=== PATIENT | male | born 1975 ===

== ENCOUNTER → 2019-12-05 09:55 | Outpatient (BNVA) | payer OTHER, SELFPAY | PROVIDERS: PCP Nurse Practitioner Family; Referring Provider Nurse Practitioner Family; Visit Provider Orthopaedic Surgery | DX: Z47.1 Aftercare following joint replacement surgery (principal); Z96.651 Presence of right artificial knee joint | CPT/HCPCS: 99212 ==

== ENCOUNTER 2019-12-18 14:38 | Outpatient (REF) | payer OTHER, SELFPAY | END 2019-12-18 14:39 | disposition home or self-care (01) | LOC: HO.LAB 14:38 | PROVIDERS: Visit Provider Nurse Practitioner Family | DX: Z20.828 Contact with and (suspected) exposure to other viral communicable diseases (principal) | CPT/HCPCS: 87635 ==

== ENCOUNTER 2020-01-08 09:00 | Outpatient (RCR) | payer OTHER, SELFPAY ==
--- NOTE | 2020-01-16 08:54 | MHC.PT.DC ---
[facility] [place] Office [place] Office [place] Office [address] Malick Giordano 140 [facility] [phone] F: [phone] F: [phone] F: [phone] F: [phone] Physical Therapy Discharge Report Diagnosis: R TKA Date of Surgery: 10/22/2019 Date of Evaluation: 11/19/19 Date of Discharge: 01/16/20 Treatments to Date: 5 Cancellations to Date: 5 No Shows to Date: 6 Discharge Status: Visit Non-compliance Discharge Summary: The patient has been noncompliant with attendance during this physical therapy plan of care. He did obtain 120 degrees knee flexion and 0 degrees knee extension last visit; however, this was after increased time to warm up and performing active assisted range of motion exercises. He has a home exercise program including knee active assisted range of motion, quad strengthening, and hip strengthening. He has no-showed six total visits and is discharged from this physical therapy plan of care. Electronically signed by: Maria R Guido PT, DPT Please sign and return to therapist. Thank you for your referral.
== END 2020-01-16 08:55 | disposition other institution (70) ==
LOC: HO.PT 09:00
PROVIDERS: PCP Nurse Practitioner Family; Visit Provider Physician Assistant
DX: M17.31 Unilateral post-traumatic osteoarthritis, right knee (principal)
CPT/HCPCS: 97110; 97140; 97530

== ENCOUNTER 2020-01-16 08:50 | Outpatient (REF) | payer OTHER, SELFPAY ==
--- NOTE | 2020-01-16 08:57 | XR_ITS ---
EXAMINATION: CR X-RAY RIGHT KNEE 2 VIEW, X-RAY KNEE STANDING BILATERAL CLINICAL INFORMATION: Right knee arthroplasty, follow-up. COMPARISON: 10/22/2019 Right knee radiographs. TECHNIQUE: PA and lateral views of the right knee as well as bilateral standing views were obtained. FINDIN The patient is status post right knee arthroplasty showing good anatomic alignment with no evidence for hardware malfunction. There is no acute fracture or dislocation. Mild to moderate soft tissue swelling surrounds the right knee. Mild intra-articular soft tissue fullness is also seen. Mild medial femoral-tibial joint space narrowing is seen. No acute abnormality. IMPRESSI 1. Status post right knee arthroplasty without hardware abnormality with presumed postsurgical residual joint effusion and soft tissue swelling. 2. Mild left medial femoral-tibial joint space narrowing.
== END 2020-01-16 08:51 | disposition home or self-care (01) ==
LOC: HO.HOSX 08:50
PROVIDERS: Visit Provider Orthopaedic Surgery
DX: Z96.651 Presence of right artificial knee joint (principal)
CPT/HCPCS: 73560; 73565; 99212

== ENCOUNTER 2020-01-26 10:32 | Outpatient (REF) | payer OTHER, SELFPAY | END 2020-01-26 10:33 | disposition home or self-care (01) | LOC: HO.LAB 10:32 | PROVIDERS: PCP Nurse Practitioner Family; Visit Provider Internal Medicine | DX: Z20.828 Contact with and (suspected) exposure to other viral communicable diseases (principal) | CPT/HCPCS: C9803; U0003 ==

== ENCOUNTER 2020-02-13 11:37 | Outpatient (REF) | payer OTHER, SELFPAY | END 2020-02-13 11:38 | disposition home or self-care (01) | LOC: HO.LAB 11:37 | PROVIDERS: Visit Provider Internal Medicine | DX: Z20.828 Contact with and (suspected) exposure to other viral communicable diseases (principal) | CPT/HCPCS: C9803; U0003 ==

== ENCOUNTER 2020-03-08 08:34 | Outpatient (REF) | payer OTHER, SELFPAY | END 2020-03-08 08:35 | disposition home or self-care (01) | LOC: HO.LAB 08:34 | PROVIDERS: Visit Provider Internal Medicine | DX: Z20.822 Contact with and (suspected) exposure to COVID-19 (principal) | CPT/HCPCS: 36415; C9803; U0003 ==

== ENCOUNTER 2020-03-25 09:06 | Outpatient (REF) | payer OTHER, SELFPAY ==
--- NOTE | 2020-03-25 09:47 | XR_ITS ---
EXAMINATION: XR KNEE, BILATERAL XR KNEE, RIGHT CLINICAL INFORMATION: Pain. COMPARISON: 01/16/2020 TECHNIQUE: AP standing view of both knees. Lateral and sunrise views of the right knee. FINDINGS: Right knee: Total right knee arthroplasty. The distal femoral component articulates appropriately with the tibial plateau and patellar components. No periprosthetic lucency or fracture. No joint effusion. The soft tissues are unremarkable. Left knee: No fracture or subluxation. Mild medial compartment joint space narrowing. Small marginal osteophytes of the medial and lateral compartments. XR/XR knee standing BI IMPRESSION: Total right knee arthroplasty in typical positioning and alignment.
--- NOTE | 2020-03-25 09:47 | XR_ITS ---
EXAMINATION: XR KNEE, BILATERAL XR KNEE, RIGHT CLINICAL INFORMATION: Pain. COMPARISON: 01/16/2020 TECHNIQUE: AP standing view of both knees. Lateral and sunrise views of the right knee. FINDINGS: Right knee: Total right knee arthroplasty. The distal femoral component articulates appropriately with the tibial plateau and patellar components. No periprosthetic lucency or fracture. No joint effusion. The soft tissues are unremarkable. Left knee: No fracture or subluxation. Mild medial compartment joint space narrowing. Small marginal osteophytes of the medial and lateral compartments. XR/XR knee RT 2V IMPRESSION: Total right knee arthroplasty in typical positioning and alignment.
== END 2020-03-25 09:07 | disposition home or self-care (01) ==
LOC: HO.HOSX 09:06
PROVIDERS: Visit Provider Orthopaedic Surgery
DX: M25.561 Pain in right knee (principal); Z96.651 Presence of right artificial knee joint
CPT/HCPCS: 73560; 73565; 99212

== ENCOUNTER → 2020-09-20 07:50 | Outpatient (BNV) | payer OTHER, SELFPAY | PROVIDERS: PCP Nurse Practitioner Family; Visit Provider Internal Medicine | DX: D53.9 Nutritional anemia, unspecified (principal); D69.6 Thrombocytopenia, unspecified; D47.2 Monoclonal gammopathy; R79.89 Other specified abnormal findings of blood chemistry | CPT/HCPCS: 99213; 99214; G2211 ==

== ENCOUNTER 2020-12-25 03:20 | Emergency (ER) | payer OTHER, SELFPAY ==
--- NOTE | ~2020-12-25 | CT_ITS ---
EXAMINATION: CT ABDOMEN AND PELVIS WITHOUT CONTRAST CLINICAL INFORMATION: Flank pain COMPARISON: 09/04/2019 TECHNIQUE: Multidetector volumetric imaging was performed from the superior aspect of the liver through the pubic symphysis. Sagittal and coronal reformatted images were obtained on the technologist's workstation. This CT examination was performed using dose optimization techniques as appropriate, variously including the following: *Automated exposure control *Adjustment of mA and/or kV according to patient size (this includes techniques or standardized protocols for targeted exams where dose is matched to indication/reason for exam; i.e. extremities or head) *Use of iterative reconstruction technique DLP: 1253 mGy-cm FINDINGS: LUNG BASES: The visualized lung bases are unremarkable. Coronary artery calcifications are present. LIVER, GALLBLADDER, AND BILIARY TREE: The liver demonstrates decreased echogenicity suspicious for fatty infiltration. No biliary ductal dilatation is present. The gallbladder is unremarkable with no evidence of radiopaque gallstones, gallbladder wall thickening, or obvious pericholecystic inflammatory changes. PANCREAS: Unremarkable. SPLEEN: Unremarkable. ADRENAL GLANDS: Unremarkable. KIDNEYS AND URETERS: There is a 2 mm calculus in the distal right ureter with mild hydronephrosis and perinephric stranding. Punctate calculi are present in the right lower pole. There are 2 calculi in the mid left kidney measuring up to 4 mm. No left hydronephrosis or ureteral calculus. BLADDER: Unremarkable. GASTROINTESTINAL TRACT: The small and large bowel are unremarkable. The appendix is unremarkable. No free fluid or free air is seen. ABDOMINAL WALL: No significant hernia is appreciated. LYMPH NODES: Normal. VASCULAR: Scattered atherosclerotic calcifications are noted. PELVIC VISCERA: Unremarkable. OSSEOUS STRUCTURES: Degenerative changes are present in the spine, most prominently in the lower lumbar spine. CT/CT abdomen pelvis wo con IMPRESSION: 1. Distal right ureteral calculus measuring 2 mm with mild hydronephrosis. 2. Additional bilateral renal calculi. 3. Coronary artery calcifications. Correlation with cardiac risk factors is recommended. 4. Hepatic steatosis.
[2020-12-25 03:27] VITALS: BP 150/80; PULSE 86; RESP 18; TEMP 36.6; O2SAT 99; BMI 38.3
[2020-12-25 04:07] LABS: MANUAL DIFF FLAG NO
[2020-12-25 04:08] LABS: Basophils Percent Auto 0.4 % (0-2); Eosinophils Absolute Auto 0.1 X10*3/uL (0.0-0.4); Eosinophils Percent Auto 1.2 % (0-4); Hematocrit 40.9 % (42-52); Hemoglobin 13.8 g/dl (14.0-18.0); Imm Gran Abs Auto 0.02 X10*3/uL (0.00-0.03); Imm Gran Pct Auto 0.3 % (0.0-0.4); Lymphocytes Absolute Auto 2.4 X10*3/uL (1.2-4.9); Lymphocytes Percent Auto 33.4 % (20-40); Mean Corpuscular HGB Conc 33.7 g/dl (31.0-36.0); Mean Corpuscular Hemoglobin 32.2 pg (27.0-33.0); Mean Corpuscular Volume 95.3 fL (80-98); Mean Platelet Volume 12.1 fL (9.4-12.4); Monocytes Absolute Auto 0.6 X10*3/uL (0.1-1.2); Monocytes Percent Auto 8.4 % (2-11); Neutrophils Absolute Auto 4.1 X10*3/uL (2.0-8.3); Neutrophils Percent Auto 56.3 % (45-73); Platelet Count 119 X10*3/uL (160-400); Red Blood Count 4.29 X10*6/uL (4.60-5.80); Red Cell Distribution Width 11.9 % (11.0-16.0); White Blood Count 7.3 X10*3/uL (4.8-10.8)
[2020-12-25 04:24] LABS: Appearance Urine HAZY; Color Urine YELLOW; Glucose Urine UA 100 MG/DL (NEG); Leukocyte Esterase Urine NEG (NEG); Nitrite Urine NEG (NEG); Specific Gravity - Urine >= 1.030 (1.005-1.025); UACC Culture Trigger NO; Urine Blood 3+ (NEG); Urine Ketones NEG (NEG); Urine Protein 1+ MG/DL (NEG-TRACE)
[2020-12-25 04:28] LABS: Alanine Aminotransferase 74 U/L (0-40); Albumin Level 4.7 g/dL (3.5-5.0); Alkaline Phosphatase 112 U/L (39-117); Anion Gap 14 (12-20); Aspartate Amino Transferase 57 U/L (5-37); Bilirubin Direct 0.6 mg/dL (0.0-0.5); Blood Urea Nitrogen 15 mg/dL (9-16); Calcium 9.5 mg/dL (8.4-10.2); Carbon Dioxide 27 mmol/L (22-29); Chloride 100 mmol/L (96-108); Creatinine Clr Calc Pharmacy 122.1; Estimated Glomerular Filt Rate > 60; Glucose Random 333 mg/dL (60-115); Lipase 25 U/L (8-78); Potassium 3.6 mmol/L (3.3-5.1); Sodium 137 mmol/L (135-145); Total Protein 8.2 g/dL (6.5-8.0)
[2020-12-25 04:31] LABS: Bacteria Urine 1+ /LPF; Granular Casts Urine 0-2 /LPF; Hyaline Casts Urine 0-2 /LPF; Mucus Urine 2+ /LPF; RBC Urine 50-75 /HPF (0); Squamous Epithelial Cell Urine 1+ /LPF; UACC CULT YES
[2020-12-25] MEDS: Ketorolac Tromethamine 15 MG/ML VIAL IVPUSH (05:20)
[2020-12-25] MEDS: 0.9 % Sodium Chloride 1,000 ML 999 ML IV (05:20)
[2020-12-25] MEDS: ondansetron HCL 4 MG/2 ML VIAL IVPUSH (05:20)
[2020-12-25 05:42] VITALS: BP 143/90; PULSE 72; RESP 15; TEMP 36.9; O2SAT 100
[2020-12-25 06:00] VITALS: BP 122/64; PULSE 73; RESP 16; TEMP 37.1; O2SAT 98
[2020-12-25 07:38] VITALS: BP 121/69; PULSE 70; RESP 14; TEMP 36.7; O2SAT 94
--- NOTE | 2020-12-25 07:57 | ED.GENADULT ---
HPI - General Adult General Chief complaint: General Medical Stated complaint: abd pain, nausea Time Seen by Provider: 12/25/20 05:16 Source: patient Mode of arrival: ambulatory History of Present Illness HPI narrative: 45-year-old male with history renal colic presents with acute onset of right-sided flank pain that was sharp and stabbing in nature with 10/10 pains associated with nausea and vomiting as well as chills. Denies any urinary symptoms, shortness of breath/chest pain/palpitations. Related Data Home Medications Medication Instructions Recorded Confirmed acetaminophen 325 mg tablet 325 mg PO DAILY 11/29/19 09/20/20 aspirin 325 mg tablet,delayed 325 mg PO BID 11/29/19 09/20/20 release atorvastatin 10 mg tablet 10 mg PO DAILY 11/29/19 09/20/20 cholecalciferol (vitamin D3) 50 50 mcg PO DAILY 11/29/19 09/20/20 mcg (2,000 unit) tablet ibuprofen 600 mg tablet 600 mg PO TID 11/29/19 09/20/20 levothyroxine 200 mcg tablet 200 mcg PO DAILY 11/29/19 09/20/20 lidocaine 5 % topical patch 1 patch TOPICAL DAILY 11/29/19 09/20/20 Previous Rx's Medication Instructions Recorded cyclobenzaprine 10 mg tablet 10 mg PO BEDTIME #14 tab 11/16/20 meloxicam 15 mg tablet 15 mg PO DAILY #14 tab 11/16/20 amoxicillin 500 mg tablet 2,000 mg PO ONCE 1 Days #4 tab 12/20/20 tamsulosin 0.4 mg capsule (Flomax) 0.4 mg PO BEDTIME 4 Days #4 cap 12/25/20 Allergies Allergy/AdvReac Type Severity Reaction Status Date / Time No Known Allergies Allergy Verified 11/16/20 16:30 [No Known Allergies*] Review of Systems Review of Systems: Pertinent positives and negatives as stated in HPI 10 point review of systems is otherwise negative. [facility] Past Medical History Source: nursing notes reviewed Medical History Hypothyroid Surgical History History of arthroscopy of right knee (~03/29/16) History of total right knee replacement (~09/2019) Family History Family History Father Stroke Heart attack Low blood pressure Mother No problems noted. Daughter No problems noted. 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 GENERAL: Obese, Well developed, well nourished HEAD: Normocephalic/atraumatic EYES: PERRLA, EOMI OROPHARYNX: no oral lesions noted, posterior pharynx clear and non-erythematous without noted tonsillar enlargement/erythema/exudates NECK: Supple, no adenopathy LUNGS: Normal breath sounds. No adventitious sounds or accessory muscle use. SpO2<94> CARDIOVASCULAR: Regular rate and rhythm without noted murmurs ABDOMEN: Obese, Soft, right-sided abdominal tenderness, non-distended with bowel sounds. NEUROLOGIC: Alert and oriented x 4. Course Course Course Narrative: 45-year-old male with history and clinical presentation suspicious for renal colic/ureterolithiasis, but will rule out UTI, gallbladder, appendicitis. Patient received antiemetic, IV fluids as well as pain medication. On review of all investigations findings consistent with renal colic and ureterolithiasis as well as hyper glycemia. Medical Decision Making Lab Data Result diagrams: 12/25/20 04:01 12/25/20 04:01 Labs: Lab Results 12/25/20 12/25/20 12/25/20 Range/Units 04:01 04:01 04:19 WBC 7.3 (4.8-10.8) X10*3/uL RBC 4.29 L (4.60-5.80) X10*6/uL Hgb 13.8 L (14.0-18.0) g/dl Hct 40.9 L (42-52) % MCV 95.3 (80-98) fL MCH 32.2 (27.0-33.0) pg MCHC 33.7 (31.0-36.0) g/dl RDW 11.9 (11.0-16.0) % Plt Count 119 L (160-400) X10*3/uL MPV 12.1 (9.4-12.4) fL Immature Gran % (Auto) 0.3 (0.0-0.4) % Neut % (Auto) 56.3 (45-73) % Lymph % (Auto) 33.4 (20-40) % Dickson % (Auto) 8.4 (2-11) % Eos % (Auto) 1.2 (0-4) % Baso % (Auto) 0.4 (0-2) % Lymph # (Auto) 2.4 (1.2-4.9) X10*3/uL Dickson # (Auto) 0.6 (0.1-1.2) X10*3/uL Eos # (Auto) 0.1 (0.0-0.4) X10*3/uL Baso # (Auto) 0.0 (0.0-0.2) X10*3/uL Abs Immat Gran (auto) 0.02 (0.00-0.03) X10*3/uL Absolute Neuts (auto) 4.1 (2.0-8.3) X10*3/uL Absolute Nucleated RBC 0.000 (0.0-0.012) X10*3/uL Nucleated RBC % (auto) 0.0 (0.0-0.2) /100WBC Sodium 137 (135-145) mmol/L Potassium 3.6 D (3.3-5.1) mmol/L Chloride 100 (96-108) mmol/L Carbon Dioxide 27 (22-29) mmol/L Anion Gap 14 (12-20) BUN 15 (9-16) mg/dL Creatinine 1.18 (0.5-1.4) mg/dL Estim Creat Clear Calc 122.1 Estimated GFR > 60 Random Glucose 333 H D (60-115) mg/dL Calcium 9.5 (8.4-10.2) mg/dL Total Bilirubin 2.0 H (0.0-1.0) mg/dL Direct Bilirubin 0.6 H (0.0-0.5) mg/dL AST 57 H (5-37) U/L ALT 74 H (0-40) U/L Alkaline Phosphatase 112 D (39-117) U/L Total Protein 8.2 H (6.5-8.0) g/dL Albumin 4.7 (3.5-5.0) g/dL Lipase 25 (8-78) U/L Urine Color YELLOW Urine Appearance HAZY Urine pH 6.0 (5.0-8.0) Ur Specific [place] >= 1.030 H (1.005-1.025) Urine Protein 1+ H (NEG-TRACE) MG/DL Urine Glucose (UA) 100 H (NEG) MG/DL Urine Ketones NEG (NEG) MG/DL Urine Blood 3+ H (NEG) Urine Nitrite NEG (NEG) Ur Leukocyte Esterase NEG (NEG) Urine RBC 50-75 H (0) /HPF Urine WBC 5-9 H (0-4) /HPF Ur Squamous Epith Cells 1+ /LPF Urine Bacteria 1+ /LPF Hyaline Casts 0-2 /LPF Granular Casts 0-2 /LPF Urine Mucus 2+ /LPF Discharge Plan Discharge Clinical Impression: Renal colic, Ureterolithiasis, Hyperglycemia Patient Disposition: Home, Self-Care Instructions: Renal Colic (ED), Nondiabetic Hyperglycemia (ED), Ureteral Stones (ED) Additional Instructions: Tylenol 1000 mg, orally, every 6 hours as needed for pain control. Do not exceed 4000 mg within 24 hours. Ibuprofen 400 mg, orally with milk or food, every 6 hours as needed for pain control. Follow-up with your primary care provider Sunday morning for re-evaluation further outpatient management of your elevated glucose level You have been provided with a referral to see Urology regarding your kidney stones. Return to the ER for acute worsening of symptoms. Prescriptions: New tamsulosin [Flomax] 0.4 mg capsule 0.4 mg PO BEDTIME 4 Days Qty: 4 RF: 0 No Action amoxicillin 500 mg tablet 2,000 mg PO ONCE 1 Days Qty: 4 RF: 3 meloxicam 15 mg tablet 15 mg PO DAILY Qty: 14 RF: 0 cyclobenzaprine 10 mg tablet 10 mg PO BEDTIME Qty: 14 RF: 0 levothyroxine 200 mcg tablet 200 mcg PO DAILY RF: 0 aspirin 325 mg tablet,delayed release (DR/EC) 325 mg PO BID RF: 0 acetaminophen 325 mg tablet 325 mg PO DAILY RF: 0 lidocaine 5 % adhesive patch,medicated 1 patch topical DAILY RF: 0 ibuprofen 600 mg tablet 600 mg PO TID RF: 0 cholecalciferol (vitamin D3) 50 mcg (2,000 unit) tablet 50 mcg PO DAILY RF: 0 atorvastatin 10 mg tablet 10 mg PO DAILY RF: 0 Referrals: Gonsalo Jean Baptiste FNP-MAKENZIE [Primary Care Provider] - 2 days Joe Oneal MD [Physician] - 2 days (2mm right distal stone, hx renal colic)
[2020-12-25 08:00] VITALS: BP 119/51; PULSE 70; O2SAT 96
[2020-12-25] MEDS: fentaNYL citrate/PF 100 MCG/2 ML VIAL 25 MCG IVPUSH (08:47)
== END 2020-12-25 09:30 | disposition home or self-care (01) ==
PROVIDERS: Emergency Provider Emergency Medicine; PCP Nurse Practitioner Family
DX: N20.1 Calculus of ureter (principal); N23 Unspecified renal colic; R73.9 Hyperglycemia, unspecified; Z79.899 Other long term (current) drug therapy
CPT/HCPCS: 36415; 74176; 80053; 81001; 82248; 83690; 85025; 87086; 96361; 96374; 96375; 99284; 99285; J1885; J2405; J3010

== ENCOUNTER 2020-12-25 16:14 | Emergency (ER) | payer OTHER, SELFPAY ==
[2020-12-25 16:31] VITALS: BP 170/100; BP 197/89; PULSE 76; PULSE 84; RESP 18; TEMP 36.6; O2SAT 95; O2SAT 97; BMI 38.3
--- NOTE | 2020-12-25 16:34 | ED_ITS ---
HPI - Abdominal Pain General Chief Complaint: Urogenital-Male Stated Complaint: flank pain Time Seen by Provider: 12/25/20 16:25 Source: patient and EMS Mode of arrival: EMS History of Present Illness HPI narrative: 45-year-old male with a past medical history of renal stones, recently diagnosed with distal right ureteral stone and our ED early this morning presenting complaining of persistent/worsening right lower quadrant abdominal pain radiating to right flank with associated nausea, vomiting, and retching. 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 Patient denies polydipsia/polyuria, headache, vision changes, CP/SOB, fever, dysuria, hematuria On chart review 2mm calculus in the distal right ureter with mild hydro and perinephric stranding. Two calculi in the left kidney. Renal function WNL. 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 yet MD elicited complaint: abdominal pain Related Data Home Medications Medication Instructions Recorded Confirmed acetaminophen 325 mg tablet 325 mg PO DAILY 11/29/19 09/20/20 aspirin 325 mg tablet,delayed 325 mg PO BID 11/29/19 09/20/20 release atorvastatin 10 mg tablet 10 mg PO DAILY 11/29/19 09/20/20 cholecalciferol (vitamin D3) 50 50 mcg PO DAILY 11/29/19 09/20/20 mcg (2,000 unit) tablet ibuprofen 600 mg tablet 600 mg PO TID 11/29/19 09/20/20 levothyroxine 200 mcg tablet 200 mcg PO DAILY 11/29/19 09/20/20 lidocaine 5 % topical patch 1 patch TOPICAL DAILY 11/29/19 09/20/20 Previous Rx's Medication Instructions Recorded cyclobenzaprine 10 mg tablet 10 mg PO BEDTIME #14 tab 11/16/20 meloxicam 15 mg tablet 15 mg PO DAILY #14 tab 11/16/20 amoxicillin 500 mg tablet 2,000 mg PO ONCE 1 Days #4 tab 12/20/20 acetaminophen 500 mg tablet 500 mg PO Q6H PRN #20 tab 12/25/20 (Tylenol Extra Strength) ketorolac 10 mg tablet 10 mg PO TID PRN 5 Days #15 tab 12/25/20 metformin 500 mg tablet 500 mg PO BID 14 Days #28 tab 12/25/20 ondansetron HCl 4 mg tablet 4 mg PO Q8H PRN #10 tab 12/25/20 (Zofran) tamsulosin 0.4 mg capsule (Flomax) 0.4 mg PO BEDTIME 4 Days #4 cap 12/25/20 Allergies Allergy/AdvReac Type Severity Reaction Status Date / Time No Known Allergies Allergy Verified 11/16/20 16:30 [No Known Allergies*] Review of Systems Review of Systems Constitutional: No Fever, + Chills, No Fatigue, No Malaise ENT/Mouth: No Ear Pain, No Nasal Congestion, No sore throat, No Rhinorrhea, No Swallowing Difficulty Eyes: No Eye Pain, No Swelling, No Redness, No Foreign Body, No Discharge, No Vision Changes Cardiovascular: No Chest Pain, No SOB Respiratory: No Cough, No Dyspnea Gastrointestinal: + Nausea, + Vomiting, No Diarrhea, No Constipation, + Abdominal pain Genitourinary: No irregular bleeding, No Dysuria, No Urinary Frequency, No Hematuria, No Urgency, + Flank Pain, No Urinary Flow Changes, No Hesitancy Musculoskeletal: No joint pain, No Myalgias, No Joint Swelling Skin: No Skin Lesions, No rash Neuro: No Weakness, No Numbness, No Paresthesias, No Loss of Consciousness, No Dizziness, No Headache Yes all other systems are reviewed and are negative Physical Exam Vital Signs: Vital Signs: Last Vital Signs Temp 98 F 12/25/20 16:31 Pulse 76 12/25/20 16:31 Resp 18 12/25/20 16:31 BP 197/89 H 12/25/20 16:31 Pulse Ox 95 12/25/20 16:31 Body Mass Index 38.3 Const: General: cooperative, healthy appearing and no acute distress Orientation/consciousness: patient oriented x3 Limitations: no limitations HENMT: Head: Yes normal to inspection and Yes atraumatic Ears: hearing grossly normal bilaterally General nose exam: Normal external nose present Face and sinus: Yes normal facial exam Eyes: General: appearance normal, both eyes and all related structures EOM: EOMs intact bilaterally Neck: Neck: Yes normal visual inspection Resp: Effort & Inspection: normal respiratory effort Auscultation: clear to auscultation bilaterally, no rales, no rhonchi and no wheezes Cardio: Rate: regular rate Heart sounds: S1 normal heart sound present and S2 normal heart sound present GI: Inspection: Yes normal to inspection Palpation (GI): Soft to palpation, Tenderness to palpation present (GI) in the RLQ, no guarding and not rigid : General: Yes no CVA tenderness Back/Spine/Pelvis: Back: no CVA tenderness Skin: Rashes: no rashes Wounds: no wounds Neuro: General: patient oriented x3 Gait exam (Neuro): Normal gait present Extrem: General: Yes normal to inspection Course Course Course Narrative: -no leukocytosis. H&H stable. Renal function WNL. Glucose elevated at 480, no anion gap. > will give patient 10 units of IV insulin in DC with 500 mg of Metformin b.i.d. to follow-up with PCP -AST/ALT acute on chronically elevated -1899--repeat POC for limited 10 units IV insulin. Additional 5 units ordered with IVF running. Patient comfortable at this time -1999--repeat POC 353 > additional 5 units IV insulin ordered -2116--repeat glucose 296. Will initiate patient on 500 mg b.i.d. metformin with close PCP follow-up. Patient remains with pain controlled, no nausea or vomiting since ED arrival. Discussed worrisome signs and symptoms and strict return precautions and need follow-up with Urology MDM - Abdominal Pain MDM Narrative Medical decision making narrative: 45-year-old male with a past medical history of renal stones, recently diagnosed with distal right ureteral stone and our ED early this morning presenting complaining of persistent/worsening right lower quadrant abdominal pain radiating to right flank with associated nausea, vomiting, and retching. 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 On exam hypertensive, NAD/nontoxic, abdomen soft with RLQ TTP, no CVAT, no rebound or guarding. Concern for renal colic due to known right ureteral stone. R/o JORGE and UTI. Rule out DKA vs HHS vs hyperglycemia. Unlikely appendicitis/diverticulitis Plan: Repeat labs, UA, IVF, symptomatic treatment, reassessed. Patient received 30 mg of Toradol and 4 mg of Zofran by EMS Medical Records Attestation: I reviewed the patient's medical records. Lab Data Attestation: I reviewed the patient's lab results. Result diagrams: 12/25/20 16:45 12/25/20 17:20 Labs: Lab Results 12/25/20 12/25/20 12/25/20 Range/Units 16:45 17:20 18:20 WBC 7.4 (4.8-10.8) X10*3/uL RBC 3.80 L (4.60-5.80) X10*6/uL Hgb 12.0 L (14.0-18.0) g/dl Hct 36.2 L (42.0-52.0) % MCV 95.3 (80.0-98.0) fL MCH 31.6 (27.0-33.0) pg MCHC 33.1 (31.0-36.0) g/dl RDW 11.9 (11.0-16.0) % Plt Count 100 L (160-400) X10*3/uL MPV 13.0 H (9.4-12.4) fL Immature Gran % (Auto) 0.3 (0.0-0.4) % Neut % (Auto) 70.6 (45-73) % Lymph % (Auto) 19.8 L (20-40) % Tucker % (Auto) 9.1 (2-11) % Eos % (Auto) 0.1 (0-4) % Baso % (Auto) 0.1 (0-2) % Lymph # (Auto) 1.5 (1.2-4.9) X10*3/uL Tucker # (Auto) 0.7 (0.1-1.2) X10*3/uL Eos # (Auto) 0.0 (0.0-0.4) X10*3/uL Baso # (Auto) 0.0 (0.0-0.2) X10*3/uL Abs Immat Gran (auto) 0.02 (0.00-0.03) X10*3/uL Absolute Neuts (auto) 5.21 (2.0-8.3) x10*3/uL Absolute Nucleated RBC 0.000 (0.0-0.012) X10*3/uL Nucleated RBC % (auto) 0.0 (0.0-0.2) /100WBC Sodium 134 L (135-145) mmol/L Potassium 4.2 (3.3-5.1) mmol/L Chloride 103 (96-108) mmol/L Carbon Dioxide 22 (22-29) mmol/L Anion Gap 13 (12-20) BUN 18 H (9-16) mg/dL Creatinine 1.29 (0.5-1.4) mg/dL Estim Creat Clear Calc 111.7 Estimated GFR > 60 POC Glucose 411 H* (60-115) mg/dL Random Glucose 480 H* (60-115) mg/dL Calcium 8.4 D (8.4-10.2) mg/dL Magnesium 1.7 (1.6-2.6) mg/dL Total Bilirubin 1.8 H (0.0-1.0) mg/dL Direct Bilirubin 0.5 (0.0-0.5) mg/dL AST 45 H (5-37) U/L ALT 58 H (0-40) U/L Alkaline Phosphatase 93 (39-117) U/L Total Protein 6.9 (6.5-8.0) g/dL Albumin 4.1 (3.5-5.0) g/dL Lipase 21 (8-78) U/L Urine Color Urine Appearance Urine pH (5.0-8.0) Ur Specific [place] (1.005-1.025) Urine Protein (NEG-TRACE) MG/DL Urine Glucose (UA) (NEG) MG/DL Urine Ketones (NEG) MG/DL Urine Blood (NEG) Urine Nitrite (NEG) Ur Leukocyte Esterase (NEG) Urine RBC (0) /HPF Urine WBC (0-4) /HPF Ur Squamous Epith Cells /LPF Urine Bacteria /LPF 12/25/20 12/25/20 12/25/20 Range/Units 18:29 18:54 19:57 WBC (4.8-10.8) X10*3/uL RBC (4.60-5.80) X10*6/uL Hgb (14.0-18.0) g/dl Hct (42.0-52.0) % MCV (80.0-98.0) fL MCH (27.0-33.0) pg MCHC (31.0-36.0) g/dl RDW (11.0-16.0) % Plt Count (160-400) X10*3/uL MPV (9.4-12.4) fL Immature Gran % (Auto) (0.0-0.4) % Neut % (Auto) (45-73) % Lymph % (Auto) (20-40) % Tucker % (Auto) (2-11) % Eos % (Auto) (0-4) % Baso % (Auto) (0-2) % Lymph # (Auto) (1.2-4.9) X10*3/uL Tucker # (Auto) (0.1-1.2) X10*3/uL Eos # (Auto) (0.0-0.4) X10*3/uL Baso # (Auto) (0.0-0.2) X10*3/uL Abs Immat Gran (auto) (0.00-0.03) X10*3/uL Absolute Neuts (auto) (2.0-8.3) x10*3/uL Absolute Nucleated RBC (0.0-0.012) X10*3/uL Nucleated RBC % (auto) (0.0-0.2) /100WBC Sodium (135-145) mmol/L Potassium (3.3-5.1) mmol/L Chloride (96-108) mmol/L Carbon Dioxide (22-29) mmol/L Anion Gap (12-20) BUN (9-16) mg/dL Creatinine (0.5-1.4) mg/dL Estim Creat Clear Calc Estimated GFR POC Glucose 401 H* 353 H* (60-115) mg/dL Random Glucose (60-115) mg/dL Calcium (8.4-10.2) mg/dL Magnesium (1.6-2.6) mg/dL Total Bilirubin (0.0-1.0) mg/dL Direct Bilirubin (0.0-0.5) mg/dL AST (5-37) U/L ALT (0-40) U/L Alkaline Phosphatase (39-117) U/L Total Protein (6.5-8.0) g/dL Albumin (3.5-5.0) g/dL Lipase (8-78) U/L Urine Color YELLOW Urine Appearance CLEAR Urine pH 6.0 (5.0-8.0) Ur Specific [place] 1.010 (1.005-1.025) Urine Protein NEG (NEG-TRACE) MG/DL Urine Glucose (UA) >=1000 H (NEG) MG/DL Urine Ketones NEG (NEG) MG/DL Urine Blood 3+ H (NEG) Urine Nitrite NEG (NEG) Ur Leukocyte Esterase NEG (NEG) Urine RBC 5-9 H (0) /HPF Urine WBC 0-2 (0-4) /HPF Ur Squamous Epith Cells TRACE /LPF Urine Bacteria NONE /LPF 12/25/20 Range/Units 20:55 WBC (4.8-10.8) X10*3/uL RBC (4.60-5.80) X10*6/uL Hgb (14.0-18.0) g/dl Hct (42.0-52.0) % MCV (80.0-98.0) fL MCH (27.0-33.0) pg MCHC (31.0-36.0) g/dl RDW (11.0-16.0) % Plt Count (160-400) X10*3/uL MPV (9.4-12.4) fL Immature Gran % (Auto) (0.0-0.4) % Neut % (Auto) (45-73) % Lymph % (Auto) (20-40) % Tucker % (Auto) (2-11) % Eos % (Auto) (0-4) % Baso % (Auto) (0-2) % Lymph # (Auto) (1.2-4.9) X10*3/uL Tucker # (Auto) (0.1-1.2) X10*3/uL Eos # (Auto) (0.0-0.4) X10*3/uL Baso # (Auto) (0.0-0.2) X10*3/uL Abs Immat Gran (auto) (0.00-0.03) X10*3/uL Absolute Neuts (auto) (2.0-8.3) x10*3/uL Absolute Nucleated RBC (0.0-0.012) X10*3/uL Nucleated RBC % (auto) (0.0-0.2) /100WBC Sodium (135-145) mmol/L Potassium (3.3-5.1) mmol/L Chloride (96-108) mmol/L Carbon Dioxide (22-29) mmol/L Anion Gap (12-20) BUN (9-16) mg/dL Creatinine (0.5-1.4) mg/dL Estim Creat Clear Calc Estimated GFR POC Glucose 296 H (60-115) mg/dL Random Glucose (60-115) mg/dL Calcium (8.4-10.2) mg/dL Magnesium (1.6-2.6) mg/dL Total Bilirubin (0.0-1.0) mg/dL Direct Bilirubin (0.0-0.5) mg/dL AST (5-37) U/L ALT (0-40) U/L Alkaline Phosphatase (39-117) U/L Total Protein (6.5-8.0) g/dL Albumin (3.5-5.0) g/dL Lipase (8-78) U/L Urine Color Urine Appearance Urine pH (5.0-8.0) Ur Specific [place] (1.005-1.025) Urine Protein (NEG-TRACE) MG/DL Urine Glucose (UA) (NEG) MG/DL Urine Ketones (NEG) MG/DL Urine Blood (NEG) Urine Nitrite (NEG) Ur Leukocyte Esterase (NEG) Urine RBC (0) /HPF Urine WBC (0-4) /HPF Ur Squamous Epith Cells /LPF Urine Bacteria /LPF Discharge Plan Discharge Clinical Impression: Renal colic, Diabetes mellitus, new onset Patient Disposition: Home, Self-Care Instructions: Kidney Stones (ED), Renal Colic (ED), Diabetes and Exercise (ED) Additional Instructions: Your blood work is reassuring You have a known kidney stone that is on its way out You also have new onset diabetes, your glucose is very elevated today. Metformin will help control your sugar, take twice daily as prescribed you need very close follow-up with your primary care doctor Please start taking previously prescribed Flomax. In addition Zofran as an antinausea medication, and ketorolac is a anti-inflammatory/pain medication, take with food You need to follow-up with urology If her pain persists or worsens, becomes unbearable, if nausea/vomiting, frequency and peeing, vision changes or chest pain please return to the ED Prescriptions: New metformin 500 mg tablet 500 mg PO BID 14 Days Qty: 28 RF: 0 ondansetron HCl [Zofran] 4 mg tablet 4 mg PO Q8H PRN (Reason: nausea and vomiting) Qty: 10 RF: 0 ketorolac 10 mg tablet 10 mg PO TID PRN (Reason: pain) 5 Days Qty: 15 RF: 0 acetaminophen [Tylenol Extra Strength] 500 mg tablet 500 mg PO Q6H PRN (Reason: pain or fever) Qty: 20 RF: 0 No Action amoxicillin 500 mg tablet 2,000 mg PO ONCE 1 Days Qty: 4 RF: 3 tamsulosin [Flomax] 0.4 mg capsule 0.4 mg PO BEDTIME 4 Days Qty: 4 RF: 0 meloxicam 15 mg tablet 15 mg PO DAILY Qty: 14 RF: 0 cyclobenzaprine 10 mg tablet 10 mg PO BEDTIME Qty: 14 RF: 0 levothyroxine 200 mcg tablet 200 mcg PO DAILY RF: 0 aspirin 325 mg tablet,delayed release (DR/EC) 325 mg PO BID RF: 0 acetaminophen 325 mg tablet 325 mg PO DAILY RF: 0 lidocaine 5 % adhesive patch,medicated 1 patch topical DAILY RF: 0 ibuprofen 600 mg tablet 600 mg PO TID RF: 0 cholecalciferol (vitamin D3) 50 mcg (2,000 unit) tablet 50 mcg PO DAILY RF: 0 atorvastatin 10 mg tablet 10 mg PO DAILY RF: 0 Referrals: Gonsalo Jean Baptiste FNP-MAKENZIE [Primary Care Provider] - 2 days Joe Oneal MD [Physician] - 5 days [facility] Past Medical History Attestation statement: The following information was validated with the patient. Medical History Hypothyroid Surgical History History of arthroscopy of right knee (~03/29/16) History of total right knee replacement (~09/2019) Family History Family History Father Stroke Heart attack Low blood pressure Mother No problems noted. Daughter No problems noted. 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
[2020-12-25] MEDS: 0.9 % Sodium Chloride 1,000 ML 999 ML IVCONT ×2 (16:52→19:08)
[2020-12-25] MEDS: Morphine Sulfate 2 MG/ML CARTRIDGE IVPUSH ×2 (16:52→19:09)
[2020-12-25] MEDS: Tamsulosin HCL 0.4 MG CAPSULE PO (16:53)
[2020-12-25 17:00] LABS: MANUAL DIFF FLAG NO
[2020-12-25 17:16] LABS: Basophils Percent Auto 0.1 % (0-2); Eosinophils Percent Auto 0.1 % (0-4); Hematocrit 36.2 % (42.0-52.0); Imm Gran Abs Auto 0.02 X10*3/uL (0.00-0.03); Imm Gran Pct Auto 0.3 % (0.0-0.4); Lymphocytes Absolute Auto 1.5 X10*3/uL (1.2-4.9); Lymphocytes Percent Auto 19.8 % (20-40); Mean Corpuscular HGB Conc 33.1 g/dl (31.0-36.0); Mean Corpuscular Hemoglobin 31.6 pg (27.0-33.0); Mean Corpuscular Volume 95.3 fL (80.0-98.0); Monocytes Absolute Auto 0.7 X10*3/uL (0.1-1.2); Monocytes Percent Auto 9.1 % (2-11); Neutrophils Absolute Auto 5.21 x10*3/uL (2.0-8.3); Neutrophils Percent Auto 70.6 % (45-73); Platelet Count 100 X10*3/uL (160-400); Red Cell Distribution Width 11.9 % (11.0-16.0); White Blood Count 7.4 X10*3/uL (4.8-10.8)
[2020-12-25 17:43] LABS: Alanine Aminotransferase 58 U/L (0-40); Albumin Level 4.1 g/dL (3.5-5.0); Alkaline Phosphatase 93 U/L (39-117); Anion Gap 13 (12-20); Aspartate Amino Transferase 45 U/L (5-37); Bilirubin Direct 0.5 mg/dL (0.0-0.5); Bilirubin Total 1.8 mg/dL (0.0-1.0); Blood Urea Nitrogen 18 mg/dL (9-16); Calcium 8.4 mg/dL (8.4-10.2); Carbon Dioxide 22 mmol/L (22-29); Chloride 103 mmol/L (96-108); Creatinine Clr Calc Pharmacy 111.7; Estimated Glomerular Filt Rate > 60; Glucose Random 480 mg/dL (60-115); Lipase 21 U/L (8-78); Magnesium 1.7 mg/dL (1.6-2.6); Potassium 4.2 mmol/L (3.3-5.1); Sodium 134 mmol/L (135-145); Total Protein 6.9 g/dL (6.5-8.0)
[2020-12-25 18:23] LABS: Glucose, Whole Blood 411 mg/dL (60-115)
[2020-12-25] MEDS: Insulin Regular, Human 100 UNIT/ML 3 ML VIAL 10 UNIT IVPUSH (18:25)
[2020-12-25 18:38] LABS: Appearance Urine CLEAR; Color Urine YELLOW; Glucose Urine UA >=1000 MG/DL (NEG); Leukocyte Esterase Urine NEG (NEG); Nitrite Urine NEG (NEG); UACC Culture Trigger NO; Urine Blood 3+ (NEG); Urine Ketones NEG (NEG); Urine Protein NEG (NEG-TRACE)
[2020-12-25 18:48] LABS: WBC Urine 0-2 /HPF (0-4)
[2020-12-25 18:49] LABS: Squamous Epithelial Cell Urine TRACE /LPF
[2020-12-25 18:58] LABS: Glucose, Whole Blood 401 mg/dL (60-115)
[2020-12-25] MEDS: Insulin Regular, Human 100 UNIT/ML 3 ML VIAL IVPUSH ×2 (19:47→20:41)
[2020-12-25 20:01] LABS: Glucose, Whole Blood 353 mg/dL (60-115)
[2020-12-25 21:03] LABS: Glucose, Whole Blood 296 mg/dL (60-115)
== END 2020-12-25 21:31 | disposition home or self-care (01) ==
PROVIDERS: Physician Assistant; Emergency Provider Emergency Medicine; PCP Nurse Practitioner Family
DX: N23 Unspecified renal colic (principal); E11.9 Type 2 diabetes mellitus without complications; Z79.899 Other long term (current) drug therapy
CPT/HCPCS: 36415; 80048; 80076; 81001; 82947; 83690; 83735; 85025; 96361; 96374; 96375; 96376; 99283; 99284; J2270

== ENCOUNTER 2021-01-19 09:29 | Outpatient (REF) | payer OTHER, SELFPAY ==
[2021-01-19 11:21] LABS: Appearance Urine CLEAR; Color Urine YELLOW; Glucose Urine UA NEG (NEG); Leukocyte Esterase Urine NEG (NEG); Nitrite Urine NEG (NEG); PH 5.5 (5.0-8.0); Specific Gravity - Urine >= 1.030 (1.005-1.025); Urine Blood NEG (NEG); Urine Ketones NEG (NEG); Urine Protein NEG (NEG-TRACE)
[2021-01-19 11:33] LABS: Estimated Average Glucose 160 mg/dL; Hemoglobin A1c % 7.2 %
[2021-01-19 11:45] LABS: Cholesterol 105 mg/dL; HDL Cholesterol 33 mg/dL; LDL Cholesterol Calculated 45 mg/dl; Triglycerides 137 mg/dL
[2021-01-19 11:57] LABS: Creatinine Urine 135.91 mg/dL; TSH reflex Free T4 1.95 uIU/mL (0.32-4.0)
== END 2021-01-19 09:30 | disposition home or self-care (01) ==
LOC: HO.HMGCLDS 09:29
PROVIDERS: PCP Nurse Practitioner Family; Visit Provider Nurse Practitioner Family
DX: E11.9 Type 2 diabetes mellitus without complications (principal)
CPT/HCPCS: 36415; 80061; 81003; 82043; 83036; 84443

== ENCOUNTER 2021-04-25 10:22 | Outpatient (REF) | payer OTHER, SELFPAY ==
[2021-04-25 11:22] LABS: MANUAL DIFF FLAG NO
[2021-04-25 11:24] LABS: Appearance Urine CLEAR; Color Urine YELLOW; Glucose Urine UA NEG (NEG); Leukocyte Esterase Urine NEG (NEG); Nitrite Urine NEG (NEG); PH 5.5 (5.0-8.0); Specific Gravity - Urine 1.025 (1.005-1.025); Urine Blood NEG (NEG); Urine Ketones NEG (NEG); Urine Protein NEG (NEG-TRACE)
[2021-04-25 11:34] LABS: Basophils Percent Auto 0.7 % (0-2); Eosinophils Absolute Auto 0.1 X10*3/uL (0.0-0.4); Eosinophils Percent Auto 1.5 % (0-4); Hemoglobin 12.9 g/dl (14.0-18.0); Imm Gran Abs Auto 0.01 X10*3/uL (0.00-0.03); Imm Gran Pct Auto 0.2 % (0.0-0.4); Lymphocytes Absolute Auto 2.5 X10*3/uL (1.2-4.9); Lymphocytes Percent Auto 41.3 % (20-40); Mean Corpuscular HGB Conc 32.3 g/dl (31.0-36.0); Mean Corpuscular Hemoglobin 31.9 pg (27.0-33.0); Mean Corpuscular Volume 98.8 fL (80.0-98.0); Mean Platelet Volume 12.7 fL (9.4-12.4); Monocytes Absolute Auto 0.5 X10*3/uL (0.1-1.2); Monocytes Percent Auto 8.6 % (2-11); Neutrophils Absolute Auto 2.9 x10*3/uL (2.0-8.3); Neutrophils Percent Auto 47.7 % (45-73); Platelet Count 114 X10*3/uL (160-400); Red Blood Count 4.05 X10*6/uL (4.60-5.80); Red Cell Distribution Width 12.3 % (11.0-16.0)
[2021-04-25 11:45] LABS: Estimated Average Glucose 114 mg/dL; Hemoglobin A1c % 5.6 %
[2021-04-25 12:09] LABS: Alanine Aminotransferase 46 U/L (0-40); Albumin Level 4.3 g/dL (3.5-5.0); Alkaline Phosphatase 75 U/L (39-117); Anion Gap 10 (12-20); Aspartate Amino Transferase 40 U/L (5-37); Bilirubin Total 2.1 mg/dL (0.0-1.0); Blood Urea Nitrogen 15 mg/dL (9-16); Calcium 9.3 mg/dL (8.4-10.2); Carbon Dioxide 28 mmol/L (22-29); Chloride 106 mmol/L (96-108); Cholesterol 122 mg/dL; Estimated Glomerular Filt Rate > 60; Glucose Fasting 128 mg/dL (60-99); HDL Cholesterol 38 mg/dL; LDL Cholesterol Calculated 65 mg/dl; Potassium 4.3 mmol/L (3.3-5.1); Sodium 140 mmol/L (135-145); Total Protein 7.1 g/dL (6.5-8.0); Triglycerides 99 mg/dL
[2021-04-25 12:35] LABS: TSH reflex Free T4 0.74 uIU/mL (0.32-4.0)
== END 2021-04-25 10:23 | disposition home or self-care (01) ==
LOC: HO.LAB 10:22
PROVIDERS: PCP Nurse Practitioner Family; Visit Provider Nurse Practitioner Family
DX: E11.9 Type 2 diabetes mellitus without complications (principal)
CPT/HCPCS: 36415; 80053; 80061; 81003; 83036; 84443; 85025

== ENCOUNTER 2021-12-13 08:53 | Outpatient (REF) | payer OTHER, SELFPAY ==
--- NOTE | ~2021-12-13 | XR_ITS ---
EXAMINATION: XR CERVICAL SPINE CLINICAL INFORMATION: Neck pain COMPARISON: None TECHNIQUE: 3 views of the cervical spine were obtained. FINDINGS: Moderate degenerative disc disease with prominent anterior endplate osteophytes at C3-C4, C4-C5, and C5-C6. Straightening of cervical lordosis across these levels. No fracture or prevertebral soft tissue swelling. XR/XR cervical spine 3V IMPRESSION: Moderate multilevel degenerative disc disease. No acute abnormality.
[2021-12-13 11:29] LABS: MANUAL DIFF FLAG NO
[2021-12-13 11:43] LABS: Basophils Percent Auto 0.5 % (0-2); Eosinophils Absolute Auto 0.1 X10*3/uL (0.0-0.4); Eosinophils Percent Auto 1.1 % (0-4); Hematocrit 41.4 % (42.0-52.0); Hemoglobin 13.7 g/dl (14.0-18.0); Imm Gran Abs Auto 0.02 X10*3/uL (0.00-0.03); Imm Gran Pct Auto 0.3 % (0.0-0.4); Lymphocytes Absolute Auto 3.1 X10*3/uL (1.2-4.9); Lymphocytes Percent Auto 46.7 % (20-40); Mean Corpuscular HGB Conc 33.1 g/dl (31.0-36.0); Mean Corpuscular Hemoglobin 32.2 pg (27.0-33.0); Mean Corpuscular Volume 97.2 fL (80.0-98.0); Mean Platelet Volume 12.9 fL (9.4-12.4); Monocytes Absolute Auto 0.5 X10*3/uL (0.1-1.2); Monocytes Percent Auto 7.7 % (2-11); Neutrophils Absolute Auto 2.9 x10*3/uL (2.0-8.3); Neutrophils Percent Auto 43.7 % (45-73); Platelet Count 142 X10*3/uL (160-400); Red Blood Count 4.26 X10*6/uL (4.60-5.80); Red Cell Distribution Width 12.2 % (11.0-16.0); White Blood Count 6.6 X10*3/uL (4.8-10.8)
[2021-12-13 12:05] LABS: Estimated Average Glucose 171 mg/dL; Hemoglobin A1c % 7.6 %
[2021-12-13 12:06] LABS: Alanine Aminotransferase 62 U/L (0-40); Albumin Level 4.9 g/dL (3.5-5.0); Alkaline Phosphatase 88 U/L (39-117); Anion Gap 16 (12-20); Aspartate Amino Transferase 59 U/L (5-37); Bilirubin Total 3.2 mg/dL (0.0-1.0); Blood Urea Nitrogen 16 mg/dL (9-16); Calcium 9.5 mg/dL (8.4-10.2); Carbon Dioxide 25 mmol/L (22-29); Chloride 104 mmol/L (96-108); Cholesterol 133 mg/dL; Estimated Glomerular Filt Rate > 60; Glucose Fasting 182 mg/dL (60-99); HDL Cholesterol 37 mg/dL; LDL Cholesterol Calculated 72 mg/dl; Potassium 4.3 mmol/L (3.3-5.1); Sodium 141 mmol/L (135-145); Total Protein 7.9 g/dL (6.5-8.0); Triglycerides 121 mg/dL
[2021-12-13 12:16] LABS: TSH reflex Free T4 5.42 uIU/mL (0.32-4.0)
[2021-12-13 12:27] LABS: Appearance Urine Clear; Color Urine Yellow; Glucose Urine UA Negative (Negative); Leukocyte Esterase Urine Negative (Negative); Nitrite Urine Negative (Negative); Specific Gravity - Urine 1.015 (1.005-1.025); Urine Blood Negative (Negative); Urine Ketones Negative (Negative); Urine Protein Negative (Neg-Trace)
[2021-12-13 12:45] LABS: Creatinine Urine 133.31 mg/dL
[2021-12-13 13:47] LABS: Free T4 (Free Thyroxine) 1.06 ng/dL (0.71-1.85)
== END 2021-12-13 08:54 | disposition home or self-care (01) ==
LOC: HO.HMGCX 08:53
PROVIDERS: PCP Nurse Practitioner Family; Visit Provider Nurse Practitioner Family
DX: E11.9 Type 2 diabetes mellitus without complications (principal); R17 Unspecified jaundice; M50.90 Cervical disc disorder, unspecified, unspecified cervical region
CPT/HCPCS: 36415; 72040; 80053; 80061; 81003; 82043; 83036; 84439; 84443; 85025

== ENCOUNTER 2021-12-27 08:43 | Outpatient (REF) | payer OTHER, SELFPAY ==
[2021-12-27 12:20] LABS: Bilirubin Direct 0.6 mg/dL (0.0-0.5); Bilirubin Total 2.7 mg/dL (0.0-1.0)
== END 2021-12-27 08:44 | disposition home or self-care (01) ==
LOC: HO.HMGCLDS 08:43
PROVIDERS: PCP Nurse Practitioner Family; Visit Provider Nurse Practitioner Family
DX: R17 Unspecified jaundice (principal)
CPT/HCPCS: 36415; 82247; 82248

== ENCOUNTER 2022-02-21 06:45 | Outpatient (REF) | payer OTHER, SELFPAY ==
[2022-02-21 12:28] LABS: TSH reflex Free T4 0.03 uIU/mL (0.32-4.0)
[2022-02-21 13:09] LABS: Free T4 (Free Thyroxine) 1.44 ng/dL (0.71-1.85)
== END 2022-02-21 06:46 | disposition home or self-care (01) ==
LOC: HO.HMGCLDS 06:45
PROVIDERS: PCP Nurse Practitioner Family; Visit Provider Nurse Practitioner Family
DX: E03.9 Hypothyroidism, unspecified (principal)
CPT/HCPCS: 36415; 84439; 84443

== ENCOUNTER → 2022-03-06 15:42 | Outpatient (BNVA) | payer OTHER, SELFPAY | PROVIDERS: PCP Nurse Practitioner Family; Visit Provider Nurse Practitioner Family | DX: Z01.818 Encounter for other preprocedural examination (principal) | CPT/HCPCS: 99202 ==

== ENCOUNTER 2022-04-05 | Outpatient (REF) | payer OTHER, SELFPAY ==
--- NOTE | ~2022-04-05 | US_ITS ---
EXAMINATION: US ABDOMEN COMPLETE CLINICAL INFORMATION: Evaluate hepatosplenomegaly. COMPARISON: CT abdomen and pelvis 12/25/2020. Ultrasound abdomen 09/17/2019 and 07/30/2014. TECHNIQUE: Real-time imaging of the abdominal viscera. FINDINGS: PANCREAS: The head and the body the pancreas is homogeneous echotexture. The tail is obscured by overlying gas. ABDOMINAL AORTA: The proximal, mid, and distal segments are normal in caliber. INFERIOR VENA CAVA: Visualized portions are normal. LIVER: The liver is enlarged. Right hepatic lobe measures 18.0 cm in length and left hepatic lobe measures 6.0 cm in length. The liver contour is normal. There is diffuse increased liver echogenicity. There is focal fatty sparing adjacent to gallbladder. There is no intrahepatic biliary duct dilatation seen. GALLBLADDER: There is echogenic bile. The gallbladder is physiologically distended without evidence of stones, polyps, wall thickening or pericholecystic fluid. COMMON BILE DUCT: Normal in caliber measuring 0.7 cm in diameter. RIGHT KIDNEY: Normal. No hydronephrosis. No renal calculi or focal parenchymal lesions. The kidney measures 12.1 cm in maximum dimension. LEFT KIDNEY: There is an echogenic stone in midpole measuring 0.5 x 0.6 x 0.6 cm. No hydronephrosis or focal parenchymal lesions. The kidney measures 11.8 cm in maximum dimension. SPLEEN: The spleen is enlarged The spleen measures 14.6 cm in maximum dimension. Previously visualized morning live otherwise FREE FLUID: None. US/US abdomen complete IMPRESSION: 1. Diffuse fatty infiltration of liver with focal fatty sparing adjacent to gallbladder. 2. Mild hepatosplenomegaly. 3. Echogenic bile without echogenic stones or wall thickening. 4. Echogenic stone midpole left kidney without caliectasis or hydronephrosis. 5. Rest of the abdominal ultrasound is unremarkable.
== END 2022-04-05 00:01 ==
LOC: HO.US
PROVIDERS: Visit Provider Internal Medicine
DX: R17 Unspecified jaundice (principal); R16.2 Hepatomegaly with splenomegaly, not elsewhere classified
CPT/HCPCS: 76700

== ENCOUNTER 2022-04-18 10:24 | Outpatient (REF) | payer OTHER, SELFPAY ==
[2022-04-18 11:59] LABS: TSH reflex Free T4 0.57 uIU/mL (0.32-4.0)
== END 2022-04-18 10:25 | disposition home or self-care (01) ==
LOC: HO.HMGCLDS 10:24
PROVIDERS: PCP Nurse Practitioner Family; Visit Provider Nurse Practitioner Family
DX: E03.9 Hypothyroidism, unspecified (principal)
CPT/HCPCS: 36415; 84443

== ENCOUNTER 2023-03-15 11:37 | Outpatient (AMB) | payer OTHER, SELFPAY ==
--- NOTE | 2023-03-15 13:12 | MHC.OFFWIV ---
Intake Vital Signs 03/15/23 13:13 Height 6 ft 4 in Weight 318 lb 0.6 oz BMI 38.7 BP 132/80 Blood Pressure Location Lt brachial Position Sitting Pulse 98 Pulse Source Pulse Oximeter Temp 98.2 F Temp Source Temporal Artery Scan Pulse Oximetry (%) 97 Oxygen Delivery Method Room Air Intake Visit Reasons: EP, sore throat, cough ([phone]) Intake Note: pt is here today for sore throat started 2 days ago Patient Tobacco Use Status: Never used Tobacco Allergies No Known Allergies [No Known Allergies*] Allergy (Verified 03/15/23 13:13) Medication List - Last Reconciled 03/15/23 by Tigist Garg, LETY albuterol sulfate 90 mcg/actuation (ProAir HFA) 1 inh inhalation Q4-6H PRN alcohol swabs (Alcohol Wipes) 1 pad topical BID atorvastatin 10 mg PO DAILY 90 days benzonatate 100 mg PO TID blood sugar diagnostic (FreeStyle Lite Strips) Use to check blood sugar twice a day: fasting and a random blood-glucose meter (FreeStyle Lite Meter kit) Use to check blood sugar twice a day: fasting and a random cholecalciferol (vitamin D3) 50 mcg PO DAILY cyclobenzaprine 10 mg PO BEDTIME flash glucose scanning reader (Med[employer] ServicesStyle Nicole 14 Day [place]) tid flash glucose sensor (FreeStyle Nicole 14 Day Sensor kit) tid testing lancets (FreeStyle Lancets) Use to check blood sugar twice a day: fasting and a random levothyroxine 13 mcg PO DAILY 90 days losartan 25 mg PO DAILY 90 days metformin ER 500 mg PO BID Do you need a note to return to daycare/school/sports/work: Yes HPI HPI Comments History of Present Illness Details 47 y/o male presents to [facility] with c/o sorethroat and cough x 3 days. PFSH Medical History Hypothyroid Kidney stones Surgical History History of arthroscopy of right knee (~03/29/16) History of total right knee replacement (~09/2019) Family History Father Stroke Heart attack Low blood pressure Mother No problems noted. Daughter No problems noted. 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 Cognitive needs: No Hearing needs: No Vision needs: No Review of Systems Const All systems reviewed & are unremarkable except as noted in HPI and below Physical Exam Vital Signs: Last Vital Signs Temp 98.2 F 03/15/23 13:13 Pulse 98 03/15/23 13:13 BP 132/80 03/15/23 13:13 Pulse Ox 97 03/15/23 13:13 Oxygen Delivery Method Room Air 03/15/23 13:13 BMI result Body Mass Index 38.7 Const General: no acute distress HEENT Head: Yes normocephalic Ears: external ears normal and TM's normal bilaterally General nose exam: Normal external nose present Face and sinus: Yes sinuses nontender Mouth: Normal oral and palatal mucosa present and moist mucous membranes Throat: Yes posterior oropharynx normal Resp Effort & Inspection: normal respiratory effort Cardio Rate: regular rate Rhythm: regular rhythm Results AMB Rapid Strep AMB Rapid Strep Negative Last Edit by Rene Fish CMA on 03/15/23 14:09 Results Reviewed Results Reviewed: Laboratory Last Values Strep Scn Rapid Clinic Negative 03/15/23 14:08 Assessment & Plan Assessment & Plan (1) Acute pharyngitis: Code(s): J02.9 - Acute pharyngitis, unspecified Qualifiers: Pharyngitis/tonsillitis etiology: other specified organisms Qualified Code(s): J02.8 - Acute pharyngitis due to other specified organisms Plan: - Rest, hydrate with warm fluids with honey - OTC cold remedies. - Acetaminophen for pain relief. Plan POSITIVE FOR INFLUENZA A - SENT RX FOR TAMIFLU. Orders: Orders AMB Rapid Strep Screen 03/15/23 Z13.9 - Encounter for screening, unspecified SARS-CoV2/FLU/RSV 03/15/23 J02.9 - Acute pharyngitis, unspecified Medications: New oseltamivir (Tamiflu) 75 mg PO BID 10 caps 0RF 5 days J10.1 - Influenza due to other identified influenza virus with other respiratory manifestations benzonatate 100 mg PO TID 30 caps 0RF Coding Level of Care Code Est Pt Level 3 (02410) Diagnoses Acute pharyngitis due to other specified organisms J02.8 Pharyngitis/tonsillitis etiology: other specified organisms Time Spent (min) 15
[2023-03-15 13:13] VITALS: BP 132/80; PULSE 98; TEMP 36.8; O2SAT 97; BMI 38.7
== END 2023-03-15 14:05 | disposition home or self-care (01) ==
PROVIDERS: PCP Nurse Practitioner Family; Visit Provider Nurse Practitioner Family
DX: J02.8 Acute pharyngitis due to other specified organisms (principal)
CPT/HCPCS: 87880; 99213

== ENCOUNTER 2023-03-15 17:06 | Outpatient (REF) | payer OTHER, SELFPAY ==
[2023-03-15 18:04] LABS: Influenza A PCR POSITIVE (Negative); Influenza B PCR NEGATIVE (Negative); Resp Syncy Virus RNA Qual PCR NEGATIVE (Negative); SARS COV2 PCR INHOUSE NEGATIVE (Negative)
== END 2023-03-15 17:07 | disposition home or self-care (01) ==
LOC: HO.HMGCLNP 17:06
PROVIDERS: Visit Provider Nurse Practitioner Family
DX: J02.9 Acute pharyngitis, unspecified (principal); Z11.52 Encounter for screening for COVID-19
CPT/HCPCS: 0241U

== ENCOUNTER 2023-03-19 08:15 | Outpatient (AMB) | payer OTHER, SELFPAY ==
--- NOTE | 2023-03-19 08:27 | MHC.OFFWIV ---
Intake Vital Signs 03/19/23 08:31 Height 6 ft 4 in Weight 318 lb BMI 38.7 BP 140/80 H Blood Pressure Location Rt brachial Position Sitting Pulse 82 Pulse Source Pulse Oximeter Pulse Oximetry (%) 98 Oxygen Delivery Method Room Air Intake Visit Reasons: EP Cold Symptoms not better [phone] Intake Note: pt is here for c/o difficulty breathing, coughing, not sleeping. patient states he took benzotate but did not help and pt states he never got the tamiflu. Patient states he would like the pro air and a antibiotic because he hasn't gotten any better. Patient Tobacco Use Status: Never used Tobacco Allergies No Known Allergies [No Known Allergies*] Allergy (Verified 03/15/23 13:13) Do you need a note to return to daycare/school/sports/work: Yes HPI HPI Comments History of Present Illness Details Patient presents to the walkin today for refill of albuterol inhaler He was here last week and tested for Flu. Message was left for him to call for results but the office was closed. Advised today that he was positive for FluA, he did not receive the tamiflu from the pharmacy after last visit Found albuterol MDI at home, has been using that with good effect Cough non-productive Denies fever, chest pain, palpitations, weakness, dizziness, syncope Patient reports otherwise feeling better, other symptoms have resolved. [facility] Medical History Kidney stones Hypothyroid Surgical History History of total right knee replacement (~09/2019) History of arthroscopy of right knee (~03/29/16) Family History Father Stroke Heart attack Low blood pressure Mother No problems noted. Daughter No problems noted. 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 Answers questions appropriately. Fully engaged in examination. Skin: warm, dry, intact HEENT: Sclera without icterus or injection. no lymphadenopathy Cardiac: External chest normal in appearance. Respiratory: + dry cough. LSCTAB. Abdomen: without gross distension. Neurological: Oriented to person, place, time and situation. Thought process intact. Psychiatric: Appropriate mood and affect. Good judgment and insight. Assessment & Plan Assessment & Plan (1) Cough: Code(s): R05 - Cough Plan Patient presented to walk in requesting refill of his albuterol MDI Tested for Flu last week, advised today that test was positive for FluA Refill of albuterol MDI sent today, patient instructed on use Worknote provided with return date tomorrow Go to ER or return to walkin if using inhaler more than prescribed of for worsening shortness of breath, wheezing not resolved by inhaler. Follow up with pcp or return here as needed. Medications: Refilled albuterol sulfate 90 mcg/actuation (ProAir HFA) 1 inh inhalation Q4-6H PRN 6.7 grams 0RF shortness of breath or wheezing Coding Level of Care Code Est Pt Level 4 (13184) Diagnoses Cough R05
[2023-03-19 08:31] VITALS: BP 140/80; PULSE 82; O2SAT 98; BMI 38.7
== END 2023-03-19 09:02 | disposition home or self-care (01) ==
PROVIDERS: PCP Nurse Practitioner Family; Visit Provider Registered Nurse Emergency
DX: R05.9 Cough, unspecified (principal)
CPT/HCPCS: 99214

== ENCOUNTER 2023-03-22 06:14 | Outpatient (REF) | payer OTHER, SELFPAY ==
[2023-03-22 11:46] LABS: MANUAL DIFF FLAG NO
[2023-03-22 12:08] LABS: Basophils Percent Auto 0.4 % (0-2); Eosinophils Absolute Auto 0.1 X10*3/uL (0.0-0.4); Eosinophils Percent Auto 1.5 % (0-4); Hemoglobin 12.1 g/dl (14.0-18.0); Imm Gran Abs Auto 0.02 X10*3/uL (0.00-0.03); Imm Gran Pct Auto 0.4 % (0.0-0.4); Lymphocytes Absolute Auto 2.4 X10*3/uL (1.2-4.9); Lymphocytes Percent Auto 46.4 % (20-40); Mean Corpuscular HGB Conc 32.7 g/dl (31.0-36.0); Mean Corpuscular Hemoglobin 32.4 pg (27.0-33.0); Mean Corpuscular Volume 99.2 fL (80.0-98.0); Mean Platelet Volume 12.9 fL (9.4-12.4); Monocytes Absolute Auto 0.4 X10*3/uL (0.1-1.2); Neutrophils Absolute Auto 2.3 x10*3/uL (2.0-8.3); Neutrophils Percent Auto 43.3 % (45-73); Platelet Count 108 X10*3/uL (160-400); Red Blood Count 3.73 X10*6/uL (4.60-5.80); Red Cell Distribution Width 11.9 % (11.0-16.0); White Blood Count 5.3 X10*3/uL (4.8-10.8)
[2023-03-22 12:34] LABS: Alanine Aminotransferase 59 U/L (0-40); Albumin Level 4.3 g/dL (3.5-5.0); Alkaline Phosphatase 82 U/L (39-117); Anion Gap 12 (12-20); Aspartate Amino Transferase 54 U/L (5-37); Bilirubin Total 1.6 mg/dL (0.0-1.0); Blood Urea Nitrogen 11 mg/dL (9-16); Calcium 9.2 mg/dL (8.4-10.2); Carbon Dioxide 27 mmol/L (22-29); Chloride 105 mmol/L (96-108); Cholesterol 113 mg/dL (<200); Estimated Glomerular Filt Rate > 60; Glucose Fasting 166 mg/dL (60-99); HDL Cholesterol 32 mg/dL (>40); LDL Cholesterol Calculated 54 mg/dL (<100); Potassium 4.2 mmol/L (3.3-5.1); Sodium 140 mmol/L (135-145); Total Protein 7.4 g/dL (6.5-8.0); Triglycerides 138 mg/dL (<150)
[2023-03-22 12:50] LABS: TSH reflex Free T4 25.56 uIU/mL (0.32-4.0)
[2023-03-22 13:45] LABS: Free T4 (Free Thyroxine) 0.87 ng/dL (0.71-1.85)
== END 2023-03-22 06:15 | disposition home or self-care (01) ==
LOC: HO.HMGCLDS 06:14
PROVIDERS: PCP Nurse Practitioner Family; Visit Provider Nurse Practitioner Family
DX: Z00.00 Encounter for general adult medical examination without abnormal findings (principal); E11.9 Type 2 diabetes mellitus without complications
CPT/HCPCS: 36415; 80053; 80061; 84439; 84443; 85025

== ENCOUNTER 2023-05-30 10:26 | Outpatient (AMB) | payer OTHER, SELFPAY ==
[2023-05-30 10:28] VITALS: BP 128/88; PULSE 87; TEMP 36.1; O2SAT 96; BMI 39.2
--- NOTE | 2023-05-30 10:28 | MHC.OFFWIV ---
Intake Vital Signs 05/30/23 10:28 Height 6 ft 4 in Weight 322 lb BMI 39.2 BP 128/88 Blood Pressure Location Lt brachial Position Sitting Pulse 87 Pulse Source Pulse Oximeter Temp 97.0 F Temp Source Temporal Artery Scan Pulse Oximetry (%) 96 Oxygen Delivery Method Room Air Intake Visit Reasons: EP Lower back pain LT side Intake Note: pt is here today for lower back pain lft side started sunday Patient Tobacco Use Status: Never used Tobacco Allergies No Known Allergies [No Known Allergies*] Allergy (Verified 05/30/23 10:35) Do you need a note to return to daycare/school/sports/work: Yes HPI HPI Comments History of Present Illness Details 47 y/o male patient who presents to walk in clinic with c/o lower back pain since Sunday. Denies any injury or trauma. Denies any Back Surgery. [facility] Medical History Kidney stones Hypothyroid Surgical History History of total right knee replacement (~09/2019) History of arthroscopy of right knee (~03/29/16) Family History Father Stroke Heart attack Low blood pressure Mother No problems noted. Daughter No problems noted. 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 Cognitive needs: No Hearing needs: No Vision needs: No Review of Systems Const All systems reviewed & are unremarkable except as noted in HPI and below Physical Exam Vital Signs: Last Vital Signs Temp 97.0 F 05/30/23 10:28 Pulse 87 05/30/23 10:28 BP 128/88 05/30/23 10:28 Pulse Ox 96 05/30/23 10:28 Oxygen Delivery Method Room Air 05/30/23 10:28 BMI result Body Mass Index 39.2 Const General: comfortable and no acute distress Nutritional Appearance: obese morbidly obese Orientation/consciousness: patient oriented x3 General: Yes no CVA tenderness Back/Spine/Pelvis Back: no CVA tenderness Cervical Spine: cervical ROM normal Thoracic/Lumbar Spine: thoraco-lumbar ROM normal, thoraco-lumbar spasm, thoracic spinal tenderness at T12 and lumbar spinal tenderness at L4 Neuro General: patient oriented x3, gait normal and moves all extremities Psych Speech and movement: Normal speech and movement present Assessment & Plan Assessment & Plan (1) Back pain: Code(s): M54.9 - Dorsalgia, unspecified Qualifiers: Back pain location: low back pain Chronicity: chronic Back pain laterality: left Sciatica presence: without sciatica Qualified Code(s): M54.50 - Low back pain, unspecified; G89.29 - Other chronic pain Plan: - IceHot - Rest - Acetaminophen or Ibuprofen for pain relief. - Ordered PT Plan - IceHot - Rest - Acetaminophen or Ibuprofen for pain relief. - Ordered PT Orders: Orders PT Evaluation and Treatment Today G89.29 - Other chronic pain, M54.50 - Low back pain, unspecified Medications: New ibuprofen 600 mg PO Q6H PRN 30 tabs 0RF pain G89.29 - Other chronic pain, M54.50 - Low back pain, unspecified lidocaine 5% leave on most painful area for up to 12 hrs 1 patch topical DAILY 30 ea 0RF G89.29 - Other chronic pain, M54.50 - Low back pain, unspecified metaxalone 800 mg PO TID 20 tabs 0RF G89.29 - Other chronic pain, M54.50 - Low back pain, unspecified Coding Level of Care Code Est Pt Level 3 (65838) Diagnoses Chronic left-sided low back pain without sciatica M54.50; G89.29 Back pain location: low back pain Chronicity: chronic Back pain laterality: left Sciatica presence: without sciatica Time Spent (min) 15
== END 2023-05-30 11:52 | disposition home or self-care (01) ==
PROVIDERS: PCP Nurse Practitioner Family; Visit Provider Nurse Practitioner Family
DX: M54.50 Low back pain, unspecified (principal); G89.29 Other chronic pain
CPT/HCPCS: 99213

== ENCOUNTER 2023-08-13 10:20 | Outpatient (AMB) | payer OTHER, SELFPAY ==
--- NOTE | 2023-08-13 10:42 | MHC.PC.OV ---
Vital Signs 08/13/23 10:45 Height 6 ft 4 in Weight 301 lb BMI 36.6 BP 116/80 Blood Pressure Location Lt brachial Position Sitting Pulse 88 Pulse Source Pulse Oximeter Pulse Oximetry (%) 98 Oxygen Delivery Method Room Air Intake Visit Reasons: Elevated Blood Sugars Intake Note: Patient here for elevated blood sugar, pt states it was at 330 this morning. Allergies No Known Allergies [No Known Allergies*] Allergy (Verified 08/13/23 10:46) Tobacco use date assessed: 08/13/23 Dental Screening Dental Screen Date: 08/13/23 Did you have a dental visit in the last 12 months?: Yes Did you have a dental problem in the last 6 months where you did not have access to dental care?: No Was dental information given to patient?: Patient has dentist HPI Elevated Blood Sugars HPI Details Pt is a diabetic, on a statin. A1C in office today is 11.0. Due for microalbumin. Denies polyuria, polydipsia, and neuropathy. Pt denies any signs and symptoms of hypoglycemia and does know how to correct it. Random glucose today is 386. Pt has been taking metformin 1000mg bid. Will start ozempic 0.25mg and jardiance 10mg. Will follow up with him. [facility] Medical History Kidney stones Hypothyroid Surgical History History of total right knee replacement (~09/2019) History of arthroscopy of right knee (~03/29/16) Family History Father Stroke Heart attack Low blood pressure Mother No problems noted. Daughter No problems noted. 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 76374 - PHQ-9 Billing: Patient declined-do not bill Source: Developed by Drs. Domingo Estrada, Kayleigh Menjivar, Andrea Stevens and colleagues, with an educational salinas from [employer]. Thrive Questionnaire Date Thrive assessed: 08/13/23 What is your living situation today?: I choose not to answer this question Within the past 12 months, did the food you bought not last and you didn't have the money to get more?: I choose not to answer this question Within the past 12 months, did you worry whether your food would run out before you got money to buy more?: I choose not to answer this question Do you have trouble paying for medicines?: I choose not to answer this question Do you have trouble getting transportation to medical appointments?: I choose not to answer this question Do you have trouble paying your heating and electricity bill?: I choose not to answer this question Do you have trouble taking care of your child, family member or friend?: I choose not to answer this question Do you have trouble with day-to-day activities such as bathing, preparing meals, shopping, managing finances, etc.?: I choose not to answer this question Are you currently unemployed and looking for a job?: I choose not to answer this question Are you interested in more education?: I choose not to answer this question Currently or been in a relationship where the following occur: I choose not to answer this question THRIVE Score: 0 AUDIT C Alcohol Use Questionnaire (AUDIT-C) 1. How often do you have a drink containing alcohol?: Never 3. How often do you have six or more drinks on one occasion?: Never Total Score: 0 Score Reviewed/Action Taken: No SHAGUFTA-7 AMB Questionnaire SHAGUFTA-7 Date SHAGUFTA - 7 assessed: 08/13/23 Source: Developed by Drs. Domingo Estrada, Kayleigh Menjivar, Adnrea Stevens and colleagues, with an educational salinas from [employer]. SHAGUFTA-7 Assessment Billing SHAGUFTA-7 Assessment Tool: pt declined-do not bill Review of Systems Const Reports as per HPI Physical exam (Primary Care) Vital Signs: Last Vital Signs Pulse 88 08/13/23 10:45 BP 116/80 08/13/23 10:45 Pulse Ox 98 08/13/23 10:45 Oxygen Delivery Method Room Air 08/13/23 10:45 BMI result Body Mass Index 36.6 Tobacco/Smoking Status: Tobacco use Status Tobacco use date assessed 08/13/23 08/13/23 10:50 Patient Tobacco Use Status Never used Tobacco 08/13/23 10:42 e-Cigarette/Vaping Use Never Used 08/13/23 10:42 Thrive Assessment: Date of Thrive Assessment Date Thrive assessed 08/13/23 08/13/23 10:54 Currently or been in a relationship where the following occur: I choose not to answer this question Const General: cooperative Nutritional Appearance: obese Orientation/consciousness: patient oriented x3 Resp Effort & Inspection: normal respiratory effort Auscultation: clear to auscultation bilaterally Cardio Rate: regular rate Rhythm: regular rhythm Heart sounds: S1 normal heart sound present and S2 normal heart sound present Neuro General: patient oriented x3 Extrem Other: bilat feet: + sensation with use of monofilament, feet intact Psych Appearance: grossly normal Mental Status: mental status grossly normal Speech and movement: Normal speech and movement present Affect: normal affect Attitude: cooperative Thought process: Normal thought process present Thought content: Normal thought content present Insight: Good insight present (Psych) Judgement: Good judgement present (Psych) Results AMB Random Glucose (hemocue) AMB Random Glucose (hemocue) 386 mg/dL Last Edit by SONNY Dodson on 08/13/23 10:56 AMB Hemoglobin A1c AMB Hemoglobin A1c 11.0 % Last Edit by SONNY Dodson on 08/13/23 10:59 Results Reviewed Results Reviewed: Laboratory Last Values Random Glu (Clinic) 386 mg/dL 08/13/23 10:54 Hgb A1c (Clinic) 11.0 % (4.0-6.0) H 08/13/23 10:54 Assessment and Plan Assessment & Plan (1) Diabetes: Code(s): E11.9 - Type 2 diabetes mellitus without complications Plan: uncontrolled, added jardiance, ozempic, metformin at 1000mg bid. Plan The patient agreed to the use of a medical records technician for this encounter. Scribed for SUSAN Witt by tahir Chauhan scribe, on 08/13/2023 at 11:10 EST. Orders: Orders Complete Blood Count Auto Diff Today E11.9 - Type 2 diabetes mellitus without complications TSH reflex Free T4 Today E11.9 - Type 2 diabetes mellitus without complications UA CC w/rflx Micro + Cult Today E11.9 - Type 2 diabetes mellitus without complications Lipid Panel Today E11.9 - Type 2 diabetes mellitus without complications AMB Random Glucose (hemocue) Today Z13.9 - Encounter for screening, unspecified AMB Hemoglobin A1c Today Z13.9 - Encounter for screening, unspecified Comprehensive [place]. Panel Fast Today E11.9 - Type 2 diabetes mellitus without complications Microalbumin, Random (w Creat) Today E11.9 - Type 2 diabetes mellitus without complications Medications: New semaglutide (Ozempic) for 4 weeks 0.25 mg (0.368 mL) subcut QWEEK 30 days 1.84 mL 0RF empagliflozin (Jardiance) 10 mg PO DAILY 90 days 90 tabs 0RF Changed From metformin ER 500 mg PO BID 180 tabs 1RF To metformin ER 1,000 mg (2 x 500 mg) PO BID 30 days 120 tabs 1RF Coding Level of Care Code Est Pt Level 3 (80793) Complex EM visit Add On G2211 Diagnoses Diabetes E11.9
[2023-08-13 10:45] VITALS: BP 116/80; PULSE 88; O2SAT 98; BMI 36.6
== END 2023-08-13 11:22 | disposition home or self-care (01) ==
LOC: HO.HMGC 10:20
PROVIDERS: PCP Nurse Practitioner Family; Visit Provider Nurse Practitioner Family
DX: E11.9 Type 2 diabetes mellitus without complications (principal)
CPT/HCPCS: 82948; 83036; 99213; G2211

== ENCOUNTER 2023-08-13 11:23 | Outpatient (REF) | payer OTHER, SELFPAY ==
[2023-08-13 13:19] LABS: MANUAL DIFF FLAG NO
[2023-08-13 13:41] LABS: Basophils Percent Auto 0.6 % (0-2); Eosinophils Absolute Auto 0.1 X10*3/uL (0.0-0.4); Eosinophils Percent Auto 0.8 % (0-4); Hematocrit 39.4 % (42.0-52.0); Hemoglobin 13.4 g/dl (14.0-18.0); Imm Gran Abs Auto 0.01 X10*3/uL (0.00-0.03); Imm Gran Pct Auto 0.2 % (0.0-0.4); Lymphocytes Absolute Auto 2.4 X10*3/uL (1.2-4.9); Lymphocytes Percent Auto 38.8 % (20-40); Mean Corpuscular Hemoglobin 31.8 pg (27.0-33.0); Mean Corpuscular Volume 93.6 fL (80.0-98.0); Mean Platelet Volume 13.2 fL (9.4-12.4); Monocytes Absolute Auto 0.5 X10*3/uL (0.1-1.2); Monocytes Percent Auto 7.7 % (2-11); Neutrophils Absolute Auto 3.2 x10*3/uL (2.0-8.3); Neutrophils Percent Auto 51.9 % (45-73); Platelet Count 119 X10*3/uL (160-400); Red Blood Count 4.21 X10*6/uL (4.60-5.80); White Blood Count 6.2 X10*3/uL (4.8-10.8)
[2023-08-13 14:11] LABS: Alanine Aminotransferase 44 U/L (0-40); Albumin Level 4.7 g/dL (3.5-5.0); Alkaline Phosphatase 93 U/L (39-117); Anion Gap 15 (12-20); Aspartate Amino Transferase 38 U/L (5-37); Bilirubin Total 2.9 mg/dL (0.0-1.0); Blood Urea Nitrogen 19 mg/dL (9-16); Carbon Dioxide 23 mmol/L (22-29); Chloride 102 mmol/L (96-108); Cholesterol 161 mg/dL (<200); Estimated Glomerular Filt Rate > 60; Glucose Fasting 360 mg/dL (60-99); HDL Cholesterol 33 mg/dL (>40); LDL Cholesterol Calculated 94 mg/dL (<100); Potassium 4.4 mmol/L (3.3-5.1); Sodium 136 mmol/L (135-145); Total Protein 8.2 g/dL (6.5-8.0); Triglycerides 172 mg/dL (<150)
[2023-08-13 14:16] LABS: TSH reflex Free T4 0.29 uIU/mL (0.32-4.0)
[2023-08-13 15:20] LABS: Free T4 (Free Thyroxine) 1.46 ng/dL (0.71-1.85)
== END 2023-08-13 11:24 | disposition home or self-care (01) ==
LOC: HO.HMGCLDS 11:23
PROVIDERS: PCP Nurse Practitioner Family; Visit Provider Nurse Practitioner Family
DX: E11.9 Type 2 diabetes mellitus without complications (principal)
CPT/HCPCS: 36415; 80053; 80061; 84439; 84443; 85025

== ENCOUNTER 2023-08-18 10:28 | Outpatient (REF) | payer OTHER, SELFPAY ==
[2023-08-18 11:32] LABS: Immature Retic Fraction 24.7 % (2.3-13.4); Retic HGB Equivalent 37.9 pg (30.0-35.0); Reticulocyte Percent 2.2 % (0.5-1.8); Reticulocytes Absolute 0.074 X10*6/uL (0.026-0.095)
[2023-08-18 11:42] LABS: Appearance Urine Clear; Color Urine Yellow; Glucose Urine UA >=1000 mg/dL (Negative); Leukocyte Esterase Urine Negative (Negative); Nitrite Urine Negative (Negative); PH 5.5 (5.0-9.0); Specific Gravity - Urine 1.025 (1.005-1.025); UMIC TRIGGER UACC YES; Urine Blood Negative (Negative); Urine Ketones 15 mg/dL (Negative); Urine Protein Negative (Neg-Trace)
[2023-08-18 11:48] LABS: Bacteria Urine None Seen (None Seen); Hyaline Casts Urine 0-2 /LPF (0-2); RBC Urine 0-2 /HPF (0-2); Squamous Epithelial Cell Urine 0-2 /HPF (0-2); WBC Urine 0-5 /HPF (0-5)
[2023-08-18 12:13] LABS: Bilirubin Direct 0.6 mg/dL (0.0-0.5); Bilirubin Total 6.4 mg/dL (0.0-1.0); Lactate Dehydrogenase 200 U/L (118-273)
[2023-08-18 12:14] LABS: Creatinine Urine 55.76 mg/dL; Microalbum/Creatinine Ratio Ur 10.7 ug/mg cr (<30)
[2023-08-20 07:48] LABS: Haptoglobin 63 mg/dL (43-212)
== END 2023-08-18 10:29 | disposition home or self-care (01) ==
LOC: HO.HMGCLDS 10:28
PROVIDERS: PCP Nurse Practitioner Family; Visit Provider Nurse Practitioner Family
DX: E11.9 Type 2 diabetes mellitus without complications (principal); R17 Unspecified jaundice
CPT/HCPCS: 36415; 81001; 82043; 82247; 82248; 82570; 83010; 83615; 85045

== ENCOUNTER 2023-08-20 10:49 | Emergency (ER) | payer OTHER, SELFPAY ==
--- NOTE | ~2023-08-20 | CT_ITS ---
EXAMINATION: CT ABDOMEN AND PELVIS WITH CONTRAST CLINICAL INFORMATION: Abdominal pain, elevated bilirubin. COMPARISON: Abdominal ultrasound 08/20/2023. CT abdomen/pelvis 12/25/2020. TECHNIQUE: Multidetector volumetric images were obtained from the superior aspect of the liver through the pubic symphysis following administration 100 mL of Omnipaque 350 intravenous contrast. Sagittal and coronal reformatted images were obtained on the technologist's workstation. Oral contrast: No This CT examination was performed using dose optimization techniques as appropriate, variously including the following: *Automated exposure control *Adjustment of mA and/or kV according to patient size (this includes techniques or standardized protocols for targeted exams where dose is matched to indication/reason for exam; i.e. extremities or head) *Use of iterative reconstruction technique DLP: 880.4 mGy-cm FINDINGS: LUNG BASES: No focal consolidation or pleural effusion. LIVER, GALLBLADDER, AND BILIARY TREE: Enlarged liver measuring 20.6 cm craniocaudally with suggestion of a nodular contour as well as increased size of the caudate lobe that could indicate cirrhosis. No discrete focal liver lesion. No calcified gallbladder calculi. No evidence of gallbladder wall thickening or pericholecystic inflammatory changes. No biliary ductal dilatation. PANCREAS: Mildly atrophic. No main ductal dilatation. No peripancreatic inflammatory changes. No discrete focal lesion. SPLEEN: The spleen is enlarged measuring 14.8 cm in AP diameter. ADRENAL GLANDS: Unremarkable. KIDNEYS AND URETERS: Multiple left greater than right nonobstructive renal calculi measuring up to 3 mm. Symmetric nephrograms. No hydronephrosis. No perinephric fat stranding. No solid renal lesion. BLADDER: Unremarkable. GASTROINTESTINAL TRACT: The stomach and the small bowel are nondilated. Normal appendix. Mild colonic diverticulosis without significant pericolonic inflammatory changes. No evidence of bowel obstruction. ABDOMINAL WALL: No significant hernia is appreciated. LYMPH NODES: Unchanged periportal lymphadenopathy. VASCULAR: Normal caliber abdominal aorta. Main portal vein is patent. PELVIC VISCERA: Unremarkable. OSSEOUS STRUCTURES: No acute or aggressive appearing osseous findings. Degenerative changes of the spine. CT/CT abdomen pelvis w IV con IMPRESSION: 1. Hepatomegaly with suggestion of a nodular contour raising the possibility of cirrhosis in the appropriate clinical context. Evaluation of HCC, cholangiocarcinoma and additional liver lesions in the context of cirrhosis and elevated bilirubin is limited due to single postcontrast phase. Consider further evaluation with elective abdominal MRI with and without IV contrast. 2. Enlarged spleen that could indicate some degree of portal hypertension in the context of cirrhosis. 3. Unchanged periportal lymphadenopathy. 4. Nonobstructive bilateral renal calculi. 5. Diverticulosis but no evidence of acute diverticulitis. 6. No acute abdominal or pelvic abnormalities to explain the patient's symptoms.
--- NOTE | ~2023-08-20 | US_ITS ---
EXAMINATION: US ABDOMEN LIMITED CLINICAL INFORMATION: Question of portal vein thrombus. COMPARISON: None available. TECHNIQUE: Real-time imaging of the right upper quadrant abdominal viscera. FINDINGS: PANCREAS: The pancreas appears unremarkable, without masses or ductal dilatation, with the exception of the tail which is obscured by bowel gas. LIVER: The liver is normal in size. The liver contour is normal. There is diffuse increased liver parenchymal echogenicity, consistent with hepatic steatosis. No focal hepatic lesion. There is no intrahepatic biliary duct dilatation seen. The main portal vein is patent with hepatopedal flow GALLBLADDER: The gallbladder is physiologically distended without evidence of stones, sludge, polyps, wall thickening or pericholecystic fluid. COMMON BILE DUCT: Normal in caliber measuring 0.3 cm in diameter. RIGHT KIDNEY: Normal. No hydronephrosis. No renal calculi or focal parenchymal lesions. The kidney measures 11.7 cm in maximum dimension. FREE FLUID: None. US/US abdomen limited IMPRESSION: 1. Hepatic steatosis. 2. The main portal vein is patent with hepatopedal flow.
--- NOTE | 2023-08-20 10:55 | ECG_ITS ---
Test Reason : WEAKNESS Blood Pressure : / mmHG Vent. Rate : 087 BPM Atrial Rate : 087 BPM P-R Int : 152 ms QRS Dur : 098 ms QT Int : 368 ms P-R-T Axes : 012 002 007 degrees QTc Int : 442 ms Normal sinus rhythm Minimal voltage criteria for LVH, may be normal variant ( R in aVL ) Borderline ECG When compared with ECG of 01-OCT-2019 15:31, No significant change was found Referred By: Sandi Smith Electronically Signed By:NALINI MATT MD
--- NOTE | 2023-08-20 11:09 | ED.GENADULT ---
HPI - General Adult General Chief complaint: Recheck/Abnormal Lab/Rx Stated complaint: Jaundice/Joint pain/Fatigue Time Seen by Provider: 08/20/23 18:57 Source: patient Mode of arrival: ambulatory Limitations: no limitations History of Present Illness ED Provider: Chapis Lebron PA-C HPI narrative: Patient is a 47 year old assigned male at with a history of anemia, diabetes, fatty liver disease, and hypothyroidism presenting to the emergency department today with new onset jaundice. Patient states that he noticed a couple of days ago that he looked yellow, he called his PCP, and they recommended he come to the ER immediately. Patient denies any dizziness, lightheadedness, abdominal pain, nausea, vomiting, fever, chills, blurry vision, double vision, loss of vision, chest pain, difficulty breathing, shortness of breath, back pain, night sweats, pain with urination, increased urinary frequency, increased urinary urgency, blood in his urine or stool, syncope or a near syncopal episode, recent trauma or falls, bowel incontinence, bladder incontinence, or any other complaints at this time. Onset (ago): day(s) (2) Location: eyes Severity: mild Severity scale (1-10): 3 Relieving factors: none Exacerbating factors: none Associated symptoms: other (yellowing of eyes and skin) Treatments prior to arrival: none Related Data Home Medications ?Medication ?Instructions ?Recorded ?Confirmed cholecalciferol (vitamin D3) 50 50 mcg PO DAILY 11/29/19 04/11/23 mcg (2,000 unit) tablet Previous Rx's ?Medication ?Instructions ?Recorded alcohol swabs (Alcohol Wipes) 1 pad topical BID #100 ea 12/30/20 blood-glucose meter (FreeStyle #1 ea 12/30/20 Lite Meter kit) flash glucose scanning reader #1 ea 01/05/21 (FreeStyle Nicole 14 Day [place]) flash glucose sensor (FreeStyle #1 ea 01/05/21 Nicole 14 Day Sensor kit) blood sugar diagnostic (FreeStyle #100 ea 02/13/22 Lite Strips) lancets 28 gauge (FreeStyle #200 ea 10/20/22 Lancets) albuterol sulfate 90 mcg/actuation 1 inh inhalation Q4-6H PRN 03/19/23 aerosol inhaler (ProAir HFA) shortness of breath or wheezing #6.7 grams cyclobenzaprine 10 mg tablet 10 mg PO BEDTIME #14 tabs 05/30/23 ibuprofen 600 mg tablet 600 mg PO Q6H PRN pain #30 tabs 05/30/23 lidocaine 5 % topical patch 1 patch topical DAILY #30 ea 05/30/23 bisacodyl 5 mg tablet,delayed 20 mg (4 x 5 mg) PO ONCE 1 day #4 08/07/23 release (Dulcolax (bisacodyl)) tabs polyethylene glycol 3350 17 238 g PO ONCE 1 day #238 grams 08/07/23 gram/dose oral powder (Miralax) empagliflozin 10 mg tablet 10 mg PO DAILY 90 days #90 tabs 08/13/23 (Jardiance) semaglutide 0.25 mg or 0.5 mg (2 0.25 mg (0.368 mL) subcut QWEEK 30 08/13/23 mg/3 mL) subcutaneous pen injector days #1.84 mL (Ozempic) metformin 500 mg tablet,extended 1,000 mg (2 x 500 mg) PO BID #360 08/14/23 release 24 hr tabs atorvastatin 10 mg tablet 10 mg PO DAILY 90 days #90 tabs 08/16/23 levothyroxine 200 mcg capsule 200 mcg PO DAILY #90 caps 08/19/23 Allergies Allergy/AdvReac Type Severity Reaction Status Date / Time No Known Allergies Allergy Verified 08/20/23 11:13 [No Known Allergies*] Review of Systems Constitutional: Constitutional: Reports no additional constitutional complaints, Denies chills, Denies fever(s) and Denies night sweats Eyes: Eyes: Reports no additional eye complaints, Denies blurry vision, Denies change in vision, Denies diplopia, Denies eye discharge, Denies loss of vision and Denies eye pain Comments: jaundice ENT: Denies dizziness Cardiovascular: Cardiovascular: Reports no additional cardiovascular complaints, Denies chest pain, Denies lightheadedness, Denies Loss of Consciousness and Denies dyspnea Respiratory: Respiratory: Reports no additional respiratory complaints and Denies dyspnea Gastrointestinal: Gastrointestinal: Reports no additional gastrointestinal complaints, Denies abdominal pain, Denies melena, Denies hematochezia, Denies change in bowel habits and Denies change in stool character Genitourinary: Genitourinary: Reports no additional male genitourinary complaints, Denies hematuria, Denies oliguria, Denies difficulty urinating, Denies dysuria, Denies urinary frequency, Denies urinary hesitancy, Denies urinary incontinence and Denies urinary urgency Musculoskeletal: Musculoskeletal: Reports no additional musculoskeletal complaints, Denies numbness and Denies tingling Integumentary/Breasts: Comments: jaundice Neurologic: Denies dizziness, Denies loss of vision, Denies numbness and Denies tingling Psychiatric: Psychiatric: Reports no additional psychiatric complaints Endocrine: Endocrine: Reports no additional endocrine complaints Hematologic/Lymphatic: Hematologic/Lymphatic: Reports no additional hematologic/lymphatic complaints Allergic/Immunologic: Allergic/Immunologic: Reports no additional allergic/immunologic complaints PMFSH Past Medical History Attestation statement: The following information was validated with the patient. Source: old records reviewed and nursing notes reviewed Medical History Kidney stones Hypothyroid Surgical History History of total right knee replacement (~09/2019) History of arthroscopy of right knee (~03/29/16) Family History Family History Father Stroke Heart attack Low blood pressure Mother No problems noted. Daughter No problems noted. 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 Cognitive needs: No Hearing needs: No Vision needs: No Physical Exam ED Vital Signs: Vital Signs - 24 hr 08/20/23 11:10 08/20/23 23:03 08/20/23 23:40 Temperature 96.7 F L 97.9 F 97.9 F Pulse Rate 99 77 77 Respiratory Rate 20 17 17 Blood Pressure 150/102 H 135/83 135/83 Pulse Oximetry 98 98 98 Oxygen Delivery Method Room Air Room Air Room Air BMI result Body Mass Index 36.3 Const General: cooperative, no acute distress, alert and awake Nutritional Appearance: well nourished Orientation/consciousness: patient oriented x3 Limitations: no limitations HENMT Head: Yes normal to inspection and Yes atraumatic Ears: hearing grossly normal bilaterally and external ears normal General nose exam: Normal external nose present, no nasal discharge noted and no epistaxis Face and sinus: Yes normal facial exam, No abrasion and No laceration Mouth: Normal oral and palatal mucosa present, no drooling and no muffled voice Eyes Periorbital: periorbital findings normal Eyelids: Yes eyelids normal Conjunctivae: conjunctival abnormal bilateral conjunctival icterus Pupils: Equal, round and reactive pupils present EOM: EOMs intact bilaterally Neck Neck: Yes normal visual inspection, Yes full ROM and Yes no lymphadenopathy Chest Chest palpation & inspection: normal inspection of the chest Resp Effort & Inspection: normal respiratory effort and able to speak in complete sentences GI Inspection: Yes normal to inspection Skin General skin exam: jaundice Neuro General: patient oriented x3 and moves all extremities Cranial nerves: Yes Equal, round and reactive pupils present Cognition (Neuro): normal cognition Motor exam (neuro): 5/5 motor strength present throughout Sensory Exam: Normal double simultaneous stimulation for sensation Coordination: [id number] test normal Extrem General: Yes normal to inspection, Yes full ROM and Yes capillary refill normal Psych Appearance: grossly normal Mental Status: mental status grossly normal Affect: normal affect Attitude: cooperative Thought process: Normal thought process present Thought content: Normal thought content present Insight: Good insight present (Psych) Course Course Course Narrative: This is a Rapid Medical Exam performed in triage by Kesha Angel PA-C. Full HPI, ROS and PE to be performed by primary ED provider. 47 year-old w/M PMHx presenting to the ED c/o abnormal outpatient labs and jaundice noted last week. Also reports fatigue, nausea, & dry mouth. denies abd pain or ETOH use T bili 6.4 on labs from 08/18/23 PE: + jaundice with scleral icterus. Abdomen soft and nontender Plan: Labs and US ordered Medications Administered Discontinued Medications Generic Name Dose Route Start Last Admin Trade Name Freq PRN Reason Stop Dose Admin Iohexol 100 ml 08/20/23 20:19 08/20/23 20:22 Iohexol 350 Mg/Ml 100 Ml Infus..Btl IV 08/20/23 20:20 100 ml ONCE ONE Administration Medical Decision Making Medical Decision Making [facility] Narrative: Patient is a 47 year old assigned male at with a history of anemia, diabetes, fatty liver disease, and hypothyroidism presenting to the emergency department today with new onset jaundice. Patient's physical exam was as noted in the physical exam portion of this note. Patient's blood work showed a total bilirubin of 5.3, AST of 53, ALT of 46, and an alk phos of 46. Patient's urine from 08/18/2023, showed no acute process. Patient's EKG was unremarkable. Patient's abdominal US showed no acute process. Patient's abdominal CT scan showed hepatomegaly with nodular contour raising the possibility of cirrhosis. I spoke to Dr. Rios, the GI socialist vice president of instruction, who recommended outpatient follow up. I explained my physical exam findings as well as all test results to the patient. I answered all questions asked by the patient. I stressed the importance of the patient taking his medication as prescribed. I stressed the importance of the patient following up with his primary care provider and a GI specialist. I stressed the importance of the patient returning to the emergency department immediately if his symptoms were to worsen or if he were to develop any dizziness, shortness of breath, difficulty breathing, chest pain, blurry vision, loss of vision, nausea, vomiting, abdominal pain, fever, chills, back pain, or any other complaints. Patient verbalized agreement and understanding with this treatment plan and discharge. Differential Diagnosis Differential Diagnoses: The differential diagnosis associated with the presentation includes Cirrhosis Jaundice Elevated bilirubin Admission/Observation Consideration of admission/observation: Escalation of care including admission/observation considered Patient would have been admitted to the hospital had his work up had any findings where hospital admission was appropriate and his clinical presentation warranted hospital admission. Consult Healthcare Provider Management of the patient was discussed with: Mission Manager (spoke to the GI specialist as noted in the MDM Rationale portion of this note) Lab Data [facility] Lab Attestation statement: I reviewed the patient's lab results. My interpretation of these results are in the MDM Rationale portion of this note. 08/20/23 12:19 08/20/23 12:19 Labs: Lab Results 08/20/23 08/20/23 Range/Units 12:19 12:24 WBC 6.1 (4.8-10.8) X10*3/uL RBC 3.51 L (4.60-5.80) X10*6/uL Hgb 11.7 L (14.0-18.0) g/dl Hct 33.5 L (42.0-52.0) % MCV 95.4 (80.0-98.0) fL MCH 33.3 H (27.0-33.0) pg MCHC 34.9 (31.0-36.0) g/dl RDW 12.5 (11.0-16.0) % Plt Count 111 L (160-400) X10*3/uL MPV 13.0 H (9.4-12.4) fL Immature Gran % (Auto) 1.3 H (0.0-0.4) % Neut % (Auto) 51.8 (45-73) % Lymph % (Auto) 37.7 (20-40) % [place] % (Auto) 7.7 (2-11) % Eos % (Auto) 0.8 (0-4) % Baso % (Auto) 0.7 (0-2) % Lymph # (Auto) 2.3 (1.2-4.9) X10*3/uL [place] # (Auto) 0.5 (0.1-1.2) X10*3/uL Eos # (Auto) 0.1 (0.0-0.4) X10*3/uL Baso # (Auto) 0.0 (0.0-0.2) X10*3/uL Abs Immat Gran (auto) 0.08 H (0.00-0.03) X10*3/uL Absolute Neuts (auto) 3.2 (2.0-8.3) x10*3/uL Absolute Nucleated RBC 0.000 (0.0-0.012) X10*3/uL Nucleated RBC % (auto) 0.0 (0.0-0.2) /100WBC PT 12.8 (11.1-13.3) SEC INR 1.1 (0.9-1.1) VBG pH 7.37 (7.32-7.43) VBG pCO2 43 mmHg VBG pO2 33 mmHg VBG HCO3 25 (22-26) mmol/L VBG O2 Saturation 46.0 % VBG Base Excess 0.1 mmol/L Sodium 139 (135-145) mmol/L Potassium 4.7 (3.3-5.1) mmol/L Chloride 107 (96-108) mmol/L Carbon Dioxide 23 (22-29) mmol/L Anion Gap 14 (12-20) BUN 19 H (9-16) mg/dL Creatinine 0.79 (0.5-1.4) mg/dL Estim Creat Clear Calc 173.6 Estimated GFR > 60 Random Glucose 138 H (60-115) mg/dL Calcium 9.7 (8.4-10.2) mg/dL Magnesium 1.8 (1.6-2.6) mg/dL Total Bilirubin 5.3 H (0.0-1.0) mg/dL Direct Bilirubin 0.5 (0.0-0.5) mg/dL AST 53 H (5-37) U/L ALT 46 H (0-40) U/L Alkaline Phosphatase 81 (39-117) U/L Ammonia 27 (13-55) umol/L Total Creatine Kinase 278 H (38-174) U/L Total Protein 7.7 (6.5-8.0) g/dL Albumin 4.4 (3.5-5.0) g/dL Lipase 37 (8-78) U/L TSH 0.12 L (0.32-4.0) uIU/mL Free T4 1.25 (0.71-1.85) ng/dL Ethyl Alcohol < 10 mg/dL Independent Interpretation I performed an independent interpretation of an: EKG and CT Scan Interpretation: My interpretation is in agreement with the radiologist's impression of these imaging studies. EXAMINATION: US ABDOMEN LIMITED CLINICAL INFORMATION: Question of portal vein thrombus. COMPARISON: None available. TECHNIQUE: Real-time imaging of the right upper quadrant abdominal viscera. FINDINGS: PANCREAS: The pancreas appears unremarkable, without masses or ductal dilatation, with the exception of the tail which is obscured by bowel gas. LIVER: The liver is normal in size. The liver contour is normal. There is diffuse increased liver parenchymal echogenicity, consistent with hepatic steatosis. No focal hepatic lesion. There is no intrahepatic biliary duct dilatation seen. The main portal vein is patent with hepatopedal flow GALLBLADDER: The gallbladder is physiologically distended without evidence of stones, sludge, polyps, wall thickening or pericholecystic fluid. COMMON BILE DUCT: Normal in caliber measuring 0.3 cm in diameter. RIGHT KIDNEY: Normal. No hydronephrosis. No renal calculi or focal parenchymal lesions. The kidney measures 11.7 cm in maximum dimension. FREE FLUID: None. US/US abdomen limited IMPRESSION: 1. Hepatic steatosis. 2. The main portal vein is patent with hepatopedal flow. Dictated By: Imtiaz Starkey MD Signed By: Electronically signed by Imtiaz Starkey MD 08/20/23 1322 EXAMINATION: CT ABDOMEN AND PELVIS WITH CONTRAST CLINICAL INFORMATION: Abdominal pain, elevated bilirubin. COMPARISON: Abdominal ultrasound 08/20/2023. CT abdomen/pelvis 12/25/2020. TECHNIQUE: Multidetector volumetric images were obtained from the superior aspect of the liver through the pubic symphysis following administration 100 mL of Omnipaque 350 intravenous contrast. Sagittal and coronal reformatted images were obtained on the technologist's workstation. Oral contrast: No This CT examination was performed using dose optimization techniques as appropriate, variously including the following: *Automated exposure control *Adjustment of mA and/or kV according to patient size (this includes techniques or standardized protocols for targeted exams where dose is matched to indication/reason for exam; i.e. extremities or head) *Use of iterative reconstruction technique DLP: 880.4 mGy-cm FINDINGS: LUNG BASES: No focal consolidation or pleural effusion. LIVER, GALLBLADDER, AND BILIARY TREE: Enlarged liver measuring 20.6 cm craniocaudally with suggestion of a nodular contour as well as increased size of the caudate lobe that could indicate cirrhosis. No discrete focal liver lesion. No calcified gallbladder calculi. No evidence of gallbladder wall thickening or pericholecystic inflammatory changes. No biliary ductal dilatation. PANCREAS: Mildly atrophic. No main ductal dilatation. No peripancreatic inflammatory changes. No discrete focal lesion. SPLEEN: The spleen is enlarged measuring 14.8 cm in AP diameter. ADRENAL GLANDS: Unremarkable. KIDNEYS AND URETERS: Multiple left greater than right nonobstructive renal calculi measuring up to 3 mm. Symmetric nephrograms. No hydronephrosis. No perinephric fat stranding. No solid renal lesion. BLADDER: Unremarkable. GASTROINTESTINAL TRACT: The stomach and the small bowel are nondilated. Normal appendix. Mild colonic diverticulosis without significant pericolonic inflammatory changes. No evidence of bowel obstruction. ABDOMINAL WALL: No significant hernia is appreciated. LYMPH NODES: Unchanged periportal lymphadenopathy. VASCULAR: Normal caliber abdominal aorta. Main portal vein is patent. PELVIC VISCERA: Unremarkable. OSSEOUS STRUCTURES: No acute or aggressive appearing osseous findings. Degenerative changes of the spine. CT/CT abdomen pelvis w IV con IMPRESSION: 1. Hepatomegaly with suggestion of a nodular contour raising the possibility of cirrhosis in the appropriate clinical context. Evaluation of HCC, cholangiocarcinoma and additional liver lesions in the context of cirrhosis and elevated bilirubin is limited due to single postcontrast phase. Consider further evaluation with elective abdominal MRI with and without IV contrast. 2. Enlarged spleen that could indicate some degree of portal hypertension in the context of cirrhosis. 3. Unchanged periportal lymphadenopathy. 4. Nonobstructive bilateral renal calculi. 5. Diverticulosis but no evidence of acute diverticulitis. 6. No acute abdominal or pelvic abnormalities to explain the patient's symptoms. Dictated By: Shara Shoemaker Signed By: Electronically signed by Shara Shoemaker 08/20/23 0455 Vent. Rate: 087 BPM Atrial Rate: 087 BPM P-R Int: 152 ms QRS Dur: 098 ms QT Int: 368 ms P-R-T Axes: 012 002 007 degrees QTc Int: 442 ms Normal sinus rhythm Minimal voltage criteria for LVH, may be normal variant (R in aVL) Borderline ECG When compared with ECG of 01-OCT-2019 15:31, No significant change was found DD/ 1206 Radiology Impression Discussion of test interpretation with radiology: I have reviewed the radiologist's reading. Critical Care Time Critical Care Time Critical Care Time: Yes Total Critical Care Time: 34 Attestation: I spent 34 minutes of Critical Care Time with this patient. This does not include time spent on separately reported billable procedures. Discharge Plan Discharge Clinical Impression: Cirrhosis, Jaundice Patient Disposition: Home, Self-Care Instructions: Cirrhosis (ED), Jaundice (ED) Additional Instructions: Follow up with your primary care provider and a GI specialist. Return to the emergency department immediately if your symptoms worsen or if you develop any dizziness, shortness of breath, difficulty breathing, chest pain, blurry vision, loss of vision, nausea, vomiting, abdominal pain, fever, chills, back pain, or any other complaints. Prescriptions: No Action (DME) blood-glucose meter [FreeStyle Lite Meter] Kit See Rx Instructions .Route Qty: 1 0RF Rx Instructions: Use to check blood sugar twice a day: fasting and a random alcohol swabs [Alcohol Wipes] Pads, Medicated 1 pad topical BID Qty: 100 0RF Rx Instructions: Use to cleanse finger tip prior to testing blood sugar twice a day: fasting and a random sugar (DME) FreeStyle Lite Strips Strip See Rx Instructions .Route Qty: 100 2RF Rx Instructions: Use to check blood sugar twice a day: fasting and a random (DME) lancets [FreeStyle Lancets] 28 gauge misc See Rx Instructions .Route Qty: 200 1RF Rx Instructions: Use to check blood sugar twice a day: fasting and a random bisacodyl [Dulcolax (bisacodyl)] 5 mg tablet,delayed release (DR/EC) 20 mg PO ONCE 1 Days Qty: 4 0RF Rx Instructions: take at noon the day before colonoscopy polyethylene glycol 3350 [Miralax] 17 gram/dose powder 238 g PO ONCE 1 Days Qty: 238 0RF Rx Instructions: Take as directed by mouth the day before your procedure. metformin 500 mg tablet extended release 24 hr 1,000 mg PO BID Qty: 360 1RF atorvastatin 10 mg tablet 10 mg PO DAILY 90 Days Qty: 90 1RF levothyroxine 200 mcg capsule 200 mcg PO DAILY Qty: 90 0RF Rx Instructions: to be taken with 13mcg dose albuterol sulfate [ProAir HFA] 90 mcg/actuation HFA aerosol inhaler 1 inh inhalation Q4-6H PRN (Reason: shortness of breath or wheezing) Qty: 6.7 0RF ibuprofen 600 mg tablet 600 mg PO Q6H PRN (Reason: pain) Qty: 30 0RF lidocaine 5 % adhesive patch,medicated 1 patch topical DAILY Qty: 30 0RF Rx Instructions: leave on most painful area for up to 12 hrs cyclobenzaprine 10 mg tablet 10 mg PO BEDTIME Qty: 14 0RF Jardiance 10 mg tablet 10 mg PO DAILY 90 Days Qty: 90 0RF Ozempic 0.25 mg or 0.5 mg (2 mg/3 mL) pen injector 0.25 mg subcut QWEEK 30 Days Qty: 1.84 0RF Rx Instructions: for 4 weeks (DME) FreeStyle Nicole 14 Day [place] Misc See Rx Instructions .Route Qty: 1 5RF Rx Instructions: tid (DME) FreeStyle Nicole 14 Day Sensor Kit See Rx Instructions .Route Qty: 1 7RF Rx Instructions: tid testing cholecalciferol (vitamin D3) 50 mcg (2,000 unit) tablet 50 mcg PO DAILY Referrals: [facility] [Provider Group] (Call to establish and follow up with a GI specialist for your abnormal LFTs + CT scan concerning for cirrhosis. ) Gonsalo Jean Baptiste, [facility] [Primary Care Provider] - Stand Alone Forms: Work/School Release Interventions: ED Discharge Assessment Last Done: 08/20/23 23:40 Print Language: Erit[place]
[2023-08-20 11:10] VITALS: BP 150/102; PULSE 99; RESP 20; TEMP 35.9; O2SAT 98; BMI 36.3
[2023-08-20 12:25] LABS: MANUAL DIFF FLAG NO
[2023-08-20 12:28] LABS: Basophils Percent Auto 0.7 % (0-2); Eosinophils Absolute Auto 0.1 X10*3/uL (0.0-0.4); Eosinophils Percent Auto 0.8 % (0-4); Hematocrit 33.5 % (42.0-52.0); Hemoglobin 11.7 g/dl (14.0-18.0); Imm Gran Abs Auto 0.08 X10*3/uL (0.00-0.03); Imm Gran Pct Auto 1.3 % (0.0-0.4); Lymphocytes Absolute Auto 2.3 X10*3/uL (1.2-4.9); Lymphocytes Percent Auto 37.7 % (20-40); Mean Corpuscular HGB Conc 34.9 g/dl (31.0-36.0); Mean Corpuscular Hemoglobin 33.3 pg (27.0-33.0); Mean Corpuscular Volume 95.4 fL (80.0-98.0); Monocytes Absolute Auto 0.5 X10*3/uL (0.1-1.2); Monocytes Percent Auto 7.7 % (2-11); Neutrophils Absolute Auto 3.2 x10*3/uL (2.0-8.3); Neutrophils Percent Auto 51.8 % (45-73); Platelet Count 111 X10*3/uL (160-400); Red Blood Count 3.51 X10*6/uL (4.60-5.80); Red Cell Distribution Width 12.5 % (11.0-16.0); White Blood Count 6.1 X10*3/uL (4.8-10.8)
[2023-08-20 12:31] LABS: Venous Blood Gas Refer to POC result
[2023-08-20 12:31] LABS: VBG Base Excess 0.1 mmol/L; VBG HCO3 25 mmol/L (22-26); VBG pCO2 43 mmHg; VBG pH 7.37 (7.32-7.43); VBG pO2 33 mmHg
[2023-08-20 12:33] LABS: Ammonia 27 umol/L (13-55); INTERNATIONAL NORM RATIO 1.1 (0.9-1.1); Prothrombin Time 12.8 SEC (11.1-13.3)
[2023-08-20 12:54] LABS: Alanine Aminotransferase 46 U/L (0-40); Albumin Level 4.4 g/dL (3.5-5.0); Alkaline Phosphatase 81 U/L (39-117); Anion Gap 14 (12-20); Aspartate Amino Transferase 53 U/L (5-37); Bilirubin Direct 0.5 mg/dL (0.0-0.5); Bilirubin Total 5.3 mg/dL (0.0-1.0); Blood Urea Nitrogen 19 mg/dL (9-16); Calcium 9.7 mg/dL (8.4-10.2); Carbon Dioxide 23 mmol/L (22-29); Chloride 107 mmol/L (96-108); Creatinine Clr Calc Pharmacy 173.6; Estimated Glomerular Filt Rate > 60; Ethanol < 10 mg/dL; Glucose Random 138 mg/dL (60-115); Lipase 37 U/L (8-78); Magnesium 1.8 mg/dL (1.6-2.6); Potassium 4.7 mmol/L (3.3-5.1); Sodium 139 mmol/L (135-145); Total Protein 7.7 g/dL (6.5-8.0)
[2023-08-20 13:05] LABS: TSH reflex Free T4 0.12 uIU/mL (0.32-4.0)
[2023-08-20 15:46] LABS: Free T4 (Free Thyroxine) 1.25 ng/dL (0.71-1.85)
[2023-08-20] MEDS: iohexoL 350 MG/ML 100 ML INFUS..BTL IV (20:22)
[2023-08-20 23:03] VITALS: BP 135/83; PULSE 77; RESP 17; TEMP 36.6; O2SAT 98
--- NOTE | 2023-08-20 23:04 | PC.NURSE ---
this rn assumed care of pt, pt resting in stretcher, no acute distress noted. vss.
[2023-08-20 23:40] VITALS: BP 135/83; PULSE 77; RESP 17; TEMP 36.6; O2SAT 98
== END 2023-08-20 23:40 | disposition home or self-care (01) ==
PROVIDERS: Emergency Medicine; Emergency Provider Internal Medicine; PCP Nurse Practitioner Family
DX: K74.60 Unspecified cirrhosis of liver (principal); R79.89 Other specified abnormal findings of blood chemistry; R53.83 Other fatigue; R11.0 Nausea; R10.9 Unspecified abdominal pain; R94.31 Abnormal electrocardiogram [ECG] [EKG]; Z79.899 Other long term (current) drug therapy
CPT/HCPCS: 36415; 74177; 76705; 80048; 80076; 80307; 82140; 82550; 82803; 83690; 83735; 84439; 84443; 85025; 85610; 93005; 99284; Q9967

== ENCOUNTER → 2023-08-20 10:55 | Outpatient (BNV) | payer OTHER, SELFPAY | PROVIDERS: Emergency Provider Internal Medicine; PCP Nurse Practitioner Family; Visit Provider Internal Medicine Cardiovascular Disease | DX: R53.1 Weakness (principal) | CPT/HCPCS: 93010 ==

== ENCOUNTER 2023-08-23 11:26 | Outpatient (AMB) | payer OTHER, SELFPAY ==
[2023-08-23 11:28] VITALS: BP 118/80; PULSE 97; O2SAT 96; BMI 36.1
--- NOTE | 2023-08-23 11:28 | MHC.PC.OV ---
Vital Signs 08/23/23 11:28 Height 6 ft 4 in Weight 297 lb BMI 36.1 BP 118/80 Blood Pressure Location Lt brachial Position Sitting Pulse 97 Pulse Source Pulse Oximeter Pulse Oximetry (%) 96 Oxygen Delivery Method Room Air [place] [facility] [place], elevated blood sugar Intake Note: pt here for ER f/u for elevated glucose and cirrhosis Allergies No Known Allergies [No Known Allergies*] Allergy (Verified 08/23/23 11:34) Medication List - Last Reconciled 08/23/23 by CARSON Fofana albuterol sulfate 90 mcg/actuation (ProAir HFA) 1 inh inhalation Q4-6H PRN alcohol swabs (Alcohol Wipes) 1 pad topical BID atorvastatin 10 mg PO DAILY 90 days bisacodyl (Dulcolax (bisacodyl)) 20 mg (4 x 5 mg) PO ONCE 1 day blood sugar diagnostic (FreeStyle Lite Strips) Use to check blood sugar twice a day: fasting and a random blood-glucose meter (FreeStyle Lite Meter kit) Use to check blood sugar twice a day: fasting and a random cholecalciferol (vitamin D3) 50 mcg PO DAILY cyclobenzaprine 10 mg PO BEDTIME empagliflozin (Jardiance) 10 mg PO DAILY 90 days flash glucose scanning reader (FreeStyle Nicole 14 Day Quinton) tid flash glucose sensor (FreeStyle Nicole 14 Day Sensor kit) tid testing ibuprofen 600 mg PO Q6H PRN lancets (FreeStyle Lancets) Use to check blood sugar twice a day: fasting and a random levothyroxine 200 mcg PO DAILY lidocaine 5% 1 patch topical DAILY metformin ER 1,000 mg (2 x 500 mg) PO BID polyethylene glycol 3350 (Miralax) 238 grams PO ONCE 1 day sitagliptin phosphate (Januvia) 25 mg PO DAILY Tobacco use date assessed: 08/13/23 Dental Screening Dental Screen Date: 08/13/23 Did you have a dental visit in the last 12 months?: Yes Did you have a dental problem in the last 6 months where you did not have access to dental care?: No Was dental information given to patient?: Patient has dentist HPI HPI Comments History of Present Illness Details Patient is a 47-year-old male in today for hospital discharge follow-up. Patient was recently in the emergency room for jaundice of skin and sclera icterus. Patient had labs drawn which demonstrated elevated bilirubin at 5.3, as well as elevated AST an ALT at 53 and 46 respectively. Patient was given abdominal ultrasound as well as CT scan which demonstrated possible cirrhosis of the liver with need for further workup and evaluation. GI specialist on-call recommended outpatient follow-up, will send referral stat. Patient denies abdominal pain, diarrhea, vomiting, nausea, constipation, chest pain, shortness a breath, numbness or tingling. Patient presents today with slight jaundice skin and scleral icterus. On review of labs patient's A1c 2 weeks prior was 11.0. Patient had Ozempic ordered however was declined by insurance. He is currently utilizing 1000 mg p.o. b.i.d. of metformin as well as 10 mg Jardiance. Patient will be started on Januvia 25 mg p.o. daily today. He does not want to start insulin at this time. He reports checking blood sugars 3-4 times per day. Patient is up-to-date with his eye exam he had 2 weeks prior to this appointment. States that he is still experiencing intermittent vision blurriness and headache. He has been instructed to follow-up with his eye care provider, has been educated on the importance of bringing his sugar levels down to normal. Patient is also found to be slightly anemic with previous blood draws. Will start patient on 05/19 ferrous fumarate. He has been educated on side effects of this medication how to take it properly. Patient will redraw labs today including CBC, CMP, as well as ammonia levels. He has been educated to refrain from nephrotoxic medications as well as alcohol consumption. [facility] Medical History (Updated 08/23/23 @ 12:23 by CARSON Fofana) Kidney stones Hypothyroid Surgical History History of total right knee replacement (~09/2019) History of arthroscopy of right knee (~03/29/16) Family History Father Stroke Heart attack Low blood pressure Mother No problems noted. Daughter No problems noted. 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 Domingo Estrada, Kayleigh Menjivar, Andrea Stevens and colleagues, with an educational salinas from [employer]. Review of Systems Const All systems reviewed & are unremarkable except as noted in HPI and below Physical exam (Primary Care) Vital Signs: Last Vital Signs Pulse 97 08/23/23 11:28 BP 118/80 08/23/23 11:28 Pulse Ox 96 08/23/23 11:28 Oxygen Delivery Method Room Air 08/23/23 11:28 BMI result Body Mass Index 36.1 Tobacco/Smoking Status: Tobacco use Status Tobacco use date assessed 08/13/23 08/23/23 11:28 Patient Tobacco Use Status Never used Tobacco 08/23/23 11:28 e-Cigarette/Vaping Use Never Used 08/23/23 11:28 Thrive Assessment: Date of Thrive Assessment Date Thrive assessed 08/13/23 08/23/23 11:28 Const Other: Appearance: Alert.? Oriented X3.? No acute distress.? Head: Normocephalic, atraumatic, no step-offs or deformities Eyes: Pupils equal, round and reactive to light.?+scleral icterus, bilaterally. CVS: Normal heart rate and rhythm.? Pulses normal.? Respiratory: No respiratory distress.? Breath sounds normal.? Abdomen: Soft and nontender.? Skin: Scant jaundice. Neuro: Oriented X 3.? No motor deficit.? No sensory deficit. CN 2-12 intact Results Reviewed Results Reviewed: WBC 6.1 4.8-10.8 X10*3/uL RBC 3.51 L 4.60-5.80 X10*6/uL HGB 11.7 L 14.0-18.0 g/dl HCT 33.5 L 42.0-52.0 % MCV 95.4 80.0-98.0 fL MCH 33.3 H 27.0-33.0 pg MCHC 34.9 31.0-36.0 g/dl RDW 12.5 11.0-16.0 % PLT 111 L 160-400 X10*3/uL MPV 13.0 H 9.4-12.4 fL Neut Pct Auto 51.8 45-73 % ImGran Pct Auto 1.3 H 0.0-0.4 % Lymp Pct Auto 37.7 20-40 % Montague Pct Auto 7.7 2-11 % Eos Pct Auto 0.8 0-4 % Baso Pct Auto 0.7 0-2 % NRBC Pct Auto 0.0 0.0-0.2 /100WBC ANC Neut Abs # 3.2 2.0-8.3 x10*3/uL ImGran Abs Auto 0.08 H 0.00-0.03 X10*3/uL Lymph Abs Auto 2.3 1.2-4.9 X10*3/uL Montague Abs Auto 0.5 0.1-1.2 X10*3/uL Eos Abs Auto 0.1 0.0-0.4 X10*3/uL Baso Abs Auto 0.0 0.0-0.2 X10*3/uL NRBC Abs Auto 0.000 0.0-0.012 X10*3/uL Assessment and Plan Assessment & Plan (1) Elevated liver enzymes: Comment: Patient will have CMP redrawn. Will get referral to Gastroenterology stat Code(s): R74.8 - Abnormal levels of other serum enzymes (2) Cirrhosis: Comment: Question of cirrhosis based on CT scan. Patient will get GI Gastroenterology refer Code(s): K74.60 - Unspecified cirrhosis of liver Qualifiers: Hepatic cirrhosis type: unspecified hepatic cirrhosis Ascites presence: unspecified Qualified Code(s): K74.60 - Unspecified cirrhosis of liver (3) DM (diabetes mellitus), type 2 with ophthalmic complications: Comment: Patient diabetic type 2. Currently uncontrolled though he is starting to work on his diet. He is not checking blood sugars 3-4 times per day, utilizing metformin, Jardiance, Januvia. Patient has been educated that it would be beneficial to start insulin he has declined. Patient to follow-up immediately with eye care provider. He has been educated on signs of worsening symptoms when to return to the office or when to present to the ED Code(s): E11.39 - Type 2 diabetes mellitus with other diabetic ophthalmic complication Qualifiers: Diabetes mellitus [facility] insulin use: without terminal supervisor use Diabetes mellitus complication detail: with other ophthalmic complication Qualified Code(s): E11.39 - Type 2 diabetes mellitus with other diabetic ophthalmic complication (4) Hospital discharge follow-up: Comment: Patient is a 47-year-old male in today for hospital discharge follow-up. Patient was recently in the emergency room for jaundice of skin and sclera icterus. Patient had labs drawn which demonstrated elevated bilirubin at 5.3, as well as elevated AST an ALT at 53 and 46 respectively. Patient was given abdominal ultrasound as well as CT scan which demonstrated possible cirrhosis of the liver with need for further workup and evaluation. GI specialist on-call recommended outpatient follow-up, will send referral stat. Patient denies abdominal pain, diarrhea, vomiting, nausea, constipation, chest pain, shortness a breath, numbness or tingling. Patient presents today with slight jaundice skin and scleral icterus. On review of labs patient's A1c 2 weeks prior was 11.0. Patient had Ozempic ordered however was declined by insurance. He is currently utilizing 1000 mg p.o. b.i.d. of metformin as well as 10 mg Jardiance. Patient will be started on Januvia 25 mg p.o. daily today. He does not want to start insulin at this time. He reports checking blood sugars 3-4 times per day. Patient is up-to-date with his eye exam he had 2 weeks prior to this appointment. States that he is still experiencing intermittent vision blurriness and headache. He has been instructed to follow-up with his eye care provider, has been educated on the importance of bringing his sugar levels down to normal. Patient is also found to be slightly anemic with previous blood draws. Will start patient on 05/19 ferrous fumarate. He has been educated on side effects of this medication how to take it properly. Patient will redraw labs today including CBC, CMP, as well as ammonia levels. He has been educated to refrain from nephrotoxic medications as well as alcohol consumption. Code(s): Z09 - Encounter for follow-up examination after completed treatment for conditions other than malignant neoplasm Plan: Draw labs. Orders: Orders Ammonia Today R74.8 - Abnormal levels of other serum enzymes Complete Blood Count Auto Diff Today Z91.89 - Other specified personal risk factors, not elsewhere classified Comprehensive Met. Panel Today Z91.89 - Other specified personal risk factors, not elsewhere classified Referrals Gastroenterology Referral K74.60 - Unspecified cirrhosis of liver Ophthalmology Referral E11.39 - Type 2 diabetes mellitus with other diabetic ophthalmic complication Medications: New sitagliptin phosphate (Januvia) 25 mg PO DAILY 30 tabs 0RF cholecalciferol (vitamin D3) 50 mcg PO DAILY 60 tabs 0RF ferrous fumarate 324 mg PO DAILY 90 tabs 0RF sennosides (senna) 8.6 mg PO DAILY PRN 60 caps 0RF constipation Discontinued semaglutide (Ozempic) for 4 weeks Discontinued Reason: Insurance Denied 0.25 mg (0.368 mL) subcut QWEEK 30 days 1.84 mL 0RF Coding Level of Care Code Est Pt Level 4 (87791) Diagnoses Elevated liver enzymes R74.8 Hepatic cirrhosis, unspecified hepatic cirrhosis type, unspecified whether ascites present K74.60 Hepatic cirrhosis type: unspecified hepatic cirrhosis Ascites presence: unspecified Type 2 diabetes mellitus with other ophthalmic complication, without long-term current use of insulin E11.39 Diabetes mellitus [facility] insulin use: without [facility] use Diabetes mellitus complication detail: with other ophthalmic complication Hospital discharge follow-up Z09 Time Spent (min) 41
== END 2023-08-23 12:52 | disposition home or self-care (01) ==
LOC: HO.HMGC 11:26
PROVIDERS: PCP Nurse Practitioner Family; Visit Provider Nurse Practitioner Primary Care
DX: R74.8 Abnormal levels of other serum enzymes (principal); K74.60 Unspecified cirrhosis of liver; E11.39 Type 2 diabetes mellitus with other diabetic ophthalmic complication; Z09 Encounter for follow-up examination after completed treatment for conditions other than malignant neoplasm
CPT/HCPCS: 99214

== ENCOUNTER 2023-08-23 12:03 | Outpatient (REF) | payer OTHER, SELFPAY ==
[2023-08-23 12:36] LABS: MANUAL DIFF FLAG NO
[2023-08-23 12:38] LABS: Basophils Percent Auto 0.4 % (0-2); Eosinophils Absolute Auto 0.1 X10*3/uL (0.0-0.4); Eosinophils Percent Auto 1.2 % (0-4); Hematocrit 33.2 % (42.0-52.0); Hemoglobin 11.5 g/dl (14.0-18.0); Imm Gran Abs Auto 0.05 X10*3/uL (0.00-0.03); Imm Gran Pct Auto 0.7 % (0.0-0.4); Lymphocytes Absolute Auto 2.5 X10*3/uL (1.2-4.9); Lymphocytes Percent Auto 36.9 % (20-40); Mean Corpuscular HGB Conc 34.6 g/dl (31.0-36.0); Mean Corpuscular Hemoglobin 33.4 pg (27.0-33.0); Mean Corpuscular Volume 96.5 fL (80.0-98.0); Mean Platelet Volume 12.2 fL (9.4-12.4); Monocytes Absolute Auto 0.5 X10*3/uL (0.1-1.2); Monocytes Percent Auto 7.6 % (2-11); Neutrophils Absolute Auto 3.6 x10*3/uL (2.0-8.3); Neutrophils Percent Auto 53.2 % (45-73); Platelet Count 131 X10*3/uL (160-400); Red Blood Count 3.44 X10*6/uL (4.60-5.80); Red Cell Distribution Width 13.5 % (11.0-16.0); White Blood Count 6.7 X10*3/uL (4.8-10.8)
[2023-08-23 12:44] LABS: Ammonia 32 umol/L (13-55)
[2023-08-23 12:53] LABS: Alanine Aminotransferase 44 U/L (0-40); Albumin Level 4.6 g/dL (3.5-5.0); Alkaline Phosphatase 82 U/L (39-117); Anion Gap 16 (12-20); Aspartate Amino Transferase 41 U/L (5-37); Bilirubin Total 3.6 mg/dL (0.0-1.0); Blood Urea Nitrogen 23 mg/dL (9-16); Carbon Dioxide 23 mmol/L (22-29); Chloride 108 mmol/L (96-108); Estimated Glomerular Filt Rate > 60; Glucose Random 148 mg/dL (60-115); Potassium 4.8 mmol/L (3.3-5.1); Sodium 142 mmol/L (135-145); Total Protein 7.7 g/dL (6.5-8.0)
== END 2023-08-23 12:04 | disposition home or self-care (01) ==
LOC: HO.HMGCLDS 12:03
PROVIDERS: PCP Nurse Practitioner Family; Visit Provider Nurse Practitioner Primary Care
DX: R74.8 Abnormal levels of other serum enzymes (principal); Z91.89 Other specified personal risk factors, not elsewhere classified
CPT/HCPCS: 36415; 80053; 82140; 85025

== ENCOUNTER 2023-09-05 07:05 | Outpatient (AMB) | payer OTHER, SELFPAY ==
--- NOTE | 2023-09-05 07:44 | MHC.PC.OV ---
Intake Visit Reasons: FMLA paperwork Allergies No Known Allergies [No Known Allergies*] Allergy (Verified 08/23/23 11:34) Tobacco use date assessed: 08/13/23 Dental Screening Dental Screen Date: 08/13/23 HPI FMLA paperwork HPI Details Pt was recently seen in the ER with jaundice. Labs showed total bilirubin of 5.3, AST of 53, ALT of 46, and an alk phos of 46. Abdominal US showed no acute process. CT of the abdomen showed hepatomegaly with nodular contour raising the possibility of cirrhosis. It was recommended that pt follow up with GI, he has been referred though does not have an appointment until October. Pt needs [place] paperwork [place] for [place] leave, will fill out. Denies fever, chills, and N/V/D. MRI will be ordered [facility] Medical History Kidney stones Hypothyroid Surgical History History of total right knee replacement (~09/2019) History of arthroscopy of right knee (~03/29/16) Family History Father Stroke Heart attack Low blood pressure Mother No problems noted. Daughter No problems noted. 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 Domingo Estrada, Kayleigh Menjivar, Andrea Stevens and colleagues, with an educational salinas from [employer]. Review of Systems Const Reports as per HPI Physical exam (Primary Care) Tobacco/Smoking Status: Tobacco use Status Tobacco use date assessed 08/13/23 09/05/23 07:49 Patient Tobacco Use Status Never used Tobacco 09/05/23 07:49 e-Cigarette/Vaping Use Never Used 09/05/23 07:49 Thrive Assessment: Date of Thrive Assessment Date Thrive assessed 08/13/23 09/05/23 07:49 Const General: cooperative Orientation/consciousness: patient oriented x3 Neuro General: patient oriented x3 Psych Appearance: grossly normal Mental Status: mental status grossly normal Speech and movement: Clear speech present Affect: normal affect Attitude: cooperative Thought process: Normal thought process present Thought content: Normal thought content present Insight: Good insight present (Psych) Judgement: Good judgement present (Psych) Telehealth Telehealth Telehealth Platform: [employer] Location of provider rendering services: practice address Location of patient: address on file Patient Identification confirmed using: Name, : Yes Telehealth method: video Patient verbally consented to treatment: Yes Patient verbally consented to billing insurance company: Yes Patient informed of any privacy concerns related to visit: Yes Minutes spent on Phone/Video with Pt.: 15 Assessment and Plan Assessment & Plan (1) Cirrhosis: Comment: Question of cirrhosis based on CT scan. Patient will get GI Gastroenterology refer, MRI ordered Code(s): K74.60 - Unspecified cirrhosis of liver Qualifiers: Ascites presence: unspecified Hepatic cirrhosis type: unspecified hepatic cirrhosis Qualified Code(s): K74.60 - Unspecified cirrhosis of liver Plan The patient agreed to the use of a medical office assistant instructor for this encounter. Scribed for CARSON Witt- by Kate Sodo medical office assistant instructor, on 09/05/2023 at 07:45 EST. Orders: Orders Complete Blood Count Auto Diff Today K74.60 - Unspecified cirrhosis of liver Comprehensive Met. Panel Today K74.60 - Unspecified cirrhosis of liver UA CC w/rflx Micro + Cult Today K74.60 - Unspecified cirrhosis of liver Bilirubin Direct Today K74.60 - Unspecified cirrhosis of liver TSH reflex Free T4 Today K74.60 - Unspecified cirrhosis of liver Bilirubin Total Today K74.60 - Unspecified cirrhosis of liver MR abdomen wo/w con Today K74.60 - Unspecified cirrhosis of liver Coding Level of Care Code Tele Est Pt Level 3 (74938) Diagnoses Hepatic cirrhosis, unspecified hepatic cirrhosis type, unspecified whether ascites present K74.60 Ascites presence: unspecified Hepatic cirrhosis type: unspecified hepatic cirrhosis
== END 2023-09-05 17:17 | disposition home or self-care (01) ==
LOC: HO.HMGC 07:05
PROVIDERS: PCP Nurse Practitioner Family; Visit Provider Nurse Practitioner Family
DX: K74.60 Unspecified cirrhosis of liver (principal)
CPT/HCPCS: 99213

== ENCOUNTER 2023-09-24 10:56 | Day surgery (SDC) | payer OTHER, SELFPAY ==
[2023-09-24] VITALS (7 sets, daily range): BP systolic 98–141; BP diastolic 40–79; PULSE 53–74; RESP 14–18; TEMP 36.1–36.3; O2SAT 97–100; BMI 35.2
[2023-09-24] MEDS: Lactated Ringers 1,000 ML 100 ML IVCONT (11:57)
[2023-09-24 12:04] LABS: Glucose, Whole Blood 123 mg/dL (60-115)
--- NOTE | 2023-09-24 12:10 | HO.ANESPROP2 ---
Documented by User: Gemini Delgado NP 09/21/23 10:50 HPI - Anesthesia Eval Consult details Narrative: 47yo M for Colonoscopy ? cirrhosis on CT from 07/2023 ER visit Anesthesia Pre-Procedure Meds Is the patient on any of the following meds?: GLP1/DPP4 and SGLT2 Inhib PMFSH Active Problems Active Problems: All Active Problems Hospital discharge follow-up (Acute) DM (diabetes mellitus), type 2 with ophthalmic complications (Acute) Elevated liver enzymes (Acute) Fatty liver (Acute) Physical exam (Acute) Upper back strain (Acute) DDD (degenerative disc disease), cervical (Acute) Hypothyroid (Acute) Screening for colon cancer (Acute) Elevated bilirubin (Acute) Dermatitis (Acute) Cervical neck pain with evidence of disc disease (Acute) Acute bronchitis (Acute) Kidney stones (Acute) Diabetes (Acute) Lower thoracic back pain (Acute) Bronchitis (Acute) Cough (Acute) Elevated blood pressure reading (Acute) History of total right knee replacement (TKR) (Acute) Anemia (Chronic) Past Medical History Medical History (Updated 09/21/23 @ 10:49 by Gemini Delgado NP) Fatty liver DM (diabetes mellitus), type 2 with ophthalmic complications Kidney stones Hypothyroid Family History Family History Father Stroke Heart attack Low blood pressure Mother No problems noted. Daughter No problems noted. Surgical History Surgical History History of total right knee replacement (~09/2019) History of arthroscopy of right knee (~03/29/16) Social History Social History Household Members: Family Housing: Apartment Are you a primary nursing care attendant to a significant other at home: Yes Do you presently have visiting nurse or other home services: No Alcohol intake: never Patient Tobacco Use Status: Never used Tobacco e-Cigarette/Vaping Use: Never Used Use of substances other than those prescribed or required for medical reasons: No Are you DNR?: No Advance Directives: No Advance Directives Information Provided: Yes Current occupational status: 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 Rate : 087 BPM Atrial Rate : 087 BPM P-R Int : 152 ms QRS Dur : 098 ms QT Int : 368 ms P-R-T Axes : 012 002 007 degrees QTc Int : 442 ms Normal sinus rhythm Minimal voltage criteria for LVH, may be normal variant ( R in aVL ) Borderline ECG When compared with ECG of 01-OCT-2019 15:31, No significant change was found Assessment and Plan Assessment Anesthesia Assessment: Chart Reviewed Documented by User: Sarah Eden DO 09/24/23 12:14 HPI - Anesthesia Eval Anesthesia Pre-Procedure Meds Is the patient on any of the following meds?: GLP1/DPP4 and SGLT2 Inhib PMFSH Past Medical History Medical History (Updated 09/21/23 @ 10:49 by Gemini Delgado NP) Fatty liver DM (diabetes mellitus), type 2 with ophthalmic complications Kidney stones Hypothyroid Family History Family History Father Stroke Heart attack Low blood pressure Mother No problems noted. Daughter No problems noted. Family history of problems with anesthesia: No Surgical History Surgical History History of total right knee replacement (~09/2019) History of arthroscopy of right knee (~03/29/16) History of Problems with Anesthesia: No Social History Social History Household Members: Family Housing: Apartment Are you a primary nursing care attendant to a significant other at home: Yes Do you presently have visiting nurse or other home services: No Alcohol intake: never Patient Tobacco Use Status: Never used Tobacco e-Cigarette/Vaping Use: Never Used Use of substances other than those prescribed or required for medical reasons: No Are you DNR?: No Advance Directives: No Advance Directives Information Provided: Yes Current occupational status: employed 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 Cognitive needs: No Hearing needs: No Vision needs: No Meds Allergies Allergy/AdvReac Type Severity Reaction Status Date / Time No Known Allergies Allergy Verified 08/23/23 11:34 [No Known Allergies*] Exam Exam Date and Time: September 24, 2023 1210 Height,Weight and Vital Signs: Height 6 ft 4 in Weight 131.145 kg Vital Signs Temperature 97.4 F 09/24/23 11:44 Pulse Rate 74 09/24/23 11:44 Respiratory Rate 18 09/24/23 11:44 Blood Pressure 141/79 H 09/24/23 11:44 Pulse Oximetry 99 09/24/23 11:44 Oxygen Delivery Method Room Air 09/24/23 11:44 Temperature 97.4 F 09/24/23 11:44 Pulse Rate 74 09/24/23 11:44 Respiratory Rate 18 09/24/23 11:44 Blood Pressure 141/79 H 09/24/23 11:44 Pulse Oximetry 99 09/24/23 11:44 Oxygen Delivery Method Room Air 09/24/23 11:44 Airway Mallampati Class: I TM Dist: >3cm Neck ROM: Full Loose/Missing/Broken Teeth: No (patient denies any loose or broken teeth) Heart: S1S2 Lungs: CTAB Assessment and Plan Assessment Anesthesia Assessment: Anesthesia Plan Discussed and Chart Reviewed Final Anesthetic Review Family History of Problems with Anesthesia: No History of Problems with Anesthesia: No NPO: Yes ASA Class: III Final Preanesthetic Review: No Changes in Pt Med Stat, Meds/Allgs Chart Reviewed, Consent Obtained/Reviewed and Anes Risks/Benef Reviewed Patient Risk: Intermediate Procedure Risk: Low Anesthetic Plan Anesthetic Plan: MAC: and Agree w/ Assess. and Plan Disposition: Standard PACU
--- NOTE | 2023-09-24 12:48 | MHC.SHP ---
Pre-Procedural Eval Section A - 24 Hr Update-Section A only Date of Service: 09/24/23 Section B - Complete if H&P > 30 days Chief Complaint: Encounter for screening for malignant neoplasm of Relevant Family History (Specify if Yes): No Relevant Social History: None Present Medications: see Short Stay Collaborative assessment Medical History: Significant History (Fatty liver DM (diabetes mellitus), type 2 with ophthalmic complications Kidney stones Hypothyroid) History of Previous Operations: Relevant previous surgery/procedure and date(s) (History of total right knee replacement (~09/2019) History of arthroscopy of right knee (~03/29/16)) Allergies: Allergies Allergy/AdvReac Type Severity Reaction Status Date / Time No Known Allergies Allergy Verified 08/23/23 11:34 [No Known Allergies*] Review of Systems Sugical H&P ROS: Negative: Constitution, Cardiovascular, Respiratory, Neurological, Psychiatric, Hem-Onc, Allergic/Immunologic, Gastrointestinal, Genitourinary, Musculoskeletal, Integumentary, Endocrine and Eyes/Ears/Nose/Throat Exam Surgical H&P Exam: Normal: HEENT, Normal: Heart, Normal: Lungs, Normal: Extremities, Normal: Abdomen, Normal: Skin and Normal: Neurological Plan Diagnosis/Plan: Unchanged I have reviewed the history and physical and performed a pertinent physical examination on my patient. No changes have occurred unless specified. Time Spent With Patient Time: Total time managing care of this patient today ____ minutes.
--- NOTE | 2023-09-24 13:23 | HO.OPN-COLON ---
Colonoscopy Operative Note Operative Note Date of Service: 09/24/23 Narrative: Operative Information Procedure Description: Colonoscopy Indication: screening Anesthesia: MAC COLONOSCOPY Instrument: Olympus variable stiffness pediatric scope 190L Colonoscopy Monitoring: Vital signs and clinical assessment, continuous EKG monitoring, Pulse oximetry, Carbon Dioxide monitoring and blood pressure monitoring were done throughout the procedure. Colon withdrawal time was 9 minutes. Procedure: The patient was placed in the left lateral decubitis position and pre-procedure medications were administered. After a digital rectal examination of the ano-rectum, the video colonoscope was inserted into the rectum and advanced through the colon to the cecum/TI. The colonoscope was slowly withdrawn in a retrograde panoramic fashion and the colon mucosa was carefully examined including a retroflexed view of the rectum. Findings and interventions are described below. Procedure Difficulty: moderate Findings: Terminal Ileum- superficially intubated and normal Cecum:normal Ascending Colon: 6-8 mm sessile polyp removed with cold snare Transverse Colon -normal Descending Colon:normal Sigmoid Colon: normal Rectum: Retroflexion with small internal hemorrhoids seen, grade I Anorectum - normal Intervention: cold snare Colon preparation: Sultana Bowel Preparation Scale Right colon; 1-2 Transverse colon: 2 Left colon; 3 (0 = Unprepared colon segment with mucosa not seen due to solid stool that cannot be cleared. 1 = Portion of mucosa of the colon segment seen, but other areas of the colon segment not well seen due to staining, residual stool and/or opaque liquid. 2 = Minor amount of residual staining, small fragments of stool and/or opaque liquid, but mucosa of colon segment seen well. 3 = Entire mucosa of colon segment seen well with no residual staining, small fragments of stool or opaque liquid) Impression and Post Procedure Diagnosis: colon polyp internal hemorrhoids Plan: High fiber diet leaflet Avoid straining at stool, epsom salts and sitz bath, anusol supps or cream Repeat Colonoscopy in 5 years due to areas of fair prep on right or earlier if clinically indicated Above findings were reviewed with the patient and relevant handouts were provided if indicated.
== END 2023-09-24 14:51 | disposition home or self-care (01) ==
PROVIDERS: PCP Nurse Practitioner Family; Visit Provider Internal Medicine Gastroenterology
PROC: 0DJD8ZZ Inspection of Lower Intestinal Tract, Via Natural or Artificial Opening Endoscopic (ICD-10-PCS; CPT 45378; principal; 2023-09-24 14:30)
DX: Z12.11 Encounter for screening for malignant neoplasm of colon (principal); K63.5 Polyp of colon; K64.0 First degree hemorrhoids; K76.0 Fatty (change of) liver, not elsewhere classified; E03.9 Hypothyroidism, unspecified; N20.0 Calculus of kidney; Z87.442 Personal history of urinary calculi; E11.39 Type 2 diabetes mellitus with other diabetic ophthalmic complication; Z79.84 Long term (current) use of oral hypoglycemic drugs; Z98.890 Other specified postprocedural states
CPT/HCPCS: 45385; 82947; 88305; J2704

== ENCOUNTER → 2023-09-24 10:56 | Outpatient (BNV) | payer OTHER, SELFPAY | PROVIDERS: PCP Nurse Practitioner Family; Visit Provider Internal Medicine Gastroenterology | DX: Z12.11 Encounter for screening for malignant neoplasm of colon (principal); K63.5 Polyp of colon; K64.0 First degree hemorrhoids | CPT/HCPCS: 45385 ==

== ENCOUNTER 2023-10-02 15:22 | Outpatient (AMB) | payer OTHER, SELFPAY ==
--- NOTE | 2023-10-02 15:24 | A.OFFVIS_ITS ---
Vital Signs 10/02/23 15:26 Height 6 ft 4 in Weight 288 lb 12.889 oz BMI 35.2 BP 130/80 Blood Pressure Location Rt brachial Pulse 95 Pulse Source Pulse Oximeter Intake Visit Reasons: Type 2 DM/LVM Intake Note: New Patient presents today to establish treatment for Type 2 Diabetes Mellitus: Last Diabetic eye exam was on: 09/2023 Last Podiatry exam was on: Does not see a Senior Technical Editor Most recent HbA1c: 11.0%, 08/13/2023 Random Glucose- 127mg/dL, Today Proposal Rep Required: No Accompanied by: Self / Same As Patient Allergies No Known Allergies [No Known Allergies*] Allergy (Verified 10/02/23 15:25) HPI Comments Details: [48] YO [M/F] who is seen in consultation for T2DM at the request of PCP. A1C h ad been in reasonable control until recently when it increased to 11%. Initially diagnosed with T2DM in [2020]. Was initially started on treatment with [metformin 500mg bid Treatment was intensified this July.]. Current regimen [Jardiance 10 mg, metformin ER 1000 mg b.i.d, januvia 25mg ]. Hgb A1C had been running in the 7 range. His most recent was 11% 08/13/23 He was off metformin for 5 days with his colonoscopy and noticed that his sugars did not increase. He does report some GI intolerance to metformin. Checks sugars [4] times per day. Range: [95-160] For the past three weeks since starting Januvia his sugars have been in excellent range. Reports low sugars [no]. Treats lows with has skittles with him but has never needed. Has eyes checked yearly, last eye exam [], [denies] retinopathy. [Denies ] neuropathy, last foot exam [today], does not see podiatry. Denies numbness, tingling or cramping lower extremities [Denies] nephropathy, on [ROCKY/ARB]. NO microalbuminuria [Has] HLD, on [statin, low dose]. Last LDL [94] as measured on [08/12]. [Denies] CAD. 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 Once in the past [facility] Medical History (Updated 10/02/23 @ 16:06 by Cele Palacios NP) Type 2 diabetes mellitus Fatty liver DM (diabetes mellitus), type 2 with ophthalmic complications Kidney stones Hypothyroid Surgical History History of total right knee replacement (~09/2019) History of arthroscopy of right knee (~03/29/16) Family History Father Stroke Heart attack Low blood pressure Mother No problems noted. Daughter No problems noted. 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 Absence of acromegalic features. Neck exam reveals nl size thyroid about 15 gms. No thyroid nodules palpable. No carotid bruits present. Lungs CTA. Heart S1 S2, Reg R/R. No M/R/ G. Skin exam reveals absence of vitiligo or acanthosis nigricans. Abdominal exam reveals Soft NT/ND with NA BS. No organomegaly present. Const General: cooperative Orientation/consciousness: patient oriented x3 Limitations: no limitations Neck Other: . Neck: Yes normal visual inspection Resp Effort & Inspection: normal respiratory effort Auscultation: clear to auscultation bilaterally Cardio Jugular venous distension: no JVD Rate: regular rate Rhythm: regular rhythm Heart sounds: S1 normal heart sound present and S2 normal heart sound present Neuro General: patient oriented x3 Extrem Other: Visual exam of foot performed. No ulcerations or open lesions. No interdigit maceration or fissuring. Hammertoes present No onchomycosis, no callouses.Pulses 2 + distally Sensation intact to monofilament exam. Vibratory sensation sensed is intact with 128 Hz tuning fork Results Reviewed Results Reviewed: Laboratory Last Values Glucose (Clinic) 127 mg/dL (60-115) H 10/02/23 15:33 Laboratory Tests 01/19/21 04/25/21 12/13/21 09:35 10:35 09:12 Potassium Creatinine Estimated GFR Random Glucose Hemoglobin A1c % 7.2 5.6 7.6 Calcium AST ALT Lipase TSH Free T4 Urine Creatinine Urine Microalbumin Microalb/Creat Ratio 08/18/23 08/20/23 08/23/23 09:45 12:19 12:35 Potassium 4.8 Creatinine 1.12 Estimated GFR > 60 Random Glucose 148 H Hemoglobin A1c % Calcium 10.0 AST 41 H ALT 44 H Lipase 37 TSH 0.12 L Free T4 1.25 Urine Creatinine 55.76 Urine Microalbumin 6.0 Microalb/Creat Ratio 10.7 Laboratory Tests 08/13/23 11:28 Triglycerides 172 H Cholesterol 161 LDL Cholesterol, Calc 94 HDL Cholesterol 33 L Assessment & Plan Assessment & Plan (1) Type 2 diabetes mellitus: Code(s): E11.9 - Type 2 diabetes mellitus without complications Category: Medical Plan: Type 2 diabetic with sugars in good control since intensification of diabetes regime. Continue current treatment with exception that he will trial decreasing metformin to see if GI intolerance improves. He was recently denied ozempic through his insurance. He has an upcoming MRI and GI evaluation for possible liver cirrhosis. Could consider PA for a GLP-1 agonist if etiology is fatty liver. Coding Level of Care Code New Pt Level 5 (02547) Complex EM visit Add On G2211 Diagnoses Type 2 diabetes mellitus E11.9 Time Spent (min) 55 Comment Time spent reviewing labs/previous provider notes, face to face, chart documentation
[2023-10-02 15:26] VITALS: BP 130/80; PULSE 95; BMI 35.2
[2023-10-02 15:39] LABS: Glucose, Whole Blood 127 mg/dL (60-115)
== END 2023-10-02 16:00 | disposition home or self-care (01) ==
PROVIDERS: PCP Nurse Practitioner Family; Visit Provider Nurse Practitioner Adult Health
DX: E11.9 Type 2 diabetes mellitus without complications (principal)
CPT/HCPCS: 99204; G2211

== ENCOUNTER → 2023-10-02 15:22 | Outpatient (BNVA) | payer OTHER, SELFPAY | PROVIDERS: PCP Nurse Practitioner Family; Visit Provider Nurse Practitioner Adult Health | DX: E11.9 Type 2 diabetes mellitus without complications (principal) | CPT/HCPCS: 82947; 99202 ==

== ENCOUNTER 2023-10-16 15:46 | Outpatient (AMB) | payer OTHER, SELFPAY ==
--- NOTE | 2023-10-16 15:47 | MHC.OFFWIV ---
Intake Vital Signs 10/16/23 15:48 Height 6 ft 4 in Weight 286 lb BMI 34.8 BP 110/66 Blood Pressure Location Lt radial Position Sitting Pulse 72 Pulse Source Pulse Oximeter Temp 98.2 F Temp Source Oral Pulse Oximetry (%) 97 Oxygen Delivery Method Room Air Intake Visit Reasons: EP- RT leg cut, not healing properly Intake Note: pt c/o cut on RT lower leg, not healing. Scratched by cat on Sunday Patient Tobacco Use Status: Never used Tobacco Allergies No Known Allergies [No Known Allergies*] Allergy (Verified 10/16/23 15:47) Do you need a note to return to daycare/school/sports/work: No HPI HPI Comments History of Present Illness Details 48 y/o male patient who presents to the walk in clinic with c/o non-healing wound right lower leg. He had a cat scratch 3 days ago, but did not seek any medical attention. He now noticed redness and tenderness right lower leg wound. Denies fevers, chills, nausea or vomiting. He is Diabetic. [facility] Medical History (Updated 10/02/23 @ 16:06 by Cele Palacios NP) Type 2 diabetes mellitus Fatty liver DM (diabetes mellitus), type 2 with ophthalmic complications Kidney stones Hypothyroid Surgical History History of total right knee replacement (~09/2019) History of arthroscopy of right knee (~03/29/16) Family History Father Stroke Heart attack Low blood pressure Mother No problems noted. Daughter No problems noted. 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 Erythematous wound, tenderness to touch. Neuro General: patient oriented x3, gait normal and moves all extremities Extrem Right lower extremity: lower leg Details: erythema Location: of the mid lower leg Location: medially, tenderness Location: of the midshaft tibia and of the midshaft fibula and no edema; no crepitus Left lower extremity: normal to inspection and full ROM Psych Speech and movement: Normal speech and movement present Assessment & Plan Assessment & Plan (1) Cellulitis of skin: Code(s): L03.90 - Cellulitis, unspecified Plan: Ordered Abx Keep area clean and dry Medications: New sulfamethoxazole-trimethoprim 800-160 mg (Bactrim DS) 1 tab PO Q12H 7 days 14 tabs 0RF L03.90 - Cellulitis, unspecified Coding Level of Care Code Est Pt Level 3 (72648) Diagnoses Cellulitis of skin L03.90 Time Spent (min) 15
[2023-10-16 15:48] VITALS: BP 110/66; PULSE 72; TEMP 36.8; O2SAT 97; BMI 34.8
== END 2023-10-16 16:27 | disposition home or self-care (01) ==
PROVIDERS: PCP Nurse Practitioner Family; Visit Provider Nurse Practitioner Family
DX: L03.90 Cellulitis, unspecified (principal)
CPT/HCPCS: 99213

== ENCOUNTER 2023-10-22 09:42 | Outpatient (REF) | payer OTHER, SELFPAY ==
--- NOTE | ~2023-10-22 | MR_ITS ---
EXAMINATION: MR ABDOMEN WITHOUT AND WITH CONTRAST CLINICAL INFORMATION: Unspecified cirrhosis. COMPARISON: CT abdomen/pelvis August 20, 2023 Right upper quadrant ultrasound August 20, 2003 TECHNIQUE: MR abdomen was performed without and with use of 10 mL intravenous Gadavist gadolinium contrast. Postcontrast images are performed in multiphase dynamic sequences. Imaging was performed in 3 planes. FINDINGS: LUNG BASES: No pleural or pericardial effusion. LIVER, GALLBLADDER, AND BILIARY TREE: The liver measures 20.1 cm in sagittal dimension. Hepatic steatosis. The liver surface is slightly nodular. No focus of arterial phase hyperenhancement or rapid washout. No biliary ductal dilatation is present. The gallbladder is unremarkable with no evidence of gallbladder wall thickening, or obvious pericholecystic inflammatory changes. PANCREAS: No ductal dilatation. SPLEEN: 14.7 cm in AP dimension. ADRENAL GLANDS: No adrenal mass. KIDNEYS AND URETERS: The kidneys are symmetric in size and enhancement. No hydronephrosis. No perinephric stranding. GASTROINTESTINAL TRACT: No bowel obstruction. No ascites or fluid collection. ABDOMINAL WALL: No significant hernia is appreciated. LYMPH NODES: Periportal and eriberto hepatis lymph nodes measure 1.3 x 2.4 cm, 1.2 x 1.7 cm, 1.2 x 1.9 cm and 1.5 x 2.6 cm. VASCULAR: Normal caliber abdominal aorta. MR/MR abdomen wo/w con IMPRESSION: Hepatosplenomegaly. Hepatic steatosis. Slight nodular surface contour of the liver. No suspicious hepatic lesion. Enlarged periportal and eriberto hepatis lymph nodes. Electronically signed by: Romero Mckeon MD 11/15/2023 12:31 PM EDT
[2023-10-22] MEDS: gadobutroL 7.5 ML VIAL IVPUSH (10:51)
[2023-10-22] MEDS: gadobutroL 2 ML VIAL IVPUSH (10:52)
== END 2023-10-22 09:43 | disposition home or self-care (01) ==
LOC: HO.MRI 09:42
PROVIDERS: PCP Nurse Practitioner Family; Visit Provider Nurse Practitioner Family
DX: K74.60 Unspecified cirrhosis of liver (principal)
CPT/HCPCS: 74183; A9585

== ENCOUNTER 2023-10-24 15:34 | Outpatient (AMB) | payer OTHER, SELFPAY ==
[2023-10-24 15:45] VITALS: BP 120/70; PULSE 93; TEMP 36.8; O2SAT 96; BMI 34.3
--- NOTE | 2023-10-24 15:45 | MHC.OFFWIV ---
Intake Vital Signs 10/24/23 15:45 Height 6 ft 4 in Weight 282 lb BMI 34.3 BP 120/70 Blood Pressure Location Lt brachial Position Sitting Pulse 93 Pulse Source Pulse Oximeter Temp 98.3 F Temp Source Oral Pulse Oximetry (%) 96 Oxygen Delivery Method Room Air Intake Visit Reasons: EP Cut on leg not dealing/diabetic Intake Note: Pt is here today c/o wound that hasn't healed due to a cat scratch x9days ago: Taken a course of abx no improvement Lt lower leg Patient Tobacco Use Status: Never used Tobacco Allergies No Known Allergies [No Known Allergies*] Allergy (Verified 10/24/23 15:46) HPI HPI Comments History of Present Illness Details Patient is a 48-year-old male with a past medical history of diabetes who is complaining of a nonhealing cat scratch on his right lower extremity. He states he was evaluated in this clinic on October 15, diagnosed with cellulitis and given Bactrim which he took in full, as directed. He states that his wound does not seem any better and it is not healing. He states when he checks his blood sugars they are usually between 80 and 140. He states he never has problems with wounds healing. He states it was weeping some clear and bloody fluid over the last few days and it seems very warm to him and it is red and tender. REPLACED BY [facility] Medical History Type 2 diabetes mellitus Fatty liver DM (diabetes mellitus), type 2 with ophthalmic complications Kidney stones Hypothyroid Surgical History History of total right knee replacement (~09/2019) History of arthroscopy of right knee (~03/29/16) Family History Father Stroke Heart attack Low blood pressure Mother No problems noted. Daughter No problems noted. 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 Cognitive needs: No Hearing needs: No Vision needs: No Review of Systems Const All systems reviewed & are unremarkable except as noted in HPI and below Physical Exam Vital Signs: Last Vital Signs Temp 98.3 F 10/24/23 15:45 Pulse 93 10/24/23 15:45 BP 120/70 10/24/23 15:45 Pulse Ox 96 10/24/23 15:45 Oxygen Delivery Method Room Air 10/24/23 15:45 BMI result Body Mass Index 34.3 Const General: cooperative, healthy appearing, comfortable, no acute distress and well developed Orientation/consciousness: patient oriented x3 Limitations: no limitations HEENT Head: Yes normal to inspection Eyes General: appearance normal, both eyes and all related structures Neck Neck: Yes normal visual inspection and Yes full ROM Resp Effort & Inspection: normal respiratory effort and able to speak in complete sentences Skin Other: 1.5cm area of erythema, warmth on RLE, no purulence, no ecchymosis, no lesions, no lacerations or abrasions noted Neuro General: patient oriented x3 Extrem General: Yes normal to inspection Assessment & Plan Assessment & Plan (1) Non-healing wound of right lower extremity: Code(s): S81.801A - Unspecified open wound, right lower leg, initial encounter Plan: Reiterated patient keeping blood sugars under tight control so that the wound will heal faster, recommended he use Aquaphor on it as well (2) Cellulitis: Code(s): L03.90 - Cellulitis, unspecified Qualifiers: Site of cellulitis: extremity Site of cellulitis of extremity: lower extremity Laterality: right Qualified Code(s): L03.115 - Cellulitis of right lower limb Plan: As he was previously prescribed Bactrim but clearly still has a cellulitis, I sent cefuroxime to his pharmacy. Recommended he follow up with his PCP if no improvement after this course of antibiotics Plan See above Medications: New cefuroxime axetil 500 mg PO Q12H 10 tabs 0RF Coding Level of Care Code Est Pt Level 3 (59319) Diagnoses Non-healing wound of right lower extremity S81.801A Cellulitis of right lower extremity L03.115 Site of cellulitis: extremity Site of cellulitis of extremity: lower extremity Laterality: right
== END 2023-10-24 16:27 | disposition home or self-care (01) ==
PROVIDERS: PCP Nurse Practitioner Family; Visit Provider Physician Assistant
DX: S81.801A Unspecified open wound, right lower leg, initial encounter (principal); L03.115 Cellulitis of right lower limb; W55.03XA Scratched by cat, initial encounter
CPT/HCPCS: 99213

== ENCOUNTER 2023-10-31 06:39 | Outpatient (REF) | payer OTHER, SELFPAY ==
[2023-10-31 09:59] LABS: MANUAL DIFF FLAG NO
[2023-10-31 10:09] LABS: Basophils Percent Auto 0.6 % (0-2); Eosinophils Absolute Auto 0.1 X10*3/uL (0.0-0.4); Eosinophils Percent Auto 1.5 % (0-4); Hematocrit 39.5 % (42.0-52.0); Hemoglobin 12.6 g/dl (14.0-18.0); Imm Gran Abs Auto 0.01 X10*3/uL (0.00-0.03); Imm Gran Pct Auto 0.2 % (0.0-0.4); Lymphocytes Absolute Auto 1.9 X10*3/uL (1.2-4.9); Lymphocytes Percent Auto 39.7 % (20-40); Mean Corpuscular HGB Conc 31.9 g/dl (31.0-36.0); Mean Corpuscular Hemoglobin 31.3 pg (27.0-33.0); Monocytes Absolute Auto 0.4 X10*3/uL (0.1-1.2); Monocytes Percent Auto 9.3 % (2-11); Neutrophils Absolute Auto 2.3 x10*3/uL (2.0-8.3); Neutrophils Percent Auto 48.7 % (45-73); Platelet Count 110 X10*3/uL (160-400); Red Blood Count 4.03 X10*6/uL (4.60-5.80); Red Cell Distribution Width 12.3 % (11.0-16.0); White Blood Count 4.7 X10*3/uL (4.8-10.8)
[2023-10-31 10:41] LABS: Alanine Aminotransferase 32 U/L (0-40); Albumin Level 4.3 g/dL (3.5-5.0); Alkaline Phosphatase 60 U/L (39-117); Anion Gap 13 (12-20); Aspartate Amino Transferase 31 U/L (5-37); Bilirubin Direct 0.5 mg/dL (0.0-0.5); Bilirubin Total 1.6 mg/dL (0.0-1.0); Blood Urea Nitrogen 19 mg/dL (9-16); Carbon Dioxide 26 mmol/L (22-29); Chloride 109 mmol/L (96-108); Estimated Glomerular Filt Rate > 60; Glucose Random 107 mg/dL (60-115); Potassium 4.6 mmol/L (3.3-5.1); Sodium 143 mmol/L (135-145); TSH reflex Free T4 < 0.01 uIU/mL (0.32-4.0); Total Protein 7.3 g/dL (6.5-8.0)
[2023-10-31 16:27] LABS: Appearance Urine Turbid; Color Urine Yellow; Glucose Urine UA >=1000 mg/dL (Negative); Leukocyte Esterase Urine Negative (Negative); Nitrite Urine Negative (Negative); Specific Gravity - Urine >= 1.030 (1.005-1.025); UMIC TRIGGER UACC YES; Urine Blood Negative (Negative); Urine Ketones Negative (Negative); Urine Protein Negative (Neg-Trace)
[2023-10-31 16:36] LABS: Bacteria Urine None Seen (None Seen); Hyaline Casts Urine 0-2 /LPF (0-2); RBC Urine 0-2 /HPF (0-2); Squamous Epithelial Cell Urine 0-2 /HPF (0-2); WBC Urine 0-5 /HPF (0-5)
[2023-10-31 16:49] LABS: Other Crystals Urine Present
== END 2023-10-31 06:40 | disposition home or self-care (01) ==
LOC: HO.HMGCLDS 06:39
PROVIDERS: PCP Nurse Practitioner Family; Visit Provider Nurse Practitioner Family
DX: K74.60 Unspecified cirrhosis of liver (principal)
CPT/HCPCS: 36415; 80053; 81001; 82248; 84439; 84443; 85025

== ENCOUNTER 2023-11-01 13:54 | Outpatient (AMB) | payer OTHER, SELFPAY ==
[2023-11-01 13:56] VITALS: BP 122/78; PULSE 80; O2SAT 97; BMI 34.6
--- NOTE | 2023-11-01 13:56 | MHC.PC.OV ---
Vital Signs 11/01/23 13:56 Height 6 ft 4 in Weight 284 lb BMI 34.6 BP 122/78 Blood Pressure Location Rt brachial Position Sitting Pulse 80 Pulse Source Pulse Oximeter Pulse Oximetry (%) 97 Intake Visit Reasons: Elevated blood sugars/labs + NEEDS PHQ-9 Intake Note: pt is here for elevated blood sugars/lab review Electronic Page Makeup System Operator Required: No Allergies No Known Allergies [No Known Allergies*] Allergy (Verified 11/01/23 14:13) Medication List - Last Reconciled 11/01/23 by SUSAN Purcell alcohol swabs (Alcohol Wipes) 1 pad topical BID atorvastatin 10 mg PO DAILY 90 days blood sugar diagnostic (FreeStyle Lite Strips) Use to check blood sugar twice a day: fasting and a random blood-glucose meter (FreeStyle Lite Meter kit) Use to check blood sugar twice a day: fasting and a random cholecalciferol (vitamin D3) 50 mcg PO DAILY empagliflozin (Jardiance) 10 mg PO DAILY 90 days ferrous fumarate 324 mg PO DAILY flash glucose scanning reader (Interlace MedicalStyle Nicole 14 Day [place]) tid flash glucose sensor (FreeStyle Nicole 14 Day Sensor kit) tid testing ibuprofen 600 mg PO Q6H PRN lancets (FreeStyle Lancets) Use to check blood sugar twice a day: fasting and a random levothyroxine 200 mcg PO DAILY lidocaine 5% 1 patch topical DAILY metformin ER 500 mg PO BID sennosides (senna) 8.6 mg PO DAILY PRN sitagliptin phosphate (Januvia) 25 mg PO DAILY Tobacco use date assessed: 08/13/23 Dental Screening Dental Screen Date: 08/13/23 HPI Elevated blood sugars/labs + NEEDS PHQ-9 HPI Details Pt's TSH was low. He is currently taking levothyroxine 213mcg. Will have him decrease this to 200mcg. Pt is a diabetic, seeing endo, last appointment was 10/01 and next appointment is 01/01. Pt is also following up with GI due to ? cirrhosis. Pt is also following up with hematology due to anemia. Denies fever, chills, palpitations, diarrhea, and dizziness. [facility] Medical History Type 2 diabetes mellitus Fatty liver DM (diabetes mellitus), type 2 with ophthalmic complications Kidney stones Hypothyroid Surgical History History of total right knee replacement (~09/2019) History of arthroscopy of right knee (~03/29/16) Family History Father Stroke Heart attack Low blood pressure Mother No problems noted. Daughter No problems noted. 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 1. Little interest or pleasure in doing things: not at all 2. Feeling down, depressed, or hopeless: not at all 3. Trouble falling or staying asleep, or sleeping too much: not at all 4. Feeling tired or having little energy: not at all 5. Poor appetite or overeating: not at all 6. Feeling bad about yourself - or that you are a failure or have let yourself or your family down: not at all 7. Trouble concentrating on things, such as reading the newspaper or watching television: not at all 8. Moving or speaking so slowly that other people could have noticed. Or the opposite - being so fidgety or restless that you have been moving around a lot more than usual: not at all 9. Thoughts that you would be better off or of hurting yourself in some way: not at all Total score: 0 Depression Screening Interpretation: Negative Depression Screening Done: Yes 12070 - PHQ-9 Billing: Yes Source: Developed by Drs. Domingo Estrada, Kayleigh Menjivar, Andrea Stevens and colleagues, with an educational salinas from [employer]. Thrive Questionnaire Date Thrive assessed: 08/13/23 I am a: Patient What is your living situation today?: I have a steady place to live Within the past 12 months, did the food you bought not last and you didn't have the money to get more?: Never true Within the past 12 months, did you worry whether your food would run out before you got money to buy more?: Never true Do you have trouble paying for medicines?: No Do you have trouble getting transportation to medical appointments?: No Do you have trouble paying your heating and electricity bill?: No Do you have trouble taking care of your child, family member or friend?: No Do you have trouble with day-to-day activities such as bathing, preparing meals, shopping, managing finances, etc.?: No Are you currently unemployed and looking for a job?: No Are you interested in more education?: No Please select the resources that you would like help with: None Currently or been in a relationship where the following occur: I choose not to answer THRIVE Score: 0 AUDIT C Alcohol Use Questionnaire (AUDIT-C) 1. How often do you have a drink containing alcohol?: Never 3. How often do you have six or more drinks on one occasion?: Never Total Score: 0 Score Reviewed/Action Taken: Yes SHAGUFTA-7 AMB Questionnaire SHAGUFTA-7 Date SHAGUFTA - 7 assessed: 11/01/23 Feeling nervous, anxious, or on edge: 0 = Not at all Not being able to stop or control worryin = Not at all Worrying too much about different things: 0 = Not at all Trouble relaxin = Not at all Being so restless that it is hard to sit still: 0 = Not at all Becoming easily annoyed or irritable: 0 = Not at all Feeling afraid as if something awful might happen: 0 = Not at all Total SHAGUFTA-7 score (0-4 normal; 5-9 mild; 10-14 moderate; 15-21 severe): 0 Source: Developed by Drs. Domingo Estrada, Kayleigh Menjivar, Andrea Stevens and colleagues, with an educational salinas from [employer]. SHAGUFTA-7 Assessment Billing SHAGUFTA-7 Assessment Tool: SHAGUFTA-7 Assessment 24002 Review of Systems Const Reports as per HPI Physical exam (Primary Care) Vital Signs: Last Vital Signs Pulse 80 11/01/23 13:56 BP 122/78 11/01/23 13:56 Pulse Ox 97 11/01/23 13:56 BMI result Body Mass Index 34.6 Tobacco/Smoking Status: Tobacco use Status Tobacco use date assessed 08/13/23 11/01/23 13:59 Patient Tobacco Use Status Never used Tobacco 11/01/23 13:59 e-Cigarette/Vaping Use Never Used 11/01/23 13:59 PHQ-9: PHQ-9 Score PHQ-9: Total score 0 11/01/23 14:12 Depression Screening Interpretation: Negative Thrive Assessment: Date of Thrive Assessment Date Thrive assessed 08/13/23 11/01/23 13:59 Currently or been in a relationship where the following occur: I choose not to answer Const General: cooperative Nutritional Appearance: obese Orientation/consciousness: patient oriented x3 Resp Effort & Inspection: normal respiratory effort Auscultation: clear to auscultation bilaterally Cardio Rate: regular rate Rhythm: regular rhythm Heart sounds: S1 normal heart sound present and S2 normal heart sound present Neuro General: patient oriented x3 Extrem Other: bilat feet: + sensation with use of monofilament, feet intact Psych Appearance: grossly normal Mental Status: mental status grossly normal Speech and movement: Normal speech and movement present Affect: normal affect Attitude: cooperative Thought process: Normal thought process present Thought content: Normal thought content present Insight: Good insight present (Psych) Judgement: Good judgement present (Psych) Assessment and Plan Assessment & Plan (1) Type 2 diabetes mellitus: Code(s): E11.9 - Type 2 diabetes mellitus without complications Plan: seeing endo (2) Hypothyroid: Code(s): E03.9 - Hypothyroidism, unspecified Plan: decrease levo from 213 to 200mcg, repeat TSH in 2 months Plan The patient agreed to the use of a medical sales specialist for this encounter. Scribed for SUSAN Witt by Kate Sood medical sales specialist, on 11/01/2023 at 14:10 EST. Orders: Orders Comprehensive Met. Panel 2 Months E03.9 - Hypothyroidism, unspecified TSH reflex Free T4 2 Months E03.9 - Hypothyroidism, unspecified Coding Level of Care Code Est Pt Level 3 (72998) Diagnoses Type 2 diabetes mellitus E11.9 Hypothyroid E03.9 Additional Codes SHAGUFTA-7 Assessment Billing - SHAGUFTA-7 Assessment Tool: SHAGUFTA-7 Assessment 97703 ([id number])
== END 2023-11-01 14:31 | disposition home or self-care (01) ==
PROVIDERS: PCP Nurse Practitioner Family; Visit Provider Nurse Practitioner Family
DX: E11.9 Type 2 diabetes mellitus without complications (principal); E03.9 Hypothyroidism, unspecified
CPT/HCPCS: 99213

== ENCOUNTER → 2023-11-22 15:26 | Outpatient (BNVA) | payer OTHER, SELFPAY | PROVIDERS: PCP Nurse Practitioner Family ==

== ENCOUNTER 2023-11-26 12:54 | Outpatient (AMB) | payer OTHER, SELFPAY ==
--- NOTE | 2023-11-26 13:08 | A.OFFVIS_ITS ---
Vital Signs 11/26/23 13:10 Height 6 ft 4 in Weight 283 lb BMI 34.4 BP 116/57 L Blood Pressure Location Lt brachial Position Sitting Pulse 85 Intake Visit Reasons: Post-Op Lulu + New issue - ? Cirrhosis Intake Note: Yoandy presents in the office as a follow up colonoscopy. CC: He is not having any concerns at this time. Allergies No Known Allergies [No Known Allergies*] Allergy (Verified 11/26/23 13:11) HPI HPI Post-Op Lulu + New issue - ? Cirrhosis: Details: LAST VISIT Screening for colon cancer Patient denies any GI, cardiac or respiratory symptoms.? Denies any issues with anesthesia in the past.? Denies any history of sleep apnea.? No history infectious diseases in the past or present.? Not on any anticoagulation therapy.? No family or personal history of colon cancer or polyps.? Patient denies melena, hematochezia, unintentional weight loss or ribbon like stools.? Discussed at length the pre-procedure,? prep, diet & medications as well as what to expect prior, during and after the procedure.?? Stressed the importance of good bowel prep. ?Recommended the use of Vaseline or Calmoseptine OTC & baby wipes with bowel movements to promote comfort.? ?Patient verbalizes understanding and agrees to plan of care.? He was given the opportunity to ask questions and all questions answered.? We will see him after the procedure.? Plan Medications New bisacodyl (Dulcolax (bisacodyl)) Start taking 2 tablet every night 7 days before the procedure and 1 day before procedure take 2 tablets at noon time followed by MiraLax prep 10 mg (2 x 5 mg) PO BEDTIME 14 tabs 0RF Z12.11 polyethylene glycol 3350 (Miralax) As directed by gastroenterology department at [facility] 238 grams PO ONCE 238 grams 0RF Z12.11 COLONOSCOPY Findings: Terminal Ileum- superficially intubated and normal Cecum:normal Ascending Colon: 6-8 mm sessile polyp removed with cold snare Transverse Colon -normal Descending Colon:normal Sigmoid Colon: normal Rectum: Retroflexion with small internal hemorrhoids seen, grade I Anorectum - normal Intervention: cold snare Colon preparation: [place] Bowel Preparation Scale Right colon; 1-2 Transverse colon: 2 Left colon; 3 (0 = Unprepared colon segment with mucosa not seen due to solid stool that cannot be cleared. 1 = Portion of mucosa of the colon segment seen, but other areas of the colon segment not well seen due to staining, residual stool and/or opaque liquid. 2 = Minor amount of residual staining, small fragments of stool and/or opaque liquid, but mucosa of colon segment seen well. 3 = Entire mucosa of colon segment seen well with no residual staining, small fragments of stool or opaque liquid) Impression and Post Procedure Diagnosis: colon polyp internal hemorrhoids Plan: High fiber diet leaflet Avoid straining at stool, epsom salts and sitz bath, anusol supps or cream Repeat Colonoscopy in 5 years due to areas of fair prep on right or earlier if clinically indicated PATHOLOGY RESULTS Diagnosis Colon, ascending, polyp: Colonic mucosa with minimal hyperplastic changes and mild active inflammation; negative for adenomatous dysplasia TODAY'S VISIT Patient is here today for follow-up and to discuss his last visit in the ER. Patient had normal colonoscopy, no polyps found, however patient had suboptimal prep and was told to repeat colonoscopy in 5 years. Patient denies any family history of CRC. Patient was seen in July in the ER for jaundice. Patient was found to have nodular liver. MRI was done and showed enlarged nodular liver with increased echogenicity. Patient's liver enzymes were elevated, recently liver enzymes done as well as bilirubin and normal. Patient denies any abdominal pain or discomfort at that time. His lipase was normal. Patient has seen trains dispatcher supervisor in the past, patient was told to schedule appointment with her again. Low platelets in the past few years. Patient denies any nausea or vomiting. Patient states that he changed his diet when he went home from ER that day. Patient lost several lb. Is trying to go to the gym so we can do regular work out to lose weight. Patient denies any family history of liver cirrhosis or cancer. [facility] Medical History (Updated 11/26/23 @ 19:16 by Ivelisse D Antony, MULTIMEDIA PRODUCTION ASSISTANT-BC) Hepatomegaly Type 2 diabetes mellitus Fatty liver DM (diabetes mellitus), type 2 with ophthalmic complications Kidney stones Hypothyroid Surgical History (Updated 11/26/23 @ 13:11 by SARAHI Ellis) Hx of colonoscopy History of total right knee replacement (~09/2019) History of arthroscopy of right knee (~03/29/16) Family History Father Stroke Heart attack Low blood pressure Mother No problems noted. Daughter No problems noted. 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 Cognitive needs: No Hearing needs: No Vision needs: No Review of Systems Const Denies weight gain and Denies weight loss ENT Reports no additional complaints, Denies dysphagia and Denies odynophagia Card Reports no additional complaints Resp Reports no additional complaints GI Denies abdominal pain, Denies belching, Denies melena, Denies bloating, Denies change in bowel habits, Denies dysphagia, Denies excessive flatus, Denies dyspepsia, Denies heartburn, Denies diarrhea, Denies loose stools, Denies nausea, Denies odynophagia and Denies vomiting Reports no additional complaints Musc Reports no additional complaints Neuro Reports no additional complaints Psych Reports no additional complaints Endo Reports no additional complaints Physical Exam Vital Signs: Last Vital Signs Pulse 85 11/26/23 13:10 BP 116/57 L 11/26/23 13:10 BMI result Body Mass Index 34.4 Const General: healthy appearing and no acute distress Nutritional Appearance: obese Orientation/consciousness: patient oriented x3 Resp Effort & Inspection: normal respiratory effort, able to speak in complete sentences, no tracheal deviation and symmetric chest movement Auscultation: clear to auscultation bilaterally Cardio Rate: regular rate GI Inspection: Yes normal to inspection, No distended and Yes obesity Palpation (GI): Soft to palpation, not firm, nontender and No hepatosplenomegaly present Auscultation: normal bowel sounds General: Yes no CVA tenderness Back/Spine/Pelvis Back: no CVA tenderness Skin General skin exam: elasticity normal, turgor normal and dry skin Neuro General: patient oriented x3 Psych Appearance: grossly normal Mental Status: mental status grossly normal Results Reviewed Results Reviewed: ABDOMINAL MRI 10/22/2023 FINDINGS: LUNG BASES: No pleural or pericardial effusion. LIVER, GALLBLADDER, AND BILIARY TREE: The liver measures 20.1 cm in sagittal dimension. Hepatic steatosis. The liver surface is slightly nodular. No focus of arterial phase hyperenhancement or rapid washout. No biliary ductal dilatation is present. The gallbladder is unremarkable with no evidence of gallbladder wall thickening, or obvious pericholecystic inflammatory changes. PANCREAS: No ductal dilatation. SPLEEN: 14.7 cm in AP dimension. ADRENAL GLANDS: No adrenal mass. KIDNEYS AND URETERS: The kidneys are symmetric in size and enhancement. No hydronephrosis. No perinephric stranding. GASTROINTESTINAL TRACT: No bowel obstruction. No ascites or fluid collection. ABDOMINAL WALL: No significant hernia is appreciated. LYMPH NODES: Periportal and eriberto hepatis lymph nodes measure 1.3 x 2.4 cm, 1.2 x 1.7 cm, 1.2 x 1.9 cm and 1.5 x 2.6 cm. VASCULAR: Normal caliber abdominal aorta. MR/MR abdomen wo/w con IMPRESSION: Hepatosplenomegaly. Hepatic steatosis. Slight nodular surface contour of the liver. No suspicious hepatic lesion. Enlarged periportal and eriberto hepatis lymph nodes. Assessment & Plan Assessment & Plan (1) Hepatomegaly: Code(s): R16.0 - Hepatomegaly, not elsewhere classified Category: Medical (2) Transaminitis: Code(s): R74.01 - Elevation of levels of liver transaminase levels (3) Status post colonoscopy: Code(s): Z98.890 - Other specified postprocedural states Plan Will rule out autoimmune disorders, hemochromatosis, hepatitis study. Patient will follow-up with his trains dispatcher supervisor. Will check liver fibrosis panel and will order ultrasound with elastography. Low-fat, low-salt low carb and high- protein diet discussed with patient. Patient will try to exercise to lose weight. Follow-up in 6 months, sooner on as needed basis. Patient is agreeable to this plan and verbalizes understanding of instructions. He was given the opportunity to ask questions and all questions answered. Thank you for allowing me to participate in his care Orders: Orders Alpha Fetoprotein Today Ivelisse Hardy MULTIMEDIA PRODUCTION ASSISTANT-BC R79.89 - Other specified abnormal findings of blood chemistry Hepatitis A,B,C Profile Today Ivelisse Hardy MULTIMEDIA PRODUCTION ASSISTANT-BC R79.89 - Other specified abnormal findings of blood chemistry Ceruloplasmin Today Ivelisse Hardy MULTIMEDIA PRODUCTION ASSISTANT-BC R79.89 - Other specified abnormal findings of blood chemistry HIV Ab/Ag Today Ivelisse Hardy MULTIMEDIA PRODUCTION ASSISTANT-BC R79.89 - Other specified abnormal findings of blood chemistry IRON PROFILE Today Ivelisse Hardy MULTIMEDIA PRODUCTION ASSISTANT-BC D64.9 - Anemia, unspecified Mitochondrial Antibody Today Ivelisse Hardy MULTIMEDIA PRODUCTION ASSISTANT-BC R79.89 - Other specified abnormal findings of blood chemistry C Reactive Protein Today Ivelisse Hardy MULTIMEDIA PRODUCTION ASSISTANT-BC K58.9 - Irritable bowel syndrome, unspecified Prothrombin Time INR Today Ivelisse Hardy MULTIMEDIA PRODUCTION ASSISTANT-BC R74.8 - Abnormal levels of other serum enzymes US abdomen perez w elastography 5 Months Ivelisse Hardy MULTIMEDIA PRODUCTION ASSISTANT-BC K76.0 - Fatty (change of) liver, not elsewhere classified Smooth Muscle Antibody Today Ivelisse Hardy MULTIMEDIA PRODUCTION ASSISTANT-BC R79.89 - Other specified abnormal findings of blood chemistry Liver Fibrosis Pnl Today Ivelisse Hardy MULTIMEDIA PRODUCTION ASSISTANT-BC K76.0 - Fatty (change of) liver, not elsewhere classified Ferritin Today Ivelisse Hardy MULTIMEDIA PRODUCTION ASSISTANT-BC R74.8 - Abnormal levels of other serum enzymes Gamma Glutamyl Transpeptidase Today Ivelisse Hardy MULTIMEDIA PRODUCTION ASSISTANT-BC R74.8 - Abnormal levels of other serum enzymes Medications: Refilled lidocaine 5% leave on most painful area for up to 12 hrs 1 patch topical DAILY 30 ea 0RF Gonsalo Jean Baptiste, MULTIMEDIA PRODUCTION ASSISTANT-BC G89.29 - Other chronic pain, M54.50 - Low back pain, unspecified Coding Level of Care Code Est Pt Level 3 (44097) Diagnoses Hepatomegaly R16.0 Transaminitis R74.01 Status post colonoscopy Z98.890 Time Spent (min) 40 Comment 25 minutes spent with patient and additional 15 minutes spent reviewing his records
[2023-11-26 13:10] VITALS: BP 116/57; PULSE 85; BMI 34.4
== END 2023-11-26 13:51 | disposition home or self-care (01) ==
PROVIDERS: PCP Nurse Practitioner Family; Visit Provider Nurse Practitioner Family
DX: R16.0 Hepatomegaly, not elsewhere classified (principal); R74.01 Elevation of levels of liver transaminase levels; Z98.890 Other specified postprocedural states
CPT/HCPCS: 99213

== ENCOUNTER 2023-11-26 12:54 | Outpatient (REF) | payer OTHER, SELFPAY ==
[2023-11-26 14:30] LABS: INTERNATIONAL NORM RATIO 1.1 (0.9-1.1); Prothrombin Time 12.5 SEC (10.9-12.4)
[2023-11-26 14:39] LABS: C Reactive Protein < 0.10 mg/dL (< or = 0.50); Gamma Glutamyl Transpeptidase 96 U/L (11-51); Iron 93 mcg/dL (45-160); Percent Iron Saturation 30 % (15-50); Total Iron Binding Capacity 315 mcg/dL (228-428); Unsaturated Iron Binding 222 ug/dL
[2023-11-26 14:54] LABS: Ferritin 698 ng/mL (20-250)
[2023-11-27 08:28] LABS: HBS Num1 0.47 mIU/mL (0-7.99); HBc Num1 0.09 S/CO (0.00-0.79); HBsAGNum1 0.29 S/CO (0.00-0.99); HIV AB/AG Nonreactive (Nonreactive); HIV Num 1 0.05 S/CO (0.00-0.99); Hepatitis A Antibody IgM 0.15 Index (0-0.79); Hepatitis B Core Antibody Nonreactive (Nonreactive); Hepatitis B Surface Antigen Negative (Negative); ~HepC Num1 0.19 S/CO (0.00-0.79); ~Hepatitis A Antibody IgM Nonreactive (Nonreactive); ~Hepatitis B Surface Antibody NONREACTIVE (Nonreactive); ~Hepatitis C Antibody Nonreactive (Nonreactive)
[2023-11-27 18:19] LABS: Ceruloplasmin 21 mg/dL (14-30)
[2023-11-29 11:43] LABS: Mitochondrial Antibodies NEGATIVE (NEGATIVE)
[2023-11-30 13:22] LABS: Smooth Muscle Antibody <20 U (<20)
[2023-12-01 18:18] LABS: FIB-ALT 23 U/L (9-46); FIB-Alpha-2-Macroglobulin 354 mg/dL (106-279); FIB-Apolipoprotein A1 148 mg/dL (94-176); FIB-GGT 80 U/L (3-95); FIB-Haptoglobin 84 mg/dL (43-212); Liver Fibrosis Score 0.82; Liver Fibrosis Stage F4; Nec Inflam Act Grade A0-A1; Nec Inflam Act Score 0.19
== END 2023-11-26 12:55 | disposition home or self-care (01) ==
LOC: HO.LAB 12:54
PROVIDERS: PCP Nurse Practitioner Family; Visit Provider Nurse Practitioner Family
DX: Z98.890 Other specified postprocedural states (principal); R79.89 Other specified abnormal findings of blood chemistry; K58.9 Irritable bowel syndrome, unspecified; R74.8 Abnormal levels of other serum enzymes; K76.0 Fatty (change of) liver, not elsewhere classified; D64.9 Anemia, unspecified; R16.0 Hepatomegaly, not elsewhere classified; R74.01 Elevation of levels of liver transaminase levels
CPT/HCPCS: 36415; 81596; 82105; 82390; 82728; 82977; 83540; 85610; 86015; 86140; 86381; 86704; 86706; 86709; 86803; 87340; 87389; 99212

== ENCOUNTER 2023-12-12 12:54 | Outpatient (AMB) | payer OTHER, SELFPAY ==
[2023-12-12 13:14] VITALS: BMI 34.5
--- NOTE | 2023-12-12 13:14 | A.OFFVIS_ITS ---
VS Expanded 12/12/23 13:14 12/13/23 13:21 Height 6 ft 4 in 6 ft 4 in Weight 283 lb 1.176 oz 283 lb BMI 34.5 34.4 Intake Visit Reasons: T2DM/CONFIRMED Allergies No Known Allergies [No Known Allergies*] Allergy (Verified 11/26/23 13:11) Nutrition Presentation Details: Pt presents for MNT for T2DM Pt reports working on diet modifications , getting educated and monitoring bg , working at maintaining good glucose control, reports bg ranging from 120-140s Pt is motivated Pt wants to work on weight loss and meal planning BS Monitoring Most Recent Diabetes Results: Creatinine 0.80 mg/dL (0.5-1.4) 10/31/23 Blood Urea Nitrogen 19 mg/dL (9-16) H 10/31/23 Sodium 143 mmol/L (135-145) 10/31/23 Potassium 4.6 mmol/L (3.3-5.1) 10/31/23 Chloride 109 mmol/L (96-108) H 10/31/23 Carbon Dioxide 26 mmol/L (22-29) 10/31/23 Calcium 10.0 mg/dL (8.4-10.2) 10/31/23 AST 31 U/L (5-37) 10/31/23 ALT 32 U/L (0-40) 10/31/23 Total Protein 7.3 g/dL (6.5-8.0) 10/31/23 Albumin 4.3 g/dL (3.5-5.0) 10/31/23 CKW-Iuzroab-Yu.Jeor Equation Height: 6 ft 4 in Weight: 283 lb Resting Metabolic Rate: 2257.72 Calculated Activity Level: Moderate Activity Calories Needed to Maintain Weight: 3499.47 Diagnosis Nutrition problem #1: food nutri know defi As related to (etiology) #1: diagnosis As evidenced by (sign/symptom) #1: knowledge deficit of diet [facility] Medical History (Updated 11/30/23 @ 13:57 by CARSON Purcell-) Hepatomegaly Type 2 diabetes mellitus Fatty liver DM (diabetes mellitus), type 2 with ophthalmic complications Kidney stones Hypothyroid Surgical History (Updated 11/26/23 @ 13:11 by SARAHI Ellis) Hx of colonoscopy History of total right knee replacement (~09/2019) History of arthroscopy of right knee (~03/29/16) Family History Father Stroke Heart attack Low blood pressure Mother No problems noted. Daughter No problems noted. 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 Cognitive needs: No Hearing needs: No Vision needs: No Assessment & Plan Assessment & Plan (1) Type 2 diabetes mellitus: Code(s): E11.9 - Type 2 diabetes mellitus without complications Category: Medical Plan: Wt: 129 Kg (12/19 ) Est kcal needs as per MSJ: 3500 (40% carb, 30% protein/fat) Est fluid needs as per 25-30 ml/d: 3900 Est prot per day as per 1 g/kg bw: 129 Recommend fiber intake : 8-10 g per day and gradually increase to 25-28 g per day for women and 35-38 g for men or as tolerated Recommend sodium intake per day : less than 2300 mg Educated patient on: ( R = reviewed V = verbalizes understanding N/R = needs review N/A = not applicable * Food sources of carbohydrate, adequate serving sizes and its role in various health conditions: R V * Differences between complex carbohydrates a simple carbohydrates, role of fiber in diet: R V * Lean protein sources of foods: R V * Differences between types of fats and role in diet (mono on saturated fat fatty acids, saturated fatty acids, trans fats): R * Food sources of sodium in salt and healthy modifications for heart health in kidney health: R V R/V * Vitamins and minerals: R V N/R * Healthy plate method concept: R * Physical activity: Benefits a precaution: R V N/R * Hypoglycemia protocol (rule of 15): R * Dietary prevention of Hyperglycemia: R Patient Instructions: Continue working on following healthy plate method , less than 100 g of carb per meal Work on following healthy plate method reducing on amount of fats in the foods Coding Level of Care Code Nutr Indiv Intake (08965) Diagnoses Type 2 diabetes mellitus E11.9 Time Spent (min) 30
[2023-12-13 13:21] VITALS: BMI 34.4
== END 2023-12-12 14:13 | disposition home or self-care (01) ==
PROVIDERS: PCP Nurse Practitioner Family; Visit Provider Dietitian, Registered
DX: E11.9 Type 2 diabetes mellitus without complications (principal)

== ENCOUNTER → 2023-12-12 12:54 | Outpatient (BNVA) | payer OTHER, SELFPAY | PROVIDERS: PCP Nurse Practitioner Family; Visit Provider Dietitian, Registered | DX: E11.9 Type 2 diabetes mellitus without complications (principal) | CPT/HCPCS: 97802 ==

== ENCOUNTER 2024-01-02 15:00 | Outpatient (AMB) | payer OTHER, SELFPAY ==
--- NOTE | 2024-01-02 15:07 | A.OFFVIS_ITS ---
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 He was seen as an initial consult 10/02/2023. A1C had been in reasonable control until July 2023 when it increased to 11%. His PCP had adjusted his medication prior to his endocrine visit. Since his initial consult he has met with the RD in the clinic and has made major modifications in his diet and has lost approximately 14 lb in 3 months. A1C 5.3% 01/02/24. He reduced his metformin ER to once daily due to GI intolerance and has been doing much better with this dose. Initially diagnosed with T2DM in [2020]. Was initially started on treatment with [metformin 500mg bid Treatment was intensified this July.]. Current regimen Jardiance 10 mg, metformin ER 1000 mg daily, januvia 25mg Checks sugars [4] times per day. Range: 95-130 tests different times of the day Reports low sugars [no]. Treats lows with has skittles with him but has never needed. Denies retinopathy: Has eyes checked yearly, last eye exam 09/2023 Denies neuropathy, last foot exam 09/2023 does not see podiatry. Denies numbness, tingling or cramping lower extremities [Denies] nephropathy, on [ROCKY/ARB]. No microalbuminuria [Has] HLD, on [statin, low dose]. Last LDL [94] as measured on [08/12]. [Denies] CAD. Followed by GI medicine and has had fatty liver workup. Has hypothyroidism followed by his PCP and had recent reduction in tirosint to 200 mcg. 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 Once in the past has recently seen Elzibeta Limon RD [facility] Medical History (Updated 12/18/23 @ 14:52 by Mercedes Jackson MD) Hepatomegaly Type 2 diabetes mellitus Fatty liver DM (diabetes mellitus), type 2 with ophthalmic complications Kidney stones Hypothyroid Surgical History (Updated 12/18/23 @ 14:52 by Mercedes Jackson MD) Hx of colonoscopy History of total right knee replacement (~09/2019) History of arthroscopy of right knee (~03/29/16) Family History Father Stroke Heart attack Low blood pressure Mother No problems noted. Daughter No problems noted. 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 Cognitive needs: No Hearing needs: No Vision needs: No Physical Exam Vital Signs: Last Vital Signs Pulse 84 01/02/24 15:14 BP 122/80 01/02/24 15:14 BMI result Body Mass Index 33.5 Results AMB Hemoglobin A1c AMB Hemoglobin A1c 5.3 % Last Edit by SARAHI Hearn on 01/02/24 15:27 Results Reviewed Results Reviewed: Laboratory Last Values Glucose (Clinic) 107 mg/dL (60-115) 01/02/24 15:16 Assessment & Plan Assessment & Plan (1) Hypothyroid: Code(s): E03.9 - Hypothyroidism, unspecified Category: Medical Plan: Requested MA to contact patient to recheck tsh free t4 as he had an adjustment by PCP due to high free t4. Lab order placed (2) Diabetes: Code(s): E11.9 - Type 2 diabetes mellitus without complications Category: Medical Plan: 48-year-old type 2 diabetic with no macro/macrovascular complications of diabetes with a recent A1c of 5.3%. He has met with the steward/stewardess chief cargo vessel in his modified his diet and has done with what well with weight loss. Continue metformin and Jardiance and discontinue Januvia. Continue positive lifestyle changes The patient had an opportunity to ask questions regarding treatment plan. The patient expressed understanding and agreement with the above treatment plan. The patient is aware they should contact our office by phone for worsening glucose readings or for any low blood sugars which may warrant a change in diabetes medication. Compliance is encouraged with medications and any followup testing/consults which may have been ordered. Orders: Orders AMB Hemoglobin A1c Today E11.9 - Type 2 diabetes mellitus without complications Thyroid Stimulating Hormone 4 Weeks E03.9 - Hypothyroidism, unspecified Free T4 (Free Thyroxine) 4 Weeks E03.9 - Hypothyroidism, unspecified Medications: On Hold sitagliptin phosphate (Januvia) Hold Comment: Doctor's Order 25 mg PO DAILY 90 days 90 tabs 3RF Patient Instructions: The patient was counseled to achieve a target A1C of 7% (154 avg). Fasting blood sugars should be 90-130 in the morning and less than 180 two hours after meals. Reviewed the relationship between poor diabetic control and the development of complications. Carry a sugar source Coding Level of Care Code Est Pt Level 3 (22558) Complex EM visit Add On G2211 Diagnoses Hypothyroid E03.9 Diabetes E11.9 Time Spent (min) 20 Comment Time spent reviewing labs/provider notes, face to face, chart doc
[2024-01-02 15:14] VITALS: BP 122/80; PULSE 84; BMI 33.5
[2024-01-02 15:22] LABS: Glucose, Whole Blood 107 mg/dL (60-115)
== END 2024-01-02 15:37 | disposition home or self-care (01) ==
LOC: HO.ENCR 15:00
PROVIDERS: PCP Nurse Practitioner Family; Visit Provider Nurse Practitioner Adult Health
DX: E03.9 Hypothyroidism, unspecified (principal); E11.9 Type 2 diabetes mellitus without complications
CPT/HCPCS: 99213; G2211

== ENCOUNTER → 2024-01-02 15:00 | Outpatient (BNVA) | payer OTHER, SELFPAY | PROVIDERS: PCP Nurse Practitioner Family; Visit Provider Nurse Practitioner Adult Health | DX: E03.9 Hypothyroidism, unspecified (principal); E11.9 Type 2 diabetes mellitus without complications | CPT/HCPCS: 82947; 83036; 99212 ==

== ENCOUNTER 2024-01-16 08:46 | Outpatient (REF) | payer OTHER, SELFPAY ==
[2024-01-16 10:49] LABS: Alanine Aminotransferase 35 U/L (0-40); Albumin Level 4.3 g/dL (3.5-5.0); Alkaline Phosphatase 68 U/L (39-117); Anion Gap 11 (12-20); Aspartate Amino Transferase 37 U/L (5-37); Bilirubin Total 2.5 mg/dL (0.0-1.0); Blood Urea Nitrogen 18 mg/dL (9-16); Calcium 9.6 mg/dL (8.4-10.2); Carbon Dioxide 26 mmol/L (22-29); Chloride 108 mmol/L (96-108); Estimated Glomerular Filt Rate > 60; Glucose Random 165 mg/dL (60-115); Potassium 4.4 mmol/L (3.3-5.1); Sodium 141 mmol/L (135-145); TSH reflex Free T4 < 0.01 uIU/mL (0.32-4.0); Total Protein 7.1 g/dL (6.5-8.0)
[2024-01-16 11:32] LABS: Free T4 (Free Thyroxine) 1.28 ng/dL (0.71-1.85)
== END 2024-01-16 08:47 | disposition home or self-care (01) ==
LOC: HO.HMGCLDS 08:46
PROVIDERS: PCP Nurse Practitioner Family; Visit Provider Nurse Practitioner Family
DX: E03.9 Hypothyroidism, unspecified (principal)
CPT/HCPCS: 36415; 80053; 84439; 84443

== ENCOUNTER → 2024-01-23 14:38 | Outpatient (AMB) | payer OTHER, SELFPAY ==
--- NOTE | 2024-01-23 14:42 | A.OFFVIS_ITS ---
VS Expanded 01/23/24 14:42 Weight 269 lb 2.951 oz Intake Visit Reasons: T2DM/CONFIRMED Allergies No Known Allergies [No Known Allergies*] Allergy (Verified 12/18/23 14:43) Nutrition Presentation Details: Pt presents for MNt for T2DM Pt reports working on diet modifications, feeling good, energetic. He denies having hypoglycemia, denies constipation , diarrhea. Pt has questions regarding thyroid levels in recent labs- Pt was advised to discuss these questions with endocrinology provider and a message was sent to endocrinology provider for further evaluation. BS Monitoring Most Recent Diabetes Results: Creatinine 0.77 mg/dL (0.5-1.4) 01/16/24 Blood Urea Nitrogen 18 mg/dL (9-16) H 01/16/24 Sodium 141 mmol/L (135-145) 01/16/24 Potassium 4.4 mmol/L (3.3-5.1) 01/16/24 Chloride 108 mmol/L (96-108) 01/16/24 Carbon Dioxide 26 mmol/L (22-29) 01/16/24 Calcium 9.6 mg/dL (8.4-10.2) 01/16/24 AST 37 U/L (5-37) 01/16/24 ALT 35 U/L (0-40) 01/16/24 Total Protein 7.1 g/dL (6.5-8.0) 01/16/24 Albumin 4.3 g/dL (3.5-5.0) 01/16/24 [facility] Medical History (Updated 12/18/23 @ 14:52 by Mercedes Jackson MD) Hepatomegaly Type 2 diabetes mellitus Fatty liver DM (diabetes mellitus), type 2 with ophthalmic complications Kidney stones Hypothyroid Surgical History (Updated 12/18/23 @ 14:52 by Mercedes Jackson MD) Hx of colonoscopy History of total right knee replacement (~09/2019) History of arthroscopy of right knee (~03/29/16) Family History Father Stroke Heart attack Low blood pressure Mother No problems noted. Daughter No problems noted. 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 Cognitive needs: No Hearing needs: No Vision needs: No Assessment & Plan Assessment & Plan (1) Type 2 diabetes mellitus: Code(s): E11.9 - Type 2 diabetes mellitus without complications Category: Medical Plan: Wt: 129 Kg (12/19 ), 122 kg (12/2023) Est kcal needs as per MSJ: 3500 (40% carb, 30% protein/fat) Est fluid needs as per 25-30 ml/d: 3900 Est prot per day as per 1 g/kg bw: 129 Recommend fiber intake : 8-10 g per day and gradually increase to 25-28 g per day for women and 35-38 g for men or as tolerated Recommend sodium intake per day : less than 2300 mg Educated patient on: ( R = reviewed V = verbalizes understanding N/R = needs review N/A = not applicable * Food sources of carbohydrate, adequate serving sizes and its role in various health conditions: R V * Differences between complex carbohydrates a simple carbohydrates, role of fiber in diet: R V * Lean protein sources of foods: R V * Differences between types of fats and role in diet (mono on saturated fat fatty acids, saturated fatty acids, trans fats): R * Food sources of sodium in salt and healthy modifications for heart health in kidney health: R * Healthy plate method concept: R * Physical activity: Benefits a precaution: R * Hypoglycemia protocol (rule of 15): R * Dietary prevention of Hyperglycemia: R Patient Instructions: Continue working on following healthy plate method , choosing low fat food options Try vegetarian meals engage in physical activity , 30 minute 3 times a week and graudally increase to 60 min 3 times/wk Coding Level of Care Code Nutr Indiv Subseq (01946) Diagnoses Type 2 diabetes mellitus E11.9 Time Spent (min) 30
== END ==
PROVIDERS: PCP Nurse Practitioner Family; Visit Provider Dietitian, Registered
DX: E11.9 Type 2 diabetes mellitus without complications (principal)

== ENCOUNTER → 2024-01-23 14:38 | Outpatient (BNVA) | payer OTHER, SELFPAY | PROVIDERS: PCP Nurse Practitioner Family; Visit Provider Dietitian, Registered | DX: E11.9 Type 2 diabetes mellitus without complications (principal) | CPT/HCPCS: 97803 ==

== ENCOUNTER 2024-04-08 07:55 | Outpatient (REF) | payer OTHER, SELFPAY | END 2024-04-08 07:56 | disposition home or self-care (01) | LOC: HO.US 07:55 | PROVIDERS: PCP Nurse Practitioner Family; Visit Provider Nurse Practitioner Family | DX: K76.0 Fatty (change of) liver, not elsewhere classified (principal) | CPT/HCPCS: 76705; 76981 ==

== ENCOUNTER → 2024-04-08 07:55 | Outpatient (BNV) | payer OTHER, SELFPAY | PROVIDERS: PCP Nurse Practitioner Family; Visit Provider Radiology Diagnostic Radiology | DX: K76.0 Fatty (change of) liver, not elsewhere classified (principal) | CPT/HCPCS: 76705 ==

== ENCOUNTER 2024-04-28 13:36 | Outpatient (AMB) | payer OTHER, SELFPAY ==
--- NOTE | 2024-04-28 13:39 | MHC.OFFVIS ---
Vital Signs 04/28/24 13:40 Height 6 ft 4 in Weight 275 lb 2.19 oz BMI 33.5 BP 126/74 Blood Pressure Location Rt brachial Position Sitting Pulse 70 Pulse Source Pulse Oximeter Pulse Oximetry (%) 99 Oxygen Delivery Method Room Air Intake Visit Reasons: Other spec. abnormal findings of blood chemistry Intake Note: ESTABLISHED PATIENT for hepatomegaly mgmt. Labs done. Chief Complaint; Pt denies any GI concerns at this time. Pt has stopped taking senna on account of not needing the medication anymore. Condition has greatly improved since last visit. 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 abnormal findings of blood chemistry: Details: LAST VISIT: Hepatomegaly Transaminitis Status post colonoscopy Plan Will rule out autoimmune disorders, hemochromatosis, hepatitis study. Patient will follow-up with his concession cashier. Will check liver fibrosis panel and will order ultrasound with elastography. Low-fat, low-salt low carb and high-protein diet discussed with patient. Patient will try to exercise to lose weight. Follow-up in 6 months, sooner on as needed basis. Patient is agreeable to this plan and verbalizes understanding of instructions. He was given the opportunity to ask questions and all questions answered. ? Thank you for allowing me to participate in his care Orders Orders Alpha Fetoprotein Today Ivelisse Hardy, DIESEL ROLLER OPERATOR-BC R79.89 Hepatitis A,B,C Profile Today Ivelisse Kirby Rendono, DIESEL ROLLER OPERATOR-BC R79.89 Ceruloplasmin Today Ivelisse Kirby Rendono, DIESEL ROLLER OPERATOR-BC R79.89 HIV Ab/Ag Today Ivelisse Kirby Antony, DIESEL ROLLER OPERATOR-BC R79.89 IRON PROFILE Today Ivelisse Kirby Rendono, DIESEL ROLLER OPERATOR-BC D64.9 Mitochondrial Antibody Today Ivelisse Kirby Rendono, DIESEL ROLLER OPERATOR-BC R79.89 C Reactive Protein Today Ivelisse Kirby Rendono, DIESEL ROLLER OPERATOR-BC K58.9 Prothrombin Time INR Today Ivelisse Kirby Rendono, DIESEL ROLLER OPERATOR-BC R74.8 US abdomen perez w elastography 5 Months Ivelisse Hardy, DIESEL ROLLER OPERATOR-BC K76.0 Smooth Muscle Antibody Today Ivelisse Kirby Rendono, DIESEL ROLLER OPERATOR-BC R79.89 Liver Fibrosis Pnl Today Ivelissedave Rendono, DIESEL ROLLER OPERATOR-BC K76.0 Ferritin Today Ivelisse Hardy, [facility]-BC R74.8 Gamma Glutamyl Transpeptidase Today Ivelisse Hardy [facility]-BC R74.8 Medications Refilled lidocaine 5% leave on most painful area for up to 12 hrs 1 patch topical DAILY 30 ea 0RF Gonsalo Jean Baptiste, [facility]-BC G89.29, M54.50 TODAY'S VISIT Patient is here today for follow-up and to discuss lab and ultrasound results. Ultrasounds results discussed with patient as well as lab results. Labs were done back in October. Patient has lost quite a bit of weight since. Liver fibrosis panel showed stage F4 and elastography was probably not a good sample. We will repeat elastography again in 6 months. Patient reports to be feeling well. Last 40 lb in the year. Trying to exercise and eat well. Patient no longer is drinking alcohol. He is not eating anything salty. Patient is not drinking soda. Low carb low-fat low-salt diet. Patient denies any dyspepsia, dysphagia or odynophagia. Denies melena, hematochezia, unintentional weight loss or ribbon like stools. Patient reports to be feeling well [facility] Medical History Hepatomegaly Type 2 diabetes mellitus Fatty liver DM (diabetes mellitus), type 2 with ophthalmic complications Kidney stones Hypothyroid Surgical History Hx of colonoscopy History of total right knee replacement (~09/2019) History of arthroscopy of right knee (~03/29/16) Family History Father Stroke Heart attack Low blood pressure Mother No problems noted. Daughter No problems noted. 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 Cognitive needs: No Hearing needs: No Vision needs: No Review of Systems Const Denies weight gain and Denies weight loss ENT Reports no additional complaints, Denies dysphagia and Denies odynophagia Card Reports no additional complaints Resp Reports no additional complaints GI Denies abdominal pain, Denies belching, Denies melena, Denies bloating, Denies change in bowel habits, Denies dysphagia, Denies excessive flatus, Denies dyspepsia, Denies heartburn, Denies diarrhea, Denies loose stools, Denies nausea, Denies odynophagia and Denies vomiting Reports no additional complaints Musc Reports no additional complaints Neuro Reports no additional complaints Psych Reports no additional complaints Endo Reports no additional complaints Physical Exam Vital Signs: Last Vital Signs Pulse 70 04/28/24 13:40 BP 126/74 04/28/24 13:40 Pulse Ox 99 04/28/24 13:40 Oxygen Delivery Method Room Air 04/28/24 13:40 BMI result Body Mass Index 33.5 Const General: healthy appearing and no acute distress Nutritional Appearance: obese Orientation/consciousness: patient oriented x3 Resp Effort & Inspection: normal respiratory effort, able to speak in complete sentences, no tracheal deviation and symmetric chest movement Auscultation: clear to auscultation bilaterally Cardio Rate: regular rate GI Inspection: Yes normal to inspection, No distended and Yes obesity Palpation (GI): Soft to palpation, not firm, nontender and No hepatosplenomegaly present Auscultation: normal bowel sounds General: Yes no CVA tenderness Back/Spine/Pelvis Back: no CVA tenderness Skin General skin exam: elasticity normal, turgor normal and dry skin Neuro General: patient oriented x3 Psych Appearance: grossly normal Mental Status: mental status grossly normal Results Reviewed Results Reviewed: Laboratory Tests 10/31/23 11/26/23 01/02/24 06:50 13:55 15:19 Plt Count 110 L PT 12.5 H INR 1.1 Hgb A1c (Clinic) 5.3 Ferritin 698 H AST ALT Alkaline Phosphatase Liver Fibrosis Stage F4 C-Reactive Protein < 0.10 Ceruloplasmin 21 01/16/24 08:51 Plt Count PT INR Hgb A1c (Clinic) Ferritin AST 37 ALT 35 Alkaline Phosphatase 68 Liver Fibrosis Stage C-Reactive Protein Ceruloplasmin Laboratory Tests 11/26/23 13:55 Anti-Mitochondrial Ab NEGATIVE Anti-Smooth Muscle Ab <20 Hepatitis A IgM Ab Nonreactive Hep Bs Antigen Negative Hep Bs Antibody NONREACTIVE Hep B Core Total Ab Nonreactive Hepatitis C Ab (EIA) Nonreactive HIV 1&2 Ab/P24 Ag 4thGn Nonreactive US WITH ELASTOGRAPHY: FINDINGS: Liver: The right lobe of the liver measures 16.9 cm in size. The left lobe of the liver measures 11.9 cm in size. The liver demonstrates increased echotexture, consistent with steatosis. No focal mass or intrahepatic biliary ductal dilatation is identified. Ultrasound elastography of the liver was performed with 10 separate measurements of the liver parenchyma with the patient in the supine position. Measurements were obtained approximately 2 cm below Pedro's capsule and perpendicular to the capsule. Images are of satisfactory quality. The median shear wave velocity is 1.92 m/s. The interquartile range/median (IQR/median) is 0.15. Gallbladder and biliary tree: The gallbladder is unremarkable, without evidence of calculi, wall thickening, or pericholecystic fluid. There is no sonographic Hilton sign. The common bile duct is normal in caliber measuring 3 mm. Right Kidney: The right kidney measures 11.7 cm in length. The right kidney is unremarkable, without evidence of masses, hydronephrosis, or calculi. Pancreas: The pancreatic head, neck, and body are unremarkable. The pancreatic tail is obscured by bowel gas. Abdominal aorta and inferior vena cava: The visualized portions of the abdominal aorta and inferior vena cava are normal in caliber. There is no free fluid in the right upper quadrant. US/US abdomen perez w elastography IMPRESSION: Hepatomegaly and hepatic steatosis. The median shear wave velocity is 1.92 m/s, corresponding to a median liver stiffness of 11.35 kPa. The IQR/median value is 0.15. This is indicative of a poor quality data set, and the estimated liver stiffness may be unreliable. Findings are indicative of a high elastography value suggestive of advanced chronic liver disease. Assessment & Plan Assessment & Plan (1) Hepatomegaly: Code(s): R16.0 - Hepatomegaly, not elsewhere classified Category: Medical (2) Hepatic steatosis: Code(s): K76.0 - Fatty (change of) liver, not elsewhere classified (3) Liver fibrosis: Code(s): K74.00 - Hepatic fibrosis, unspecified Plan Patient has normal liver enzymes. Liver fibrosis F4, most likely elastography sample accurate. Patient was encouraged to continue weight loss and exercise. Continue low-fat, low carb, low salt and high protein diet. We will repeat blood work again in 5 months. Will repeat elastography and next visit patient will be sent for another ultrasound. He is agreeable to current plan of care and verbalizes understanding of instructions. He was given the opportunity to ask questions and all questions answered. Thank you for allowing me to participate in his care Orders: Orders Liver Panel 5 Months E66.9 - Obesity, unspecified Coding Level of Care Code Est Pt Level 4 (16802) Complex EM visit Add On G2211 Diagnoses Hepatomegaly R16.0 Hepatic steatosis K76.0 Liver fibrosis K74.00 Time Spent (min) 35 Comment 20 minutes spent with patient and additional 15 minute spent reviewing his records
[2024-04-28 13:40] VITALS: BP 126/74; PULSE 70; O2SAT 99; BMI 33.5
--- OUTSIDE RECORDS SUMMARY | 2024-04-28 16:05 | XMS_ITS | Data Portability ---
Author Organization [place] - [facility] [id number] Address [address] [place] [address] Assessment No assessment recorded. Plan of Treatment Reminders Order Date Submit Date Provider Last Modified By Organization Details Last Modified Time Details Appointments None record ed. Lab None record ed. Referral None record ed. Procedures None record ed. Surgeries None record ed. Imaging None record ed. Medication Orders None record ed. Patient TargetsNo targets recorded. Patient InstructionsNo instructions recorded. Reason for Referral None Reported. Results Created Date Observation Date Name Description Value Unit Range Abnormal Flag Note LastModifiedBy Organization Detail LastModifiedTime Result Notes None recorded. Problems Name Problem SNOMED Code Status Onset Date Resolution Date Notes Provider Name and Address Organization Details Recorded Time Diabetes mellitus [id number] Active Sparkle Oreminea edith, [place] - [facility] 4 10:53:58 Problem Notes None recorded. Procedures Surgical History Date Name Laterality Status Provider Name and Address Organization Details Recorded Time 4 OC-UDS Send Out Template NON DOT completed Sparkle Oreminea PA - [facility] 01/16/2024 11:01:18 4 OC-DOT PHYSICAL completed Sparkle Oreminea PA - [facility] 01/16/2024 10:51:17 Imaging Results None recorded. Procedure Notes None recorded. Medical Equipment None Reported. Allergies No known drug allergies Medications Name Sig Start Date Stop Date Status Note LastModified by Organization Details LastModified Time metformin active Not Available Not Tenisha ilable Not Available Jardiance active Not Available Not Tenisha ilable Not Available Vitals Date Recorded Body height Body temperature Oxygen saturation Oxygen saturation in Arterial blood by Pulse oximetry Heart rate Respiratory rate Body mass index (BMI) Body weight Systolic blood pressure Diastolic blood pressure Provider Name and Address Organization Details Last Updated DateTime 193.04 cm 97.9 [degF] 99 % 99 % 64 /min 16 /min 33.2 kg/m2 726649. 72 g 138 mm[Hg] 86 mm[Hg] Sparkle Oreminea PA - [facility] 10:51:52 Social History Question Answer Notes LastModified by Organizat ion Details LastModified Time Tobacco Smoking Status Never Smoker Sparkle Oreminea edith [place] - [facility] 01/16/2024 10:54:13 What Is Your Level Of Alcohol Consumption? None Information not available 01/16/2024 Have You Had A Flu Shot This Season? No Information not available 01/16/2024 If No, Would You Like A Flu Shot Today? No Information not available 01/16/2024 Do You Use Any Illicit Or Recreational Drugs? No Information not available 01/16/2024 Have You Recently Traveled Abroad? No Information not available 01/16/2024 Do You Or Have You Ever Used Any Other Forms Of Tobacco Or Nicotine? No Information not available 01/16/2024 Sex: Unknown Functional Status None recorded. Mental Status None recorded. Family History Nothing Reported. Medical History No medical history recorded. Past Encounters Encounter ID Performer Location Encounter Start Date Encounter Closed Date Diagnosis/Indication Diagnosis SNOMED-CT Code Diagnosis ICD10 Code Diagnosis [facility] [id number] [address] [address] [place] [address] 03/02/2021 08:39:21 03/02/2021 12:07:20 [id number] ROB[place] Stephen [id number] [facility] [address] [place] [address] 01/16/2024 10:31:17 01/16/2024 11:27:13 History and physical examination, occupation 079833265 Z02.1 The patient was given a 1 year DOT certificat ion given. Controlled DM2 Refer to scanned DOT physical exam forms and DOT certificat e for exam findings. 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
--- OUTSIDE RECORDS SUMMARY | 2024-04-28 16:05 | XMS_ITS | Encounter Summary ---
Author Organization [employer] Address [address] [place] [address] [address] [place] [address] Care Team Providers Care Range Technician Name Role Phone Unavailable Primary Care Provider Unavailabl e Encounter Details Date Type Department Care Team (Latest Contact Info) Description 10/09/2018 Abstract [facility] CONVERSIONS Dental, Provider, DDS Social History Tobacco Use Types Packs/Day Years Used Date Smoking Tobacco: Never Assessed Sex and Gender Information Value Date Recorded Sex Assigned at Male 12/26/2021 10:25 AM EDT Legal Sex Male 10:25 AM EDT Gender Identity Male 12/26/2021 10:25 AM EDT Sexual Orientation Straight 12/26/2021 10 :25 AM EDT documented as of this encounter Plan of Treatment Upcoming Encounters Date Type Department Care Team (Late st Contact Info) Description 05/07/2024 10:00 AM EDT Office Visit [facility] [address] [place] [address] Marcial Tamez 05/14/2024 10:00 AM EDT Office Visit [facility] [address] [place] [address] Edison Infante, DMD [address] [place] [address] documented as of this encounter Visit Diagnoses Not on filedocumented in this encounter
--- OUTSIDE RECORDS SUMMARY | 2024-04-28 16:05 | XMS_ITS | Clinical Summary ---
Author Organization [facility] Address [address] [place] [address] [address] [place] [address] Care Team Providers Care Bluing Oven Tender Name Role Phone Unavailable Primary Care Provider Unavailabl e Allergies No known active allergies Medications levothyroxine (Synthroid, Levoxyl) 200 MCG tablet Take 200 mcg by mouth Once per day. Active metFORMIN XR (Glucophage-XR) 500 MG 24 hr tablet Take 500 mg by mouth 2 times daily. 4 Active cyclobenzaprine (Flexeril) 10 MG tablet Take 10 mg by mouth at bedtime. 4 Active atorvastatin (Lipitor) 10 MG tablet Take 10 mg by mouth Once per day. 4 Active cholecalciferol (Vitamin D-3) 50 MCG (1999) tablet TAKE 1 TABLET (50 MCG) ORALLY DAILY 4 Active Jardiance 10 MG 10 MG ORALLY DAILY FOR 90 DAYS 4 Active Ferrocite 324 MG tablet TAKE 1 TABLET (324 MG) ORALLY DAILY 4 Active Januvia 25 MG tablet Take 25 mg by mouth Once per day. 4 Active acetaminophen (Tylenol) 500 MG tablet Take 1 tablet (500 mg) by mouth every 6 (six) hours if needed for mild pain for up to 20 doses. 20 tablet 4 Active ibuprofen 600 MG tablet Take 1 tablet (600 mg) by mouth every 6 (six) hours if needed for mild pain for up to 20 doses. 20 tablet 4 Active chlorhexidine (Peridex) 0.12 % solution Swish 15 mL morning and night for 1 minute. Spit, do not swallow. Do not eat or drink for 30 minutes following use. 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 Encounters Date Type Department Care Team Description 03/19/2024 Telephone [facility] [address] [place] [address] Marcial Tamez insurance 01/31/2024 Telephone [facility] [address] [place] [address] Carlos Cerna DDS from Last 3 Months Social History Tobacco Use Types Packs/Day Years Used Date Smoking Tobacco: Never Smokeless Tobacco: Never Tobacco Cessation:Counseling Given: Not Answered Alcohol Use Standard Drinks/Week Comments Defer 0 (1 standard drink = 0.6 oz pur e alcohol) Sex and Gender Information Value Date Recorded Sex Assigned at Male 12/26/2021 10:25 AM EDT Legal Sex Male 10:25 AM EDT Gender Identity Male 12/26/2021 10:25 AM EDT Sexual Orientation Straight 12/26/2021 10 :25 AM EDT Last Filed Vital Signs Vital Sign Reading Time Taken Comments Blood Pressure 130/72 09/04/2023 3:02 PM EDT Pulse 65 09/04/2023 3:02 PM EDT Temperature - - Respiratory Rate - - Oxygen Saturation - - Inhaled Oxygen Concentration - - Weight - - Height - - Body Mass Index - - Plan of Treatment Upcoming Encounters Date Type Department Care Team (Late st Contact Info) Description 05/07/2024 10:00 AM EDT Office Visit [facility] [address] [place] [address] Marcial Tamez 05/14/2024 10:00 AM EDT Office Visit [facility] [address] [place] [address] Edison Infante DMD [address] [place] [address] Health Maintenance Due Date Last Done Comments CT Colonography 1975 Colonoscopy 1975 Colorectal Cancer Screening 1975 Depression Screening 1975 FIT DNA/Cologuard 1975 FIT 1975 FOBT 1975 HIV Screening 1975 Lipid Panel 1975 SDOH Screening 1975 Sigmoidoscopy 1975 Alcohol/Substance Use Screening 1987 Family Planning (PISQ) 09/21/1990 Hepatitis C Screening 09/21/1993 Hepatitis B Vaccines (1 of 3 - 19+ 3-dose series) 09/21/1994 DTaP/Tdap/Td Vaccines (1 - Tdap) 02/13/2014 02/12/2014 COVID-19 Vaccine (4 - season) 2023 01/11/2022, 07/22/2020, 06/24/2020 Influenza Vaccine (#1) 2023 01/13/2020, 2019 Dental Oral Exam 03/07/2024 09/04/2023, , 05/24/2017, Additional history exists Dental Prophylaxis 03/07/2024 09/04/2023, 0 07/19/2021, 10/09/2018, Additional history exists Dental X-Ray: Bitewings 09/04/2024 09/04/19, 07/03/2023, 12/20/2021, Additional history exists Tobacco Screening 01/02/2025 01/03/2024 Zoster Vaccines (1 of 2) 09/21/2025 Dental X-Ray: Full Mouth 09/04/2026 09/04/2023, 02/26 RSV Patients and Patients Aged 60 years or older (1 - 1-dose 75+ series) 09/21/2050 Pneumococcal Vaccine: Pediatrics (0 to 5 Years) and At-Risk Patients (6 to 49) Years) Aged Out 07/19/2022 No longer eligible based on patient's age to complete this topic HIB Vaccines Aged Out No longer eligi ble based on patient's age to complete this topic HPV Vaccines Aged Out No longer eligi ble based on patient's age to complete this topic Hepatitis A Vaccines Aged Out No long er eligible based on patient's age to complete this topic IPV Vaccines Aged Out No longer eligi ble based on patient's age to complete this topic Meningococcal Vaccine Aged Out No reji cecil eligible based on patient's age to complete this topic RSV under 20 months Aged Out No longe r eligible based on patient's age to complete this topic Rotavirus Vaccines Aged Out No longer eligible based on patient's age to complete this topic Procedures Procedure Name Priority Date/Time Associated Diagnosis Comments PROPHYLAXIS - ADULT Routine 09/04/2023 3 :00 PM EDT INTRAORAL - COMPLETE SERIES OF RADIOGRAPHIC IMAGES Routine 09/04/2023 3:00 PM EDT PERIODIC ORAL EVALUATION - ESTABLISHED PATIENT Routine 09/04/2023 3:00 PM EDT from Last 3 Months or Most Recently Relevant to Health Maintenance Insurance [facility]
--- OUTSIDE RECORDS SUMMARY | 2024-04-28 16:05 | XMS_ITS | Encounter Summary ---
Author Organization [facility] Address [address] [place] [address] [address] [place] [address] Care Team Providers Care Wholesale Agronomist Name Role Phone Unavailable Primary Care Provider Unavailabl e Reason for Visit * Reason Onset Date Comments insurance 03/19/2024 Encounter Details Date Type Department Care Team ([facility] Contact Info) Description 03/19/2024 Telephone [facility] [address] [place] [address] Marcial Tamez insurance Social History Tobacco Use Types Packs/Day Years Used Date Smoking Tobacco: Never Smokeless Tobacco: Never Alcohol Use Standard Drinks/Week Comments Defer 0 (1 standard drink = 0.6 oz pur e alcohol) Sex and Gender Information Value Date Recorded Sex Assigned at Male 12/26/2021 10:25 AM EDT Legal Sex Male 10:25 AM EDT Gender Identity Male 12/26/2021 10:25 AM EDT Sexual Orientation Straight 12/26/2021 10 :25 AM EDT documented as of this encounter Miscellaneous Notes * Telephone Encounter - Judit Ariza - 03/19/2024 11:44 AM EST Patient carries [employer] [place] and we accept [employer] [place] insurance in our facilities. Did not have Id number avaialble. Will be calling in to provide information. id number coming up portal as active and in MMIS as member not eligible. RTE coming up as ERejected. Adrienne has been informed and documented in chart documented in this encounter Plan of Treatment Upcoming Encounters Date Type Department Care Team (Late Contact Info) Description 05/07/2024 10:00 AM EDT Office Visit [facility] [address] [place] [address] Marcial Tamez 05/14/2024 10:00 AM EDT Office Visit [facility] [address] [place] [address] Edison Infante, DMD [address] [place] [address] documented as of this encounter Visit Diagnoses Not on filedocumented in this encounter
--- OUTSIDE RECORDS SUMMARY | 2024-04-28 16:05 | XMS_ITS | Encounter Summary ---
Author Organization [facility] Address [address] [place] [address] [facility] [place] [address] Care Team Providers Care Torch Heater Name Role Phone Unavailable Primary Care Provider Unavailabl e Encounter Details Date Type Department Care Team (Latest Contact Info) Description 07/19/2021 Abstract [facility] CONVERSIONS Dental, Provider, DDS Social [...] 05/07/2024 10:00 AM EDT Office Visit [facility] [address] [place] [address] Marcial Tamez 05/14/2024 10:00 AM EDT Office Visit [facility] [address] [place] [address] Edison Infante, DMD [address] [place] [address] documented as of this encounter Visit Diagnoses Not on filedocumented in this encounter
== END 2024-04-28 14:16 | disposition home or self-care (01) ==
PROVIDERS: PCP Nurse Practitioner Family; Visit Provider Nurse Practitioner Family
DX: R16.0 Hepatomegaly, not elsewhere classified (principal); K76.0 Fatty (change of) liver, not elsewhere classified; K74.00 Hepatic fibrosis, unspecified
CPT/HCPCS: 99214; G2211

== ENCOUNTER → 2024-04-28 13:36 | Outpatient (BNVA) | payer OTHER, SELFPAY | PROVIDERS: PCP Nurse Practitioner Family; Visit Provider Nurse Practitioner Family | DX: R16.0 Hepatomegaly, not elsewhere classified (principal); K76.0 Fatty (change of) liver, not elsewhere classified; K74.00 Hepatic fibrosis, unspecified | CPT/HCPCS: 99212 ==

== ENCOUNTER 2024-05-06 10:00 | Outpatient (AMB) | payer OTHER, SELFPAY ==
--- NOTE | 2024-05-06 10:19 | A.OFFPC_ITS ---
Vital Signs 05/06/24 10:25 Height 6 ft 4 in Weight 276 lb BMI 33.6 BP 128/74 Blood Pressure Location Lt brachial Position Sitting Pulse 79 Pulse Source Pulse Oximeter Pulse Oximetry (%) 98 Intake Visit Reasons: 6M F/U Allergies No Known Allergies [No Known Allergies*] Allergy (Verified 05/06/24 10:56) Medication List - Last Reconciled 05/06/24 by SUSAN Purcell alcohol swabs (Alcohol Wipes) 1 pad topical BID atorvastatin 10 mg PO DAILY 90 days blood sugar diagnostic (FreeStyle Lite Strips) Use to check blood sugar twice a day: fasting and a random blood-glucose meter (FreeStyle Lite Meter kit) Use to check blood sugar twice a day: fasting and a random cholecalciferol (vitamin D3) 50 mcg PO DAILY empagliflozin (Jardiance) 10 mg PO DAILY 90 days ferrous fumarate 324 mg PO DAILY flash glucose scanning reader (BrightLineStyle Nicole 14 Day [place]) tid flash glucose sensor (FreeStyle Nicole 14 Day Sensor kit) tid testing ibuprofen 600 mg PO Q6H PRN lancets (FreeStyle Lancets) Use to check blood sugar twice a day: fasting and a random levothyroxine 125 mcg PO DAILY lidocaine 5% 1 patch topical DAILY metformin ER 500 mg PO QPM sitagliptin phosphate (Januvia) 25 mg PO DAILY 90 days Tobacco use date assessed: 05/06/24 Dental Screening Dental Screen Date: 05/06/24 Did you have a dental visit in the last 12 months?: Yes Did you have a dental problem in the last 6 months where you did not have access to dental care?: No Was dental information given to patient?: Patient has dentist HPI 6M F/U HPI Details Chief Complaint History of Present Illness The patient is a 48-year-old male presenting with follow-up concerns regarding weight loss and diabetes management. He is actively engaged in dietary interventions aimed at weight reduction. Ongoing management of diabetes is essential, and an A1c test is scheduled, with further endocrinology follow-up imminent. He has hypothyroidism, with recent medication adjustments by his distributor advertising material. The patient denies any neuropathy, polyuria, or polydipsia currently, and his eye exams are current, ruling out diabetic retinopathy concerns. The foot exam shows bilateral hammer toes and a large bunion on the right foot, both structural concerns while maintaining positive foot sensation. Social History - Engaged in dietary changes for weight management. - Regular follow-ups with endocrinologis t, speech pathology assistant, and inventory auditor. Health Maintenance - Regular eye examinations are up to felipa e. - Current efforts in dietary changes for weight management. Review of Systems - Neurological: Denies neuropathy. - Genitourinary: Denies polyuria. - Endocrine: Denies polydipsia. -denies any sob or cp Physical Exam General: Cooperative, healthy appearing, comfortable, no acute distress and well developed Orientation: Patient oriented x3 Limitations: No limitations Head: Normal to inspection Ears: Hearing grossly normal bilaterally Nose: Normal external nose present Face and sinus: Normal facial exam Eyes: Appearance normal, both eyes and all related structures Neck: Normal visual inspection and Yes full ROM Respiratory: Normal respiratory effort and able to speak in complete sentences. Clear to auscultation bilaterally Cardiovascular: Regular rate and rhythm. Normal S1 and S2 GI: Normal to inspection. Soft to palpation and nontender Skin: No rashes or lesions noted Neuro: Patient oriented x3 Extremities: Hammer toes bilaterally, large bunion on right foot, positive sensation with use of monofilament, feet intact bilaterally Results - Labs: A1c test is 5.5 Plan An A1c test will be conducted to ensure adequate glycemic control. Ongoing endocrinology follow-up will assist in managing diabetes and hypothyroidism. If foot conditions exacerbate, a podiatry referral may be necessary. The patient is encouraged to continue his dietary efforts, with regular evaluations to ensure successful weight management. Maintaining updated eye examinations is advised to prevent diabetic complications. Discussion Notes I discussed the need for performing an A1c test to evaluate current diabetes control, stressing the importance of regular monitoring in anticipation of follow-up with his distributor advertising material. We reviewed his ongoing work in dietary adjustments for weight loss and emphasized maintaining current eye examination schedules. We also addressed foot structural changes and are monitoring them for any necessary podiatric intervention in the future. Patient Instructions - Obtain an A1c test to monitor diabetes control. - Continue dietary changes to support we ight loss. - Follow up with your distributor advertising material as scheduled. - Maintain routine eye examinations. - Observe foot changes closely and repor t any new symptoms. [facility] Medical History Hepatomegaly Type 2 diabetes mellitus Fatty liver DM (diabetes mellitus), type 2 with ophthalmic complications Kidney stones Hypothyroid Surgical History Hx of colonoscopy History of total right knee replacement (~09/2019) History of arthroscopy of right knee (~03/29/16) Family History Father Stroke Heart attack Low blood pressure Mother No problems noted. Daughter No problems noted. 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 1. Little interest or pleasure in doing things: not at all 2. Feeling down, depressed, or hopeless: not at all 3. Trouble falling or staying asleep, or sleeping too much: not at all 4. Feeling tired or having little energy: not at all 5. Poor appetite or overeating: not at all 6. Feeling bad about yourself - or that you are a failure or have let yourself or your family down: not at all 7. Trouble concentrating on things, such as reading the newspaper or watching television: not at all 8. Moving or speaking so slowly that other people could have noticed. Or the opposite - being so fidgety or restless that you have been moving around a lot more than usual: not at all 9. Thoughts that you would be better off or of hurting yourself in some way: not at all Total score: 0 Depression Screening Interpretation: Negative Depression Screening Done: Yes 86653 - PHQ-9 Billing: Yes Source: Developed by Drs. Domingo Estrada, Kayleigh Menjivar, Andrea Stevens and colleagues, with an educational salinas from [employer]. Thrive Questionnaire Date Thrive assessed: 05/06/24 I am a: Patient What is your living situation today?: I have a steady place to live Within the past 12 months, did the food you bought not last and you didn't have the money to get more?: Never true Within the past 12 months, did you worry whether your food would run out before you got money to buy more?: I choose not to answer this question Do you have trouble paying for medicines?: Yes Do you have trouble getting transportation to medical appointments?: No Do you have trouble paying your heating and electricity bill?: Yes Do you have trouble taking care of your child, family member or friend?: No Do you have trouble with day-to-day activities such as bathing, preparing meals, shopping, managing finances, etc.?: No Are you currently unemployed and looking for a job?: No Are you interested in more education?: No Please select the resources that you would like help with: None Currently or been in a relationship where the following occur: I choose not to answer THRIVE Score: 1 AUDIT C Alcohol Use Questionnaire (AUDIT-C) 1. How often do you have a drink containing alcohol?: Never 3. How often do you have six or more drinks on one occasion?: Never Total Score: 0 Score Reviewed/Action Taken: Yes SHAGUFTA-7 AMB Questionnaire SHAGUFTA-7 Date SHAGUFTA - 7 assessed: 05/06/24 Feeling nervous, anxious, or on edge: 0 = Not at all Not being able to stop or control worryin = Not at all Worrying too much about different things: 0 = Not at all Trouble relaxin = Not at all Being so restless that it is hard to sit still: 0 = Not at all Becoming easily annoyed or irritable: 0 = Not at all Feeling afraid as if something awful might happen: 0 = Not at all Total SHAGUFTA-7 score (0-4 normal; 5-9 mild; 10-14 moderate; 15-21 severe): 0 Source: Developed by Drs. Domingo Estrada, Kayleigh Menjivar, Andrea Stevens and colleagues, with an educational salinas from [employer]. SHAGUFTA-7 Assessment Billing SHAGUFTA-7 Assessment Tool: SHAGUFTA-7 Assessment 44976 Physical exam (Primary Care) Vital Signs: Last Vital Signs Pulse 79 05/06/24 10:25 BP 128/74 05/06/24 10:25 Pulse Ox 98 05/06/24 10:25 BMI result Body Mass Index 33.6 Tobacco/Smoking Status: Tobacco use Status Tobacco use date assessed 05/06/24 05/06/24 10:27 Patient Tobacco Use Status Never used Tobacco 05/06/24 10:20 e-Cigarette/Vaping Use Never Used 05/06/24 10:20 PHQ-9: PHQ-9 Score PHQ-9: Total score 0 05/06/24 11:03 Depression Screening Interpretation: Negative Thrive Assessment: Date of Thrive Assessment Date Thrive assessed 05/06/24 05/06/24 10:27 Currently or been in a relationship where the following occur: I choose not to answer Results AMB Hemoglobin A1c AMB Hemoglobin A1c 5.5 % Last Edit by Rene Fish CMA on 05/06/24 11: 13 Results Reviewed Results Reviewed: Laboratory Last Values Hgb A1c (Clinic) 5.5 % (4.0-6.0) 05/06/24 11:12 Coding Level of Care Code Est Pt Level 3 (17783) Diagnoses Type 2 diabetes mellitus E11.9 Screening PSA (prostate specific antigen) Z12.5 Additional Codes SHAGUFTA-7 Assessment Billing - SHAGUFTA-7 Assessment Tool: SHAGUFTA-7 Assessment 06508 ([id number]) PHQ-9 - 58113 - PHQ-9 Billing: Yes ([id number]) Assessment & Plan Assessment & Plan (1) Type 2 diabetes mellitus: Code(s): E11.9 - Type 2 diabetes mellitus without complications Category: Medical (2) Screening PSA (prostate specific antigen): Code(s): Z12.5 - Encounter for screening for malignant neoplasm of prostate Category: Medical Plan . Orders: Orders Complete Blood Count Auto Diff Today E11.9 - Type 2 diabetes mellitus without complications UA CC w/rflx Micro + Cult Today E11.9 - Type 2 diabetes mellitus without complications Lipid Panel Today E11.9 - Type 2 diabetes mellitus without complications Prostate Specific Antigen Scr Today Z12.5 - Encounter for screening for malignant neoplasm of prostate Comprehensive [place]. Panel Fast Today E11.9 - Type 2 diabetes mellitus without complications AMB Hemoglobin A1c Today Z13.9 - Encounter for screening, unspecified Medications: Refilled blood sugar diagnostic (FreeStyle Lite Strips) Use to check blood sugar twice a day: fasting and a random 100 ea 2RF E11.9 - Type 2 diabetes mellitus without complications
[2024-05-06 10:25] VITALS: BP 128/74; PULSE 79; O2SAT 98; BMI 33.6
--- OUTSIDE RECORDS SUMMARY | 2024-05-06 11:41 | XMS_ITS | Encounter Summary ---
Author Organization [employer] Address [address] [place] [address] [address] [place] [address] Care Team Providers Care Donor Specialist Name Role Phone Unavailable Primary Care Provider Unavailabl e Encounter Details Date Type Department Care Team (Latest Contact Info) Description 07/19/2021 Abstract [facility] CONVERSIONS Dental, Provider, DDS Social History Tobacco [...] Care Team (Late st Contact Info) Description 05/14/2024 10:00 AM EDT Office Visit [facility] [address] [place] [address] Edison Infante, JOSE [address] [place] [address] 05/30/2024 8:00 AM EDT Office Visit [facility] [address] [place] [address] Marcial Tamez documented as of this encounter Visit Diagnoses Not on filedocumented in this encounter
--- OUTSIDE RECORDS SUMMARY | 2024-05-06 11:41 | XMS_ITS | Encounter Summary ---
Author Organization [employer] Address [address] [place] [address] [facility] [place] [address] Care Team Providers Care Game Programer Name Role Phone Unavailable Primary Care Provider Unavailabl e Encounter Details Date Type Department Care Team (Latest Contact Info) Description 10/09/2018 Abstract [facility] CONVERSIONS Dental, Provider, DDS Social History [...] Description 05/14/2024 10:00 AM EDT Office Visit [facility] [address] [place] [address] Edison Infante, JOSE [address] [place] [address] 05/30/2024 8:00 AM EDT Office Visit [facility] [address] [place] [address] Marcial Tamez documented as of this encounter Visit Diagnoses Not on filedocumented in this encounter
--- OUTSIDE RECORDS SUMMARY | 2024-05-06 11:41 | XMS_ITS | Encounter Summary ---
Author Organization [employer] Address [address] [place] [address] 7 [place] [address] Care Team Providers Care Food Service Order Clerk Name Role Phone Unavailable Primary Care Provider Unavailabl e Reason for Visit * Reason Onset Date Comments insurance 03/19/2024 Encounter Details Date Type Department Care Team ([facility] Contact Info) Description 03/19/2024 Telephone [facility] [address] [place] [address] Marcial Tamez insurance Social History Tobacco Use [...] Department Care Team (Late Contact Info) Description 05/14/2024 10:00 AM EDT Office Visit [facility] [address] [place] [address] Edison Infante, JOSE [address] [place] [address] 05/30/2024 8:00 AM EDT Office Visit [facility] [address] [place] [address] Marcial Tamez documented as of this encounter Visit Diagnoses Not on filedocumented in this encounter
--- OUTSIDE RECORDS SUMMARY | 2024-05-06 11:41 | XMS_ITS | Clinical Summary ---
Author Organization [employer] Address [address] [place] [address] 7 [place] [address] Care Team Providers Care Tire Groover Name Role Phone Unavailable Primary Care Provider [...] for 30 minutes following use. 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 Encounters Date Type Department Care Team Description 03/19/2024 Telephone [facility] [address] [place] [address] Marcial Tamez insurance from Last 3 Months Social History Tobacco [...] Description 05/14/2024 10:00 AM EDT Office Visit [facility] [address] [place] [address] Edison Infante, DMD [address] [place] [address] 05/30/2024 8:00 AM EDT Office Visit [facility] [address] [place] [address] Marcial Tamez Health Maintenance Due Date Last Done Comments [...] Most Recently Relevant to Health Maintenance Insurance [facility]
== END 2024-05-06 11:22 | disposition home or self-care (01) ==
LOC: HO.HMCC 10:01
PROVIDERS: PCP Nurse Practitioner Family; Visit Provider Nurse Practitioner Family
DX: E11.9 Type 2 diabetes mellitus without complications (principal); Z12.5 Encounter for screening for malignant neoplasm of prostate; Z13.9 Encounter for screening, unspecified

== ENCOUNTER → 2024-05-06 10:00 | Outpatient (BNVA) | payer OTHER, SELFPAY | PROVIDERS: PCP Nurse Practitioner Family; Visit Provider Nurse Practitioner Family | DX: E11.9 Type 2 diabetes mellitus without complications (principal) | CPT/HCPCS: 83036; 96127; 99212 ==

== ENCOUNTER 2024-07-16 15:29 | Outpatient (AMB) | payer OTHER, SELFPAY ==
--- NOTE | 2024-07-16 14:59 | MHC.OFFVIS ---
Intake Visit Reasons: T2DM Allergies No Known Allergies [No Known Allergies*] Allergy (Verified 05/06/24 10:56) PFSH Medical History Hepatomegaly Type 2 diabetes mellitus Fatty liver DM (diabetes mellitus), type 2 with ophthalmic complications Kidney stones Hypothyroid Surgical History Hx of colonoscopy History of total right knee replacement (~09/2019) History of arthroscopy of right knee (~03/29/16) Family History Father Stroke Heart attack Low blood pressure Mother No problems noted. Daughter No problems noted. 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
--- OUTSIDE RECORDS SUMMARY | 2024-07-16 15:31 | XMS_ITS | Encounter Summary ---
Author Organization [employer] Address [address] [place] [address] [address] [address] Care Team Providers Care Pets Salesperson Name Role Phone Unavailable Primary Care Provider Unavailabl e Encounter Details Date Type Department Care Team (Latest Contact Info) Description 10/09/2018 Abstract [facility] CONVERSIONS Dental, Provider, DDS Social History Tobacco Use Types Packs/Day Years Used Date Smoking Tobacco: Never Assessed Sex and Gender Information Value Date Recorded Sex Assigned at Male 12/26/2021 10:25 AM EDT Legal Sex Male 10:25 AM EDT Gender Identity Male 12/26/2021 10:25 AM EDT Sexual Orientation Straight 12/26/2021 10 :25 AM EDT documented as of this encounter Plan of Treatment Not on file documented as of this encounter Visit Diagnoses Not on filedocumented in this encounter
--- OUTSIDE RECORDS SUMMARY | 2024-07-16 15:31 | XMS_ITS | Encounter Summary ---
Author Organization [employer] Address [address] [place] [address] [address] [place] [address] Care Team Providers Care Electroencephalograph Technician Name Role Phone Unavailable Primary Care Provider Unavailabl e Reason for Visit * Reason Comments Med Refill Encounter Details Date Type Department Care Team (Late st Contact Info) Description 06/21/2024 Refill [facility] [address] [place] [address] Carlos Cerna DDS [address] [place] [address] Social History Tobacco Use Types Packs/Day Years [...]
--- OUTSIDE RECORDS SUMMARY | 2024-07-16 15:31 | XMS_ITS | Clinical Summary ---
Author Organization [employer] Address [address] [place] [address] 7 [place] [address] Care Team Providers Care Tunnel Mucker Name Role Phone Unavailable Primary Care Provider [...] Encounters Date Type Department Care Team Description 06/21/2024 Refill [facility] [address] [place] [address] Carlos Cerna DDS 05/06/2024 Telephone [facility] [address] [place] [address] Edison Infante, JOSE from Last 3 Months Social History Tobacco [...] Mass Index - - Plan of Treatment Health Maintenance Due Date Last Done Comments CT Colonography 1975 Colonoscopy 1975 Colorectal Cancer Screening 1975 Depression Screening 1975 FIT DNA/Cologuard 1975 FIT 1975 FOBT 1975 HIV Screening 1975 Lipid Panel 1975 SDOH Screening 1975 Sigmoidoscopy 1975 Disability Screening 1975 Alcohol/Substance Use Screening 1987 Family Planning (PISQ) 09/21/1990 Hepatitis C Screening 09/21/1993 Hepatitis B Vaccines (1 of 3 - 19+ 3-dose series) 09/21/1994 DTaP/Tdap/Td Vaccines (1 - Tdap) 02/13/2014 02/12/2014 COVID-19 Vaccine (4 - 2024-25 season) 2023 01/11/2022, 07/22/2020, 06/24/2020 Influenza Vaccine [...] patient's age to complete this topic Meningococcal B Vaccine Aged Out No l onger eligible based on patient's age to complete [...] Most Recently Relevant to Health Maintenance Insurance [facility]
--- OUTSIDE RECORDS SUMMARY | 2024-07-16 15:31 | XMS_ITS | Encounter Summary ---
Author Organization [employer] Address [address] [place] [address] [address] [address] Care Team Providers Care Coconut Jelly Roller Name Role Phone Unavailable Primary Care Provider Unavailabl e Encounter Details Date Type Department Care Team (Latest Contact Info) Description 07/19/2021 Abstract [facility] CONVERSIONS Dental, Provider, DDS Social History [...]
--- OUTSIDE RECORDS SUMMARY | 2024-07-16 15:31 | XMS_ITS | Encounter Summary ---
Author Organization [employer] Address [address] [place] [address] [address] [address] Care Team Providers Care Diversional Therapist Name Role Phone Unavailable Primary Care Provider Unavailabl e Reason for Visit * Reason Onset Date Comments insurance 03/19/2024 Encounter Details Date Type Department Care Team ([facility] st Contact Info) Description 03/19/2024 Telephone [facility] [address] [place] [address] Marcial Tamez insurance Social History Tobacco Use [...] documented in this encounter Plan of Treatment Not on file documented as of this encounter Visit Diagnoses Not on filedocumented in this encounter
--- OUTSIDE RECORDS SUMMARY | 2024-07-16 15:31 | XMS_ITS | Data Portability ---
Author Organization [place] - [facility] [address] Address [address] [place] [address] Assessment No assessment recorded. Plan of Treatment [...] Address Organization Details Recorded Time Diabetes mellitus [id number] Active Sparkle Ione null, [place] - [facility] 4 10:53:58 Problem Notes None recorded. Procedures Surgical History Date Name Laterality Status Provider Name and Address Organization Details Recorded Time 4 OC-UDS Send Out Template NON DOT completed Sparkle Ione [place] - [facility] 01/16/2024 11:01:18 4 OC-DOT PHYSICAL completed Sparkle Ione [place] - [facility] 01/16/2024 10:51:17 Imaging [...] % 64 /min 16 /min 33.2 kg/m2 352890. 72 g 138 mm[Hg] 86 mm[Hg] Sparkle Ione [place] - [facility] 10:51:52 Social History Question Answer Notes LastModified by Organizat ion Details LastModified Time Tobacco Smoking Status Never Smoker Sparkle Ione edith [place] - [facility] 01/16/2024 10:54:13 Have You Had A Flu Shot This Season? No Information not available 01/16/2024 If No, Would You Like A Flu Shot Today? No Information not available 01/16/2024 Have You Recently Traveled Abroad? No Information not available 01/16/2024 Sex: Unknown Functional Status Question Answer Note LastModified by Organizat ion Details LastModified Time Do you use any illicit or recreational drugs? No Information not available 01/16/2024 Do you or have you ever used any other forms of tobacco or nicotine? No Information not available 01/16/2024 What is your level of alcohol consumption? None Information not available 01/16/2024 Mental Status None recorded. Family History Nothing Reported. Medical History No medical history recorded. Past Encounters Encounter ID Performer Location Encounter Start Date Encounter Closed Date Diagnosis/Indication Diagnosis SNOMED-CT Code Diagnosis ICD10 Code Diagnosis Note [id number] [address] [address] [place] [address] 03/02/2021 08:39:21 03/02/2021 12:07:20 [id number] ROBBIN Stephen [address] [place] [address] 01/16/2024 10:31:17 01/16/2024 11:27:13 History and physical examination, occupation 406471889 Z02.1 The patient was given a 1 year DOT certificat ion given. Controlled DM2 Refer to scanned DOT physical exam forms and DOT certificat e for exam findings. Slide Maker lic ense medical examination [id number] Z02.4 Physical examination [phone] Z02.4 Health Concerns Section Related Observation LastModified by Organization Detai ls LastModified Time None Recorded Concern Status LastModified by Organization Details LastModified Time None Recorded Advance Directives Directive None Recorded Payers Insurance Date Sequence Insurance Name Policy Number Policy Andrade Covered Member ID Andrade Member ID Guarantor Name 01/16/2024 OC-ESCREEN Yoandy Roberson 01/16/2024 1 [facility] [employer] - HEALTH NET PLAN (MEDICAID HMO) SAAD Roberson [id number] Yoandy Roberson
[2024-07-16 15:36] VITALS: BP 134/84; PULSE 81; O2SAT 96; BMI 38.6
--- NOTE | 2024-07-16 15:36 | A.OFFVIS_ITS ---
Vital Signs 07/16/24 15:36 Height 6 ft Weight 284 lb 6.341 oz BMI 38.6 BP 134/84 Blood Pressure Location Rt brachial Position Sitting Pulse 81 Pulse Source Pulse Oximeter Pulse Oximetry (%) 96 Oxygen Delivery Method Room Air Intake Visit Reasons: T2DM Intake Note: Patient presents today for a follow-up on Type 2 Diabetes Mellitus: Last Diabetic eye exam was on: 09/2023, [facility]. Last Podiatry exam was on: Patient does not see a Metropolitan Editor Most recent HbA1c: 5.6%, 07/16/2024 Random Glucose- 98 mg/dL, Today Director Of Graduate Admissions Required: No Accompanied by: Self / Same As Patient Allergies No Known Allergies [No Known Allergies*] Allergy (Verified 07/16/24 15:43) HPI Comments Details: 48 YO male who is seen in f/u for T2DM. He was seen as an initial consult 10/02/2023. A1C had been in reasonable control until July 2023 when it increased to 11%. His PCP had adjusted his medication prior to his endocrine visit. Since his initial consult he has met with the RD in the clinic and has made major modifications in his diet and has lost approximately 14 lb in 3 months. A1C 5.3% 01/02/24. He reduced his metformin ER to once daily due to GI intolerance and has been doing much better with this dose. Initially diagnosed with T2DM in [2020]. Was initially started on treatment with [metformin 500mg bid Treatment was intensified this past July.]. Current regimen Jardiance 10 mg, metformin ER 1000 mg daily glucose typically 90-110 fasting occasionally tests at night Reports low sugars [no]. Treats lows with has skittles with him but has never needed. Denies retinopathy: Has eyes checked yearly, last eye exam 09/2023 Denies neuropathy, last foot exam 09/2023 does not see podiatry. Denies numbness, tingling or cramping lower extremities [Denies] nephropathy, on [ROCKY/ARB]. No microalbuminuria [Has] HLD, on [statin, low dose]. Last LDL [94] as measured on [08/12]. [Denies] CAD. Followed by GI medicine and has had fatty liver workup. Has hypothyroidism followed by his PCP and had recent reduction in tirosint to 200 mcg. 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 Once in the past has recently seen Elzbieta Limon RD COUNT INCLUDES [facility] Medical History Hepatomegaly Type 2 diabetes mellitus Fatty liver DM (diabetes mellitus), type 2 with ophthalmic complications Kidney stones Hypothyroid Surgical History Hx of colonoscopy History of total right knee replacement (~09/2019) History of arthroscopy of right knee (~03/29/16) Family History Father Stroke Heart attack Low blood pressure Mother No problems noted. Daughter No problems noted. 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 Cognitive needs: No Hearing needs: No Vision needs: No Physical Exam Vital Signs: Last Vital Signs Pulse 81 07/16/24 15:36 BP 134/84 07/16/24 15:36 Pulse Ox 96 07/16/24 15:36 Oxygen Delivery Method Room Air 07/16/24 15:36 BMI result Body Mass Index 38.6 Results AMB Hemoglobin A1c AMB Hemoglobin A1c 5.6 % Last Edit by SARAHI Hearn on 07/16/24 15:50 Assessment & Plan Assessment & Plan Orders: Orders AMB Hemoglobin A1c Today E11.9 - Type 2 diabetes mellitus without complications Medications: New levothyroxine 150 mcg PO DAILY 90 days 90 tabs 3RF Discontinued levothyroxine Discontinued Reason: Doctor's Order 175 mcg PO DAILY 90 caps 0RF Coding
[2024-07-17 15:27] LABS: Glucose, Whole Blood 98 mg/dL (60-115)
== END 2024-07-16 16:03 | disposition home or self-care (01) ==
LOC: HO.ENCR 15:30
PROVIDERS: PCP Nurse Practitioner Family; Visit Provider Nurse Practitioner Adult Health
DX: E11.9 Type 2 diabetes mellitus without complications (principal)

== ENCOUNTER → 2024-07-16 15:29 | Outpatient (BNVA) | payer OTHER, SELFPAY | PROVIDERS: PCP Nurse Practitioner Family; Visit Provider Nurse Practitioner Adult Health | DX: E11.9 Type 2 diabetes mellitus without complications (principal); E03.9 Hypothyroidism, unspecified | CPT/HCPCS: 82947; 83036; 99212 ==

== ENCOUNTER 2024-12-20 07:59 | Emergency (ER) | payer SELFPAY ==
--- NOTE | ~2024-12-20 | CT_ITS ---
CLINICAL HISTORY: posterior neck abscess, DM CT soft tissue neck with contrast Comparison: None provided Findings: The visualized intracranial contents are unremarkable. Pharyngeal mucosal space, parapharyngeal fat, prevertebral tissues, and epiglottis are within normal limits. Salivary glands are unremarkable. No sialoliths. No suspicious thyroid nodules. There is soft tissue edema/inflammation involving the dorsal subcutaneous fat just inferior to the posterior skull base at the level of C1 and C2. There is no discrete abscess identified. There is no soft tissue emphysema. No acute fracture or dislocation. There is multilevel degenerative disc disease. IMPRESSION: There is soft tissue edema/inflammation involving the dorsal subcutaneous fat just inferior to the posterior skull base at the level of C1 and C2 with no discrete abscess or soft tissue emphysema. This document has been electronically signed by: Ba Oneal MD on 12/20/2024 11:34:54
[2024-12-20 08:02] VITALS: BP 176/87; PULSE 75; RESP 20; TEMP 36.1; O2SAT 100; BMI 38.0
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
--- NOTE | 2024-12-20 09:03 | PC.NURSE ---
very large diffuse abscess across nape of neck. states it's been there for 24 hrs. soft, not red. awaits CT
[2024-12-20 09:05] LABS: MANUAL DIFF FLAG NO
[2024-12-20 09:09] LABS: Hematocrit 39.3 % (42.0-52.0); Hemoglobin 13.0 g/dl (14.0-18.0); Imm Gran Abs Auto 0.03 X10*3/uL (0.00-0.03); Imm Gran Pct Auto 0.4 % (0.0-0.4); Lymphocytes Absolute Auto 1.6 X10*3/uL (1.2-4.9); Mean Corpuscular HGB Conc 33.1 g/dl (31.0-36.0); Mean Corpuscular Hemoglobin 32.8 pg (27.0-33.0); Mean Corpuscular Volume 99.2 fL (80.0-98.0); NRBC Abs Auto 0.000 X10*3/uL (0.0-0.012); NRBC Pct Auto 0.0 /100WBC (0.0-0.2); Platelet Count 107 X10*3/uL (160-400); Red Blood Count 3.96 X10*6/uL (4.60-5.80); White Blood Count 8.0 X10*3/uL (4.8-10.8)
[2024-12-20 09:27] LABS: Alanine Aminotransferase 40 U/L (0-40); Albumin Level 4.7 g/dL (3.5-5.0); Alkaline Phosphatase 82 U/L (39-117); Anion Gap 11 (12-20); Aspartate Amino Transferase 38 U/L (5-37); Blood Urea Nitrogen 13 mg/dL (9-16); Calcium 9.1 mg/dL (8.4-10.2); Carbon Dioxide 28 mmol/L (22-29); Chloride 106 mmol/L (96-108); Creatinine Clr Calc Pharmacy 171.8; Estimated Glomerular Filt Rate > 60; Potassium 4.2 mmol/L (3.3-5.1); Sodium 141 mmol/L (135-145); Total Protein 7.6 g/dL (6.5-8.0)
[2024-12-20 09:53] LABS: Erythrocyte Sedimentation Rate 16 MM/HR (0-15)
[2024-12-20] MEDS: iohexoL 350 MG/ML 100 ML INFUS..BTL IV (10:00)
[2024-12-20 10:16] VITALS: BP 140/83; PULSE 78; RESP 20; TEMP 36.9; O2SAT 99
[2024-12-20 12:06] VITALS: BP 140/83; PULSE 78; RESP 20; TEMP 36.9; O2SAT 99
== END 2024-12-20 12:12 | disposition home or self-care (01) ==
PROVIDERS: Physician Assistant Medical; Emergency Provider Emergency Medicine Emergency Medical Services; PCP Nurse Practitioner Family
DX: L03.221 Cellulitis of neck (principal); E11.9 Type 2 diabetes mellitus without complications; Z79.84 Long term (current) use of oral hypoglycemic drugs; Z79.899 Other long term (current) drug therapy
CPT/HCPCS: 36415; 70491; 80053; 83605; 85025; 85652; 86140; 87040; 96365; 99284; J0696; Q9967

== ENCOUNTER → 2024-12-20 08:40 | Outpatient (BNV) | payer MEDICAID, SELFPAY | PROVIDERS: Emergency Provider Emergency Medicine Emergency Medical Services; PCP Nurse Practitioner Family; Visit Provider Radiology Diagnostic Radiology | DX: L02.11 Cutaneous abscess of neck (principal); E11.9 Type 2 diabetes mellitus without complications | CPT/HCPCS: 70491 ==

== ENCOUNTER 2024-12-23 09:28 | Observation (INO) | payer MEDICAID, SELFPAY ==
--- NOTE | ~2024-12-23 | US_ITS ---
EXAMINATION: US SOFT TISSUE HEAD AND NECK LIMITED. CLINICAL INFORMATION: Pain and erythema, suboccipital.. COMPARISON: None available. TECHNIQUE: Linear transducer russ-scale and color Doppler examination with attention to the suboccipital soft tissue scalp. FINDINGS: Edema pattern. No gross fluid collection. US/US soft tiss head and/or neck IMPRESSION: No overt abscesses.. Electronically signed by: Neo Perdue MD 12/24/2024 08:11 PM EDT
[2024-12-23 09:30] VITALS: BP 136/90; PULSE 81; RESP 18; TEMP 36.6; O2SAT 98; BMI 37.3
--- NOTE | 2024-12-23 09:45 | ED_ITS ---
HPI - General Adult General Chief complaint: General Medical Stated complaint: lump back of head Time Seen by Provider: 12/23/24 09:32 Source: patient, RN notes reviewed and old records reviewed Mode of arrival: ambulatory Limitations: no limitations History of Present Illness ED Provider: KERRI Rogers HPI narrative: 49-year-old male with medical history of hypothyroidism, hepatomegaly, hepatic steatosis, T2DM, presents to ED due to mass located on the occipital region of the midline scalp. Patient states this mass began on Tuesday 12/19 and came to the department for evaluation. CT scans were done and negative for abscess or gas in soft tissues. Patient was prescribed Keflex and doxycycline for coverage, and has been taking these medications. Patient states last night he experienced some chills, this morning he noticed some purulent drainage and reports the area getting larger MD complaint: mass on back of neck Related Data Home Medications ?Medication ?Instructions ?Recorded ?Confirmed metformin 500 mg tablet,extended 500 mg PO DAILY 04/2812/23/24 release 24 hr Previous Rx's ?Medication ?Instructions ?Recorded blood-glucose meter (FreeStyle #1 ea 12/30/20 Lite Meter kit) flash glucose scanning reader #1 ea 01/05/21 (FreeStyle Nicole 14 Day [place]) flash glucose sensor (FreeStyle #1 ea 01/05/21 Nicole 14 Day Sensor kit) empagliflozin 10 mg tablet 10 mg PO DAILY 90 days #90 tabs 11/15/23 (Jardiance) sitagliptin phosphate 25 mg tablet 25 mg PO DAILY 90 d ays #90 tabs 12/25/23 (Januvia) Held on 01/02/24. Instructions: Doctor's Order lancets 28 gauge (FreeStyle #200 ea 03/18/24 Lancets) blood sugar diagnostic (FreeStyle #100 ea 05/06/24 Lite Strips) cholecalciferol (vitamin D3) 50 50 mcg PO DAILY #60 ta bs 06/25/24 mcg (2,000 unit) tablet atorvastatin 10 mg tablet 10 mg PO DAILY 90 days #90 t abs 07/07/24 levothyroxine 150 mcg tablet 150 mcg PO DAILY 90 days #90 tabs 07/16/24 cephalexin 500 mg capsule 500 mg PO Q6H 7 days #28 cap s 12/20/24 doxycycline hyclate 100 mg tablet 100 mg PO BID 7 days #14 tabs 12/20/24 Allergies Allergy/AdvReac Type Severity Reaction Status Date / Time No Known Allergies (No Known Allergy Verified 12/23/24 09:32 Allergies*) Review of Systems 2 Review of Systems: CONST: Negative for fever, body aches and chills. HENT: Negative for neck pain/stiffness, headache, congestion, sore throat, swelling. EYES: Negative for discharge/pain or vision changes. RESP: Negative for cough/hemoptysis and shortness of breath. CV: Negative chest pain, difficulty breathing, palpitations. ABD: Negative pain, nausea, vomiting. : Negative increase frequency, dysuria, blood in urine or stool. MUSC: Negative for muscle aches, edema. SKIN: Negative rash, lesions/sores. POS mass on occipital aspect of head, some drainage NEURO: Negative headache, dizziness, weakness. [facility] Past Medical History Attestation statement: The following information was validated with the patient. Source: old records reviewed and nursing notes reviewed Medical History Hepatomegaly Type 2 diabetes mellitus Fatty liver DM (diabetes mellitus), type 2 with ophthalmic complications Kidney stones Hypothyroid Surgical History Hx of colonoscopy History of total right knee replacement (~09/2019) History of arthroscopy of right knee (~03/29/16) Family History Family History Father Stroke Heart attack Low blood pressure Mother No problems noted. Daughter No problems noted. 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 HEENT: ?NC, AT. MMM. EOMI, clear conjunctiva, oropharynx clear. On the occipital region of the scalp there is a golf ball sized indurated mass with erythema and serosanguinous fluid, no drainage when expressing the area, no warmth noted NECK: ?Supple without lymphadenopathy.? No stiffness or restricted ROM. HEART:? Normal rate and regular rhythm, normal S1/S2, no m/r/g LUNGS:? CTAB, moving air well. No crackles or wheezes are heard. ABDOMEN: ?Soft, nontender, nondistended with good bowel sounds heard. BACK: No CVAT, no obvious deformity. EXTREMITIES: ?Without cyanosis, clubbing or edema. NEUROLOGICAL: ?Grossly nonfocal. Alert and oriented, moving all 4 extremities. Observed to ambulate with normal gait. Skin: ?Warm and dry without any rash. Medications Administered Generic Name Dose Route Start Last Admin Trade Name Freq PRN Reason Stop Dose Admin Enoxaparin Sodium 40 mg 12/23/24 13:15 12/23/24 14:06 Enoxaparin Sodium 40 Mg/0.4 Ml Syringe SUBCUT 40 mg Q24H FRANDY Administration Discontinued Medications Generic Name Dose Route Start Last Admin Trade Name Freq PRN Reason Stop Dose Admin Bacitracin 1 appl 12/23/24 10:51 12/23/24 10:57 Bacitracin Oint 0.9 Gm Packet TOPICAL 12/23/24 10:52 1 appl ONCE ONE Administration Protocol Diphenhydramine HCl 25 mg 12/23/24 13:49 12/23/24 14:06 Diphenhydramine Hcl 25 Mg Capsule PO 12/23/24 13:50 25 mg ONCE ONE Administration Vancomycin HCl 2,000 mg in 500 mls @ 250 mls/hr 12/23/24 10:52 12/23/24 13:20 Vancomycin/Ns IV 12/23/24 12:51 Infused ONCE ONE Infusion Medical Decision Making Medical Decision Making MDM Narrative: 49-year-old male with medical history of hypothyroidism, hepatomegaly, hepatic steatosis, T2DM, presents to ED due to mass located on the occipital region of the midline scalp. Patient states this mass began on Tuesday 12/19 and came to the department for evaluation. CT scans were done and negative for abscess or gas in soft tissues. Patient was prescribed Keflex and doxycycline for coverage, and has been taking these medications. Patient states last night he experienced some chills, this morning he noticed some purulent drainage and reports the area getting larger VS on initial observation-BP 136/90, pulse rate of 81, respiratory rate of 18, afebrile with oral temp of 98?, O2 saturation 98% on room air. Labs without leukocytosis/leukopenia, macrocytic anemia with a hemoglobin of 13.3, hematocrit of 40.2, thrombocytopenia with a platelet count of 135 however these labs have improved since his last visit on 12/20, chronically elevated bilirubin of 2.5, lactic acid WNL My attending physician Dr. Kumari did a bedside ultrasound which did not reveal collection of fluid. The mass was aspirated and incision and drainage performed with a very small amount of purulent fluid expressed. Patient has been on Keflex and doxycycline without improvement. IV vancomycin was started for empirical coverage. We discussed the need for patient to be admitted since he is diabetic, the mass is growing in size and he has essentially failed outpatient therapy. I spoke with Hospitalist TECHNICIAN INVENTORY SPECIALIST Arabella Limon who will admit to medicine for IV antibiotics. Differential Diagnosis Differential Diagnoses: The differential diagnosis associated with the presentation includes Cellulitis Abscess Necrotizing fasciitis Admission/Observation Consideration of admission/observation: Escalation of care including admission/observation considered Lab Data MDM Lab Attestation statement: I reviewed the patient's lab results. 12/23/24 11:05 12/23/24 11:05 Labs: Lab Results 12/23/24 Range/Units 11:05 WBC 9.2 (4.8-10.8) X10*3/uL RBC 4.08 L (4.60-5.80) X10*6/uL Hgb 13.3 L (14.0-18.0) g/dl Hct 40.2 L (42.0-52.0) % MCV 98.5 H (80.0-98.0) fL MCH 32.6 (27.0-33.0) pg MCHC 33.1 (31.0-36.0) g/dl RDW 12.1 (11.0-16.0) % Plt Count 135 L D (160-400) X10*3/uL MPV 12.0 (9.4-12.4) fL Immature Gran % (Auto) 0.3 (0.0-0.4) % Neut % (Auto) 61.9 (45-73) % Lymph % (Auto) 28.5 (20-40) % [place] % (Auto) 7.9 (2-11) % Eos % (Auto) 0.9 (0-4) % Baso % (Auto) 0.5 (0-2) % Lymph # (Auto) 2.6 (1.2-4.9) X10*3/uL [place] # (Auto) 0.7 (0.1-1.2) X10*3/uL Eos # (Auto) 0.1 (0.0-0.4) X10*3/uL Baso # (Auto) 0.1 (0.0-0.2) X10*3/uL Abs Immat Gran (auto) 0.03 (0.00-0.03) X10*3/uL Absolute Neuts (auto) 5.7 (2.0-8.3) x10*3/uL Absolute Nucleated RBC 0.000 (0.0-0.012) X10*3/uL Nucleated RBC % (auto) 0.0 (0.0-0.2) /100WBC Sodium 141 (135-145) mmol/L Potassium 4.4 (3.3-5.1) mmol/L Chloride 107 (96-108) mmol/L Carbon Dioxide 26 (22-29) mmol/L Anion Gap 12 (12-20) BUN 16 (9-16) mg/dL Creatinine 0.78 (0.5-1.4) mg/dL Estim Creat Clear Calc 174.5 Estimated GFR > 60 Random Glucose 144 H (60-115) mg/dL Lactic Acid 1.7 (0.5-2.0) mmol/L Calcium 9.5 (8.4-10.2) mg/dL Magnesium 1.9 (1.6-2.6) mg/dL Total Bilirubin 2.5 H (0.0-1.0) mg/dL AST 35 (5-37) U/L ALT 33 (0-40) U/L Alkaline Phosphatase 91 (39-117) U/L Total Protein 8.0 (6.5-8.0) g/dL Albumin 4.7 (3.5-5.0) g/dL External Record Review External record reviewed: Inpatient record, Office record and Outpatient record Chronic Conditions Patient?s care impacted by: Diabetes and Other (Hypothyroidism, hepatomegaly, hepatic steatosis,) Discharge Plan Discharge Clinical Impression: Cellulitis Patient Disposition: Admitted As Inpatient
[2024-12-23 11:11] LABS: MANUAL DIFF FLAG NO
[2024-12-23 11:13] LABS: Hematocrit 40.2 % (42.0-52.0); Hemoglobin 13.3 g/dl (14.0-18.0); Imm Gran Abs Auto 0.03 X10*3/uL (0.00-0.03); Imm Gran Pct Auto 0.3 % (0.0-0.4); Lymphocytes Absolute Auto 2.6 X10*3/uL (1.2-4.9); Mean Corpuscular HGB Conc 33.1 g/dl (31.0-36.0); Mean Corpuscular Hemoglobin 32.6 pg (27.0-33.0); Mean Corpuscular Volume 98.5 fL (80.0-98.0); NRBC Abs Auto 0.000 X10*3/uL (0.0-0.012); NRBC Pct Auto 0.0 /100WBC (0.0-0.2); Platelet Count 135 X10*3/uL (160-400); Red Blood Count 4.08 X10*6/uL (4.60-5.80); White Blood Count 9.2 X10*3/uL (4.8-10.8)
[2024-12-23] MEDS: vancomycin/NS 2,000 MG/500 ML PLAST..BAG 250 MG IV (11:20)
[2024-12-23 11:26] LABS: Alanine Aminotransferase 33 U/L (0-40); Albumin Level 4.7 g/dL (3.5-5.0); Alkaline Phosphatase 91 U/L (39-117); Anion Gap 12 (12-20); Aspartate Amino Transferase 35 U/L (5-37); Blood Urea Nitrogen 16 mg/dL (9-16); Calcium 9.5 mg/dL (8.4-10.2); Carbon Dioxide 26 mmol/L (22-29); Chloride 107 mmol/L (96-108); Creatinine Clr Calc Pharmacy 174.5; Estimated Glomerular Filt Rate > 60; Magnesium 1.9 mg/dL (1.6-2.6); Potassium 4.4 mmol/L (3.3-5.1); Sodium 141 mmol/L (135-145); Total Protein 8.0 g/dL (6.5-8.0)
--- NOTE | 2024-12-23 12:03 | PC.NURSE ---
patient a&ox3, rr equal/non labored, iv inserted, labs drawn, pt medicated with antibiotics per order, provider attempted aspiration of area to posterior head- dressing was applied to wound by provider, plan of care ongoin
--- OUTSIDE RECORDS SUMMARY | 2024-12-23 12:08 | XMS_ITS | Encounter Summary ---
Author Organization [employer] Address [address] [place] [address] [address], [place] [address] Care Team Providers Care Advanced Manufacturing Consultant Name Role Phone Unavailable Primary Care Provider Unavailabl e Reason for Visit * Reason Onset Date Comments insurance 03/19/2024 Encounter Details Date Type Department Care Team ([facility] st Contact Info) Description 03/19/2024 Telephone [facility] [address] [place] [address] Marcial Tamez insurance Social History Tobacco Use [...]
--- OUTSIDE RECORDS SUMMARY | 2024-12-23 12:08 | XMS_ITS | Encounter Summary ---
Author Organization [employer] Address [address] [place] [address] [address], [place] [address] Care Team Providers Care Customer Accounts Advisor Name Role Phone Unavailable Primary Care Provider Unavailabl e Encounter Details Date Type Department Care Team (Latest Contact Info) Description 07/19/2021 Abstract [facility] CONVERSIONS Dental, Provider, DDS Social History Tobacco [...]
--- OUTSIDE RECORDS SUMMARY | 2024-12-23 12:09 | XMS_ITS | Clinical Summary ---
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 Social History Tobacco Use Types Packs/Day Years [...] DTaP/Tdap/Td Vaccines (1 - Tdap) 02/13/2014 02/12/2014 Dental Oral Exam 03/07/2024 09/04/2023, , 05/24/2017, Additional history exists Dental Prophylaxis 03/07/2024 09/04/2023, 0 07/19/2021, 10/09/2018, Additional history exists Dental X-Ray: Bitewings 09/04/2024 09/04/19, 07/03/2023, 12/20/2021, Additional history exists COVID-19 Vaccine ( season) 2024 01/11/2022, 07/22/2020, 06/24/2020 Influenza Vaccine (#1) 2024 01/13/2020, 2019 Tobacco Screening 01/02/2025 01/03/2024 Zoster Vaccines (1 of 2) 09/21/2025 Dental X-Ray: Full Mouth 09/04/2026 09/04/2023, 02/26 RSV Patients and Patients Aged 60 years or older (1 - 1-dose 75+ series) 09/21/2050 Pneumococcal Vaccine: Pediatrics (0 to 5 Years) and At-Risk Patients (6 to 49) Years Aged Out 07/19/2022 No longer eligible based [...] Most Recently Relevant to Health Maintenance Insurance [facility]
--- OUTSIDE RECORDS SUMMARY | 2024-12-23 12:09 | XMS_ITS | Data Portability ---
Author Organization [place] - [facility] [address] Address [address] [place] [address] Assessment No assessment recorded. Plan of Treatment [...] Address Organization Details Recorded Time Diabetes mellitus [id number] Active [place] null, [place] - [facility] 4 10:53:58 Problem Notes None recorded. Procedures Surgical History Date Name Laterality Status Provider Name and Address Organization Details Recorded Time 4 OC-UDS Send Out Template NON DOT completed [place] [place] - [facility] 01/16/2024 11:01:18 4 OC-DOT PHYSICAL completed [place]le [place] - [facility] 01/16/2024 10:51:17 Imaging [...] Body mass index (BMI) Body weight Systolic And Diastolic Provider Name and Address Organization Details Last Updated DateTime 193.04 cm 97.9 [degF] 99 % 99 % 64 /min 16 /min 33.2 kg/m2 240220. 72 g 138/86 mm[Hg] [place]le [place] - [facility] 10:51:52 Social History Question Answer Notes LastModified by Organizat ion Details LastModified Time Tobacco Smoking Status Never Smoker Sparkle John sharma [place] - [facility] 01/16/2024 10:54:13 Have [...] Diagnosis SNOMED-CT Code Diagnosis ICD10 Code Diagnosis IMO Codes Diagnosis Note [id number] [address] [place] [address] 03/02/2021 08:39:21 03/02/2021 12:07:20 [id number] ROBBIN Stephen [address] [place] [address] 01/16/2024 10:31:17 01/16/2024 11:27:13 History and physical examination, occupation [id number] Z02.1 The patient was given a 1 year DOT certificat ion given. Controlled DM2 Refer to scanned DOT physical exam forms and DOT certificat e for exam findings. 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
--- OUTSIDE RECORDS SUMMARY | 2024-12-23 12:09 | XMS_ITS | Encounter Summary ---
Author Organization [employer] Address [address] [place] [address] [address] [address] Care Team Providers Care Child Nurse Name Role Phone Unavailable Primary Care Provider Unavailabl e Reason for Visit * Reason Comments Med Refill Encounter Details Date Type Department Care Team (Late st Contact Info) Description 06/21/2024 Refill [facility] [address] [place] [address] Carlos Cerna DDS [address] [place] [address] Social History Tobacco Use Types Packs/Day Years [...]
--- OUTSIDE RECORDS SUMMARY | 2024-12-23 12:09 | XMS_ITS | Encounter Summary ---
Author Organization [employer] Address [address] [place] [address] [address] [address] Care Team Providers Care Gambreler Name Role Phone Unavailable Primary Care Provider [...]
--- NOTE | 2024-12-23 13:05 | PM.IMHP ---
History of Present Illness Date of Service: 12/23/24 Chief Complaint: redness and swelling to occipital head 49-year-old male with medical history of hypothyroidism, hepatomegaly, hepatic steatosis, T2DM, presents to ED due to mass located on the occipital region of the midline scalp. Patient states this mass began on Tuesday 12/19 and came to the department for evaluation. CT scans were done and negative for abscess or gas in soft tissues. Patient was prescribed Keflex and doxycycline for coverage, and has been taking these medications. Reports that yesterday he noticed that he started getting some discharge from the area and felt like he had chills. He denied any nausea, vomiting, diarrhea, fever. In the ER, needle placed but no drainage. Patient was given a dose of vancomycin. Patient will be placed on observation for monitoring of cellulitic area. Review of Systems Review of Systems: Denies any recent fever chills or decrease in appetite respiratory denies any shortness of breath or cough cardiovascular denied chest pain gastrointestinal denies any dysphagia abdominal pain nausea vomiting or diarrhea genitourinary denies any dysuria frequency or hematuria musculoskeletal denies any joint pain or swelling neuropsych denies any weakness or seizures all other systems reviewed are negative ON LICENSE OF [facility] Medical History Hepatomegaly Type 2 diabetes mellitus Fatty liver DM (diabetes mellitus), type 2 with ophthalmic complications Kidney stones Hypothyroid Family History Father Stroke Heart attack Low blood pressure Mother No problems noted. Daughter No problems noted. Surgical History Hx of colonoscopy History of total right knee replacement (~09/2019) History of arthroscopy of right knee (~03/29/16) Social History Household Members: Family Housing: Apartment Are you a primary care program director to a significant other at home: Yes Do you presently have visiting nurse or other home services: No Alcohol intake: never Patient Tobacco Use Status: Never used Tobacco Smoked in Last 30 Days: No e-Cigarette/Vaping Use: Never Used Use of substances other than those prescribed or required for medical reasons: No Advance Directives: No Advance Directives Information Provided: Yes Current occupational status: employed 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 Cognitive needs: No Hearing needs: No Vision needs: No Meds Allergies Allergy/AdvReac Type Severity Reaction Status Date / Time No Known Allergies (No Known Allergy Verified 12/23/24 09:32 Allergies*) Active Medications: Current Medications Acetaminophen (Acetaminophen 325 Mg Tablet) 650 mg PO Q6H PRN PRN Reason: Pain, Mild 1-3,fever,headache Acetaminophen (Acetaminophen 325 Mg Tablet) 650 mg PO Q6H PRN PRN Reason: Pain, Mild 1-3,fever,headache Calcium Carbonate (Calcium Carbonate 750 Mg Tab.Chew) 750 mg PO Q4H PRN PRN Reason: Heartburn Calcium Carbonate (Calcium Carbonate 750 Mg Tab.Chew) 750 mg PO Q4H PRN PRN Reason: Heartburn Magnesium Hydroxide (Milk Of Magnesia 30 Ml Oral.Susp) 30 ml PO DAILY PRN PRN Reason: Constipation Magnesium Hydroxide (Milk Of Magnesia 30 Ml Oral.Susp) 30 ml PO DAILY PRN PRN Reason: Constipation Melatonin (Melatonin 3 Mg Tablet) 6 mg PO BEDTIME PRN PRN Reason: Insomnia Melatonin (Melatonin 3 Mg Tablet) 6 mg PO BEDTIME PRN PRN Reason: Insomnia Ondansetron HCl (Ondansetron Hcl 4 Mg/2 Ml Vial) 4 mg IVPUSH Q8H PRN PRN Reason: Nausea and Vomiting Sodium Chloride (0.9 % Sodium Chloride Flush 3 Ml Syringe) 3 ml IVFLUSH QSHIFT [facility] Sodium Chloride (0.9 % Sodium Chloride Flush 3 Ml Syringe) 3 ml IVFLUSH QSHIFT [facility] Home Medications ?Medication ?Instructions ?Recorded ?Confirmed ?Last Taken ?Type metformin 500 mg tablet,extended 500 mg PO DAILY 04/28/24 12/23/24 Unknown History release 24 hr Physical Exam Vital Signs and Narrative: Vital Signs: Last Vital Signs Temp 98 F 12/23/24 09:30 Pulse 81 12/23/24 09:30 Resp 18 12/23/24 09:30 BP 136/90 H 12/23/24 09:30 Pulse Ox 98 12/23/24 09:30 O2 Del Method Room Air 12/23/24 09:30 BMI result Body Mass Index 37.3 Appearing in no acute distress head is normocephalic atraumatic eyes pupils are PERRLA sclera is anicteric mouth throat mucous membranes are intact and moist neck is supple no lymphadenopathy, no JVD noted lung sounds are clear to auscultation heart regular rate rhythm, clear S1, S2 positive bowel sounds, abdomen is soft, nontender neuro patient is alert x3, no focal deficits Erythema edema to occipital area Results Labs 12/23/24 11:05 12/23/24 11:05 Labs: Laboratory Results - last 24 hr 12/23/24 11:05 MCV 98.5 H MCH 32.6 MCHC 33.1 RDW 12.1 Plt Count 135 L D MPV 12.0 Immature Gran % (Auto) 0.3 Neut % (Auto) 61.9 Lymph % (Auto) 28.5 [place] % (Auto) 7.9 Eos % (Auto) 0.9 Baso % (Auto) 0.5 Lymph # (Auto) 2.6 [place] # (Auto) 0.7 Eos # (Auto) 0.1 Baso # (Auto) 0.1 Abs Immat Gran (auto) 0.03 Absolute Neuts (auto) 5.7 Absolute Nucleated RBC 0.000 Nucleated RBC % (auto) 0.0 Anion Gap 12 Estim Creat Clear Calc 174.5 Estimated GFR > 60 Random Glucose 144 H Lactic Acid 1.7 Calcium 9.5 Magnesium 1.9 Total Bilirubin 2.5 H AST 35 ALT 33 Alkaline Phosphatase 91 Total Protein 8.0 Albumin 4.7 Assessment and Plan (1) Diabetes: Status: Acute Plan 49-year-old man admitted with cellulitis to occipital area of head, failed outpatient treatment Cellulitis Located to occipital area Bedside ultrasound showed no fluid Soft tissue neck CT on 12/20/2024 showed soft tissue edema with no discrete abscess Failed outpatient treatment Start vancomycin IV ID consultation Warm compress every 4 hours Diabetes mellitus type 2 sliding scale, ADA diet Continue metformin Hypothyroidism Continue levothyroxine Normocytic anemia No obvious bleeding No need for blood transfusion at this time DVT prophylaxis with Lovenox Full code Quality Stroke Does the patient have a stroke diagnosis?: No VTE Prior VTE?: No VTE Risk Level:: Medical - moderate - high VTE Device Contraindication: Treatment Not Indicated VTE Drug Contraindication: N/A - Med Ordered
[2024-12-23 13:43] VITALS: BP 117/81; PULSE 82; RESP 18; O2SAT 99
--- NOTE | 2024-12-23 13:47 | PHA.PROG ---
Admission Date/Time: December 23, 2024 12:57 Indication: OTHER Weight in k.071 kg Adjusted body weight in Kg: Hiller body weight in Kg: Obesity Dosing Indication % IBW: Serum Creatinine - Last 168 Hours 12/23/24 11:05 Creatinine 0.78 Estimated CrCl and GFR - Last 168 Hours 12/23/24 11:05 Estim Creat Clear Calc 174.5 Estimated GFR > 60 Vancomycin Loading Dose: 2000 MG Current Vancomycin Dosing Regimen: 1250 MG Q12H Vancomycin Monitoring using AUC goal of 400 - 600 range with trough as surrogate marker: TVJ=523 TROUGH=15.3 Date and Time for next Vancomycin Level to be drawn: 12/24/2024 @2100 Pharmacist Comments on Vancomycin Plan: Vancomycin dosing will take advantage of [employer] as a clinical decision support tool that uses Bayesian modeling to calculate individual patient's pharmacokinetic parameters and forecast the patient's drug concentration time course with the target goal AUC 24 range of 400 - 600 mg/L/hr.
--- NOTE | 2024-12-23 14:10 | PHA.MEDREC ---
Pharmacy Consult ? Medication Reconciliation Pharmacy has completed the medication reconciliation.Med rec complete, spoke to patient and compared with pharmacy claim history. Patient did state he had lost his insurance and run out of jardiance, and januvia but believes he is still supoosed to be taking these
[2024-12-23 15:40] VITALS: BP 138/68; PULSE 81; RESP 16; TEMP 36.6; O2SAT 98
--- NOTE | 2024-12-23 17:25 | PC.NURSE ---
POC Glucose 218. Per sliding scale, patient is supposed to be given 4 units of insulin. Patient states that he has never used insulin before, just diet management and Metformin. [employer] message sent to Arabella Limon NP regarding this, awaiting response.
[2024-12-23 17:39] LABS: Glucose, Whole Blood 218 mg/dL (60-115)
[2024-12-23] MEDS: 0.9 % Sodium Chloride Flush 3 ML SYRINGE IVFLUSH ×2 (17:40→22:36)
[2024-12-23 19:51] VITALS: BP 125/66; PULSE 84; RESP 20; TEMP 36.8; O2SAT 97
[2024-12-23 20:42] LABS: Glucose, Whole Blood 129 mg/dL (60-115)
[2024-12-23 21:20] VITALS: BMI 38.0
[2024-12-23 21:41] VITALS: BP 142/70; PULSE 85; RESP 19; TEMP 36.5; O2SAT 97
[2024-12-23] MEDS: Flu Vacc TS2025-26(6mo up)/PF 0.5 ML SYRINGE IM (22:29)
[2024-12-23 23:55] VITALS: BP 120/60; PULSE 80; RESP 16; TEMP 37.2; O2SAT 97
--- NOTE | 2024-12-24 00:17 | W.PM.IDCN ---
History of Present Illness Data of Consult Service Date: 12/23/24 Requesting physician: Arabella Limon Primary Care Provider: Gonsalo Jean Baptiste PRESSING MACHINE TENDER- HPI Reason for consult: neck cellulitis,possible furuncle He presents with redness and swelling posterior neck since December 19. On SundayDecember 20 patient described leakage from area and came to ER. He was prescribed Keflex 500 mg every 6 hours and Doxycycline 100 mg po bid and reports good adherence and became worse. He has no fever or chills at this time. Review of Systems Review of Systems: Yes all other systems are reviewed and are negative [facility] Past Medical History Medical History Hepatomegaly Type 2 diabetes mellitus Fatty liver DM (diabetes mellitus), type 2 with ophthalmic complications Kidney stones Hypothyroid Family History Family History Father Stroke Heart attack Low blood pressure Mother No problems noted. Daughter No problems noted. 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 Cognitive needs: No Hearing needs: No Vision needs: No Meds Allergies Allergy/AdvReac Type Severity Reaction Status Date / Time No Known Allergies (No Known Allergy Verified 12/23/24 09:32 Allergies*) Active Medications: Current Medications Acetaminophen (Acetaminophen 325 Mg Tablet) 650 mg PO Q6H PRN PRN Reason: Pain, Mild 1-3,fever,headache Atorvastatin Calcium (Atorvastatin Calcium 10 Mg Tablet) 10 mg PO DAILY FRANDY Calcium Carbonate (Calcium Carbonate 750 Mg Tab.Chew) 750 mg PO Q4H PRN PRN Reason: Heartburn Dextrose (Dextrose 50 % 25 Gm/50 Ml Syringe) 25 gm IVPUSH Q15M PRN; Protocol PRN Reason: per Hypoglycemia Standing Ord. Enoxaparin Sodium (Enoxaparin Sodium 40 Mg/0.4 Ml Syringe) 40 mg SUBCUT Q24H [facility] Last Admin: 12/23/24 14:06 Dose: 40 mg Glucose (Glucose Gel 15 Gm Gel..Gram.) 15 gm PO Q15M PRN; Protocol PRN Reason: per Hypoglycemia Standing Ord. Vancomycin HCl 1,250 mg/ (Sodium Chloride) 250 mls @ 166.667 mls/hr IV Q12H [facility] Last Infusion: 12/24/24 00:09 Dose: Infused Insulin Human Lispro (Insulin Lispro 100 Unit/Ml 3 Ml Vial) 0 unit SUBCUT QIDACHS [facility]; Protocol Last Admin: 12/23/24 20:47 Dose: Not Given Levothyroxine Sodium (Levothyroxine Sodium 150 Mcg Tablet) 150 mcg PO DAILY@0630 [facility] Magnesium Hydroxide (Milk Of Magnesia 30 Ml Oral.Susp) 30 ml PO DAILY PRN PRN Reason: Constipation Melatonin (Melatonin 3 Mg Tablet) 6 mg PO BEDTIME PRN PRN Reason: Insomnia Metformin HCl (Metformin Hcl Er 500 Mg Tab.Er.24h) 500 mg PO DAILY [facility] Ondansetron HCl (Ondansetron Hcl 4 Mg/2 Ml Vial) 4 mg IVPUSH Q8H PRN PRN Reason: Nausea and Vomiting Pharmacy Consult (Consult Rx Vancomycin Dosing) 1 each MISCELLANE DAILY PRN PRN Reason: Consult order Sodium Chloride (0.9 % Sodium Chloride Flush 3 Ml Syringe) 3 ml IVFLUSH QSHIFT [facility] Last Admin: 12/23/24 22:36 Dose: 3 ml Vitamin D (Cholecalciferol (Vitamin D3) 25 Mcg Tablet) 50 mcg PO DAILY [facility] Home Medications ?Medication ?Instructions ?Recorded ?Confirmed ?Last Taken ?Type metformin 500 mg tablet,extended 500 mg PO DAILY 04/28/24 12/23/24 Unknown History release 24 hr Physical Exam Vital Signs: Vital Signs: Last Vital Signs Temp 98.9 F 12/23/24 23:55 Pulse 80 12/23/24 23:55 Resp 16 12/23/24 23:55 BP 120/60 12/23/24 23:55 Pulse Ox 97 12/23/24 23:55 O2 Del Method Room Air 12/23/24 23:55 BMI result Body Mass Index 38.0 Const: General: cooperative HEENT: Head: Yes normal to inspection Face and sinus: Yes normal facial exam Mouth: Normal oral and palatal mucosa present Teeth and gingiva: dentition normal Eyes: General: appearance normal, both eyes and all related structures Pupils: Equal, round and reactive pupils present Neck: Other: purulence slight posterior neck swelling Resp: Effort & Inspection: normal respiratory effort Cardio: Rate: regular rate Rhythm: regular rhythm GI: Palpation (GI): Soft to palpation and nontender : General: Yes no CVA tenderness Back/Spine/Pelvis: Back: no CVA tenderness Skin: General skin exam: no rashes or lesions noted Neuro: General: moves all extremities Cranial nerves: Yes Equal, round and reactive pupils present Extrem: General: Yes normal to inspection Psych: Appearance: grossly normal Results Labs 12/23/24 11:05 12/23/24 11:05 Labs: Short CBC 12/23/24 Range/Units 11:05 WBC 9.2 (4.8-10.8) X10*3/uL Hgb 13.3 L (14.0-18.0) g/dl Hct 40.2 L (42.0-52.0) % Plt Count 135 L D (160-400) X10*3/uL BMP 12/23/24 11:05 Sodium 141 Potassium 4.4 Chloride 107 Carbon Dioxide 26 BUN 16 Creatinine 0.78 Calcium 9.5 Liver Function 12/23/24 Range/Units 11:05 Total Bilirubin 2.5 H (0.0-1.0) mg/dL AST 35 (5-37) U/L ALT 33 (0-40) U/L Alkaline Phosphatase 91 (39-117) U/L Albumin 4.7 (3.5-5.0) g/dL Assessment and Plan (1) Dermatitis: Status: Acute Plan He has worsening discomfort despite being on IV antibiotics. Continue Vancomycin,duration to be determined and await cultres Check HIV test
[2024-12-24 03:34] VITALS: BP 106/53; PULSE 82; RESP 16; TEMP 36.7; O2SAT 96
[2024-12-24 07:01] LABS: Anion Gap 12 (12-20); Blood Urea Nitrogen 15 mg/dL (9-16); Calcium 8.9 mg/dL (8.4-10.2); Carbon Dioxide 24 mmol/L (22-29); Chloride 108 mmol/L (96-108); Creatinine Clr Calc Pharmacy 167.6; Estimated Glomerular Filt Rate > 60; Potassium 4.1 mmol/L (3.3-5.1); Sodium 140 mmol/L (135-145)
[2024-12-24 07:04] LABS: Hematocrit 35.8 % (42.0-52.0); Hemoglobin 11.8 g/dl (14.0-18.0); Mean Corpuscular HGB Conc 33.0 g/dl (31.0-36.0); Mean Corpuscular Hemoglobin 32.2 pg (27.0-33.0); Mean Corpuscular Volume 97.8 fL (80.0-98.0); NRBC Abs Auto 0.000 X10*3/uL (0.0-0.012); NRBC Pct Auto 0.0 /100WBC (0.0-0.2); Platelet Count 127 X10*3/uL (160-400); Red Blood Count 3.66 X10*6/uL (4.60-5.80); White Blood Count 7.7 X10*3/uL (4.8-10.8)
[2024-12-24 07:07] VITALS: BP 107/55; PULSE 80; RESP 16; TEMP 37; O2SAT 94
[2024-12-24 07:18] LABS: Glucose, Whole Blood 165 mg/dL (60-115)
[2024-12-24] MEDS: 0.9 % Sodium Chloride Flush 3 ML SYRINGE IVFLUSH ×3 (07:46→22:30)
--- NOTE | 2024-12-24 09:39 | MHC.CM.PN ---
[facility] delivered. Patient lives at home w/ girlfriend. Independent w/ all care. Denies use of DME or services. PCP Gonsalo Jean Baptiste PIN PULLER Reports HCP is his daughter, Kiesha Roberson. Copy requested. No active insurance. States he had insurance from [employer], but it was cancelled for nonpayment. Referral to financial services. DP: Potential need for IV abx on dc. Per ID await final cx. Referral to [facility]. If not needed, patient will dc home self care. Car in lot for self transport.
[2024-12-24 11:33] LABS: Glucose, Whole Blood 249 mg/dL (60-115)
[2024-12-24 12:00] VITALS: BP 125/60; PULSE 87; RESP 16; TEMP 36.4; O2SAT 95
--- NOTE | 2024-12-24 12:24 | P.PNIM_ITS ---
Subjective Subjective Date of Service: 12/24/24 Interval History: Patient seen and examined at bedside this morning, patient states that he persists with pain in his back, currently on IV antibiotics. Patient mentions that he had hair cut down with clippers about 3 weeks ago, subsequently developed lesions. Review of Systems Review of Systems: Yes all other systems are reviewed and are negative Physical Exam 2 Exam: Exam: General: AxOx3, No acute distress Head: AT/NC ENT: Moist mucous membranes Neck: supple, occipital area w/ dressing in place, soft mass, mildly tender CVS; RRR, S1 S2 normal Lungs: Clear bilateral breath sounds, no wheezes or crackles Abd: Soft non tender, non distended Ext: No edema and no calf tenderness MSK: moving all 4 limbs Skin: No cyanosis or edema Psych: Cooperative with exam Neurology: no focal deficit Vital Signs: Vital Signs: Last Vital Signs Temp 97.6 F 12/24/24 12:00 Pulse 87 12/24/24 12:00 Resp 16 12/24/24 12:00 BP 125/60 12/24/24 12:00 Pulse Ox 95 12/24/24 12:00 O2 Del Method Room Air 12/24/24 12:00 BMI result Body Mass Index 38.0 Objective Data Active Medications Acetaminophen (Acetaminophen 325 Mg Tablet) 650 mg PO Q6H PRN PRN Reason: Pain, Mild 1-3,fever,headache Atorvastatin Calcium (Atorvastatin Calcium 10 Mg Tablet) 10 mg PO DAILY [facility] Last Admin: 12/24/24 07:45 Dose: 10 mg Documented By: VERONA Calcium Carbonate (Calcium Carbonate 750 Mg Tab.Chew) 750 mg PO Q4H PRN PRN Reason: Heartburn Dextrose (Dextrose 50 % 25 Gm/50 Ml Syringe) 25 gm IVPUSH Q15M PRN; Protocol PRN Reason: per Hypoglycemia Standing Ord. Enoxaparin Sodium (Enoxaparin Sodium 40 Mg/0.4 Ml Syringe) 40 mg SUBCUT Q24H [facility] Last Admin: 12/23/24 14:06 Dose: 40 mg Documented By: TEJ Glucose (Glucose Gel 15 Gm Gel..Gram.) 15 gm PO Q15M PRN; Protocol PRN Reason: per Hypoglycemia Standing Ord. Vancomycin HCl 1,250 mg/ (Sodium Chloride) 250 mls @ 166.667 mls/hr IV Q12H [facility] Last Infusion: 10/29/25 11:43 Dose: Infused Documented By: VERONA Insulin Human Lispro (Insulin Lispro 100 Unit/Ml 3 Ml Vial) 0 unit SUBCUT QIDACHS [facility]; Protocol Last Admin: 12/24/24 11:36 Dose: 4 unit Documented By: VERONA Levothyroxine Sodium (Levothyroxine Sodium 150 Mcg Tablet) 150 mcg PO DAILY@0630 [facility] Last Admin: 12/24/24 05:34 Dose: 150 mcg Documented By: RAGINI Magnesium Hydroxide (Milk Of Magnesia 30 Ml Oral.Susp) 30 ml PO DAILY PRN PRN Reason: Constipation Melatonin (Melatonin 3 Mg Tablet) 6 mg PO BEDTIME PRN PRN Reason: Insomnia Metformin HCl (Metformin Hcl Er 500 Mg Tab.Er.24h) 500 mg PO DAILY [facility] Last Admin: 12/24/24 07:45 Dose: 500 mg Documented By: VERONA Ondansetron HCl (Ondansetron Hcl 4 Mg/2 Ml Vial) 4 mg IVPUSH Q8H PRN PRN Reason: Nausea and Vomiting Pharmacy Consult (Consult Rx Vancomycin Dosing) 1 each MISCELLANE DAILY PRN PRN Reason: Consult order Sodium Chloride (0.9 % Sodium Chloride Flush 3 Ml Syringe) 3 ml IVFLUSH QSHIFT [facility] Last Admin: 12/24/24 07:46 Dose: 3 ml Documented By: VERONA Vitamin D (Cholecalciferol (Vitamin D3) 25 Mcg Tablet) 50 mcg PO DAILY [facility] Last Admin: 12/24/24 07:45 Dose: 50 mcg Documented By: VERONA Labs 12/24/24 06:32 12/24/24 06:32 Labs: Laboratory Results - last 24 hr 12/23/24 12/23/24 12/24/24 17:14 20:38 06:32 MCV 97.8 MCH 32.2 MCHC 33.0 RDW 11.9 Plt Count 127 L MPV 12.4 Absolute Nucleated RBC 0.000 Nucleated RBC % (auto) 0.0 Anion Gap 12 Estim Creat Clear Calc 167.6 Estimated GFR > 60 POC Glucose 218 H 129 H Random Glucose 151 H Calcium 8.9 D 12/24/24 12/24/24 07:15 11:30 MCV MCH MCHC RDW Plt Count MPV Absolute Nucleated RBC Nucleated RBC % (auto) Anion Gap Estim Creat Clear Calc Estimated GFR POC Glucose 165 H 249 H Random Glucose Calcium Assessment and Plan (1) Type 2 diabetes mellitus: Status: Acute (2) Cellulitis: Status: Acute Plan 49-year-old man admitted with cellulitis to occipital area of head, failed outpatient treatment Cellulitis w/ failed outpatient tx Located to occipital area Soft tissue neck CT on 12/20/2024 showed soft tissue edema with no discrete abscess, will repeat US to rule out abscess Continue vancomycin IV ID consultation Warm compress every 4 hours Diabetes mellitus type 2, chronic sliding scale, ADA diet Continue metformin Hypothyroidism Continue levothyroxine Normocytic anemia No obvious bleeding No need for blood transfusion at this time DVT prophylaxis with Lovenox Full code Quality Stroke Does the patient have a stroke diagnosis?: No VTE Prior VTE?: No VTE Risk Level:: Medical - moderate - high VTE Device Contraindication: Treatment Not Indicated VTE Drug Contraindication: N/A - Med Ordered
[2024-12-24 15:40] VITALS: BP 125/67; PULSE 84; RESP 16; TEMP 36.2; O2SAT 95
[2024-12-24 15:48] LABS: Glucose, Whole Blood 132 mg/dL (60-115)
--- OUTSIDE RECORDS SUMMARY | 2024-12-24 17:00 | XMS_ITS | Clinical Summary ---
Author Organization [email or web address] Address [address] [place] [address] [address] [place] [address] Care Team Providers Care Tool Dresser Name Role Phone Unavailable Primary Care Provider [...] Most Recently Relevant to Health Maintenance Insurance [facility]
--- OUTSIDE RECORDS SUMMARY | 2024-12-24 17:00 | XMS_ITS | Encounter Summary ---
Author Organization [employer] Address [address] [place] [address] [address], [place] [address] Care Team Providers Care Shelving Supervisor Name Role Phone Unavailable Primary Care Provider Unavailabl e Reason for Visit * Reason Comments Med Refill Encounter Details Date Type Department Care Team (Late st Contact Info) Description 06/21/2024 Refill [facility] [address] [place] [address] Carlos Cerna DDS [address] [place] [address] Social History Tobacco Use Types Packs/Day Years [...]
--- OUTSIDE RECORDS SUMMARY | 2024-12-24 17:00 | XMS_ITS | Encounter Summary ---
Author Organization [employer] Address [address] [place] [address] [address] [address] Care Team Providers Care Costume Mistress Name Role Phone Unavailable Primary Care Provider Unavailabl e Encounter Details Date Type Department Care Team (Latest Contact Info) Description 10/09/2018 Abstract [facility] CONVERSIONS Dental, Provider, DDS Social [...]
--- OUTSIDE RECORDS SUMMARY | 2024-12-24 17:00 | XMS_ITS | Encounter Summary ---
Author Organization [employer] Address [address] [place] [address] [address] [address] Care Team Providers Care Grader Patrol Name Role Phone Unavailable Primary Care Provider Unavailabl e Encounter Details Date Type Department Care Team (Latest Contact Info) Description 07/19/2021 Abstract [facility] CONVERSIONS Dental, Provider, DDS Social [...]
--- OUTSIDE RECORDS SUMMARY | 2024-12-24 17:00 | XMS_ITS | Encounter Summary ---
Author Organization [employer] Address [address] [place] [address] [address] [address] Care Team Providers Care Director Of Corporate Sponsorships Name Role Phone Unavailable Primary Care Provider Unavailabl e Reason for Visit * Reason Onset Date Comments insurance 03/19/2024 Encounter Details Date Type Department Care Team ([facility] st Contact Info) Description 03/19/2024 Telephone [facility] [address] [place] [address] Marcial Tamez insurance Social History Tobacco Use [...]
[2024-12-24 20:00] VITALS: BP 137/79; PULSE 82; RESP 18; TEMP 36.4; O2SAT 97
[2024-12-24 20:16] LABS: Glucose, Whole Blood 185 mg/dL (60-115)
[2024-12-25 03:43] VITALS: BP 120/69; PULSE 74; RESP 18; TEMP 36.4; O2SAT 95
[2024-12-25 07:05] LABS: Creatinine Clr Calc Pharmacy 202.1; Estimated Glomerular Filt Rate > 60
[2024-12-25 07:22] LABS: Glucose, Whole Blood 145 mg/dL (60-115)
[2024-12-25] MEDS: 0.9 % Sodium Chloride Flush 3 ML SYRINGE IVFLUSH (07:26)
[2024-12-25 07:38] VITALS: BP 128/74; PULSE 78; RESP 18; TEMP 36.3; O2SAT 95
[2024-12-25 11:18] LABS: Glucose, Whole Blood 218 mg/dL (60-115)
--- NOTE | 2024-12-25 13:04 | MHC.CM.PN ---
Per MD rounds potential dc today pending general surgery consult. Patient believes he may have active [facility] now. He will follow up w/ PCP. He was also provided w/ schedule for [facility] for free wound care. His girlfriend will plan to come to [facility] for wound care teach prior to dc.
--- NOTE | 2024-12-25 13:17 | P.CONGS_ITS ---
History of Present Illness Consult details Consult date: 12/25/24 <Sedrick Díaz PA-C - Last Filed: 12/25/24 13:47> Requesting physician: Carlos Abrams <Sedrick Díaz PA-C - Last Filed: 12/25/24 13:47> Narrative: 49 year old male with a history of T2DM, Hypothyroid, kidney stones, seen in consult for a posterior neck abscess. This began late last week, causing pain and swelling of the area. He presented to the ED on 12/20 and was discharged on doxycycline, cephalexin. This did not improve the site, and on 12/23 began to drain small amounts of fluid, and the area continued to get larger. Bedside ultrasound showing no fluid collection. CT findings showing no abscess, only soft tissue swelling. Patient was started on vancomycin. Repeat ultrasound showing no fluid collection. Site continues to give him pain. He denies fevers or chills. <Sedrick Díaz PA-C - Last Filed: 12/25/24 13:47> [facility] Past Medical History Medical History: Medical History Hepatomegaly Type 2 diabetes mellitus Fatty liver DM (diabetes mellitus), type 2 with ophthalmic complications Kidney stones Hypothyroid <Sedrick Díaz PA-C - Last Filed: 12/25/24 13:47> Family History Family History: Family History Father Stroke Heart attack Low blood pressure Mother No problems noted. Daughter No problems noted. <Sedrick Díaz PA-C - Last Filed: 12/25/24 13:47> Family history: reviewed and not pertinent <Sedrick Díaz PA-C - Last Filed: 12/25/24 13:47> Surgical History Surgical History: Surgical History Hx of colonoscopy History of total right knee replacement (~09/2019) History of arthroscopy of right knee (~03/29/16) <Sedrick Díaz PA-C - Last Filed: 12/25/24 13:47> Social History Social History: Social History Household Members: Family Housing: Apartment Are you a primary summer child caregiver to a significant other at home: Yes Do you presently have visiting nurse or other home services: No Alcohol intake: never Patient Tobacco Use Status: Tobacco use Unknown e-Cigarette/Vaping Use: Never Used service: No Current occupational status: employed 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 Cognitive needs: No Hearing needs: No Vision needs: No <Sedrick Díaz PA-C - Last Filed: 12/25/24 13:47> Meds Allergies/Adverse reactions: Allergies Allergy/AdvReac Type Severity Reaction Status Date / Time No Known Allergies (No Known Allergy Verified 12/23/24 09:32 Allergies*) <Sedrick Díaz PA-C - Last Filed: 12/25/24 13:47> Active Medications: Current Medications Acetaminophen (Acetaminophen 325 Mg Tablet) 650 mg PO Q6H PRN PRN Reason: Pain, Mild 1-3,fever,headache Atorvastatin Calcium (Atorvastatin Calcium 10 Mg Tablet) 10 mg PO DAILY [facility] Last Admin: 12/25/24 07:25 Dose: 10 mg Calcium Carbonate (Calcium Carbonate 750 Mg Tab.Chew) 750 mg PO Q4H PRN PRN Reason: Heartburn Last Admin: 12/24/24 15:59 Dose: 750 mg Dextrose (Dextrose 50 % 25 Gm/50 Ml Syringe) 25 gm IVPUSH Q15M PRN; Protocol PRN Reason: per Hypoglycemia Standing Ord. Enoxaparin Sodium (Enoxaparin Sodium 40 Mg/0.4 Ml Syringe) 40 mg SUBCUT Q24H [facility] Last Admin: 12/25/24 12:41 Dose: 40 mg Glucose (Glucose Gel 15 Gm Gel..Gram.) 15 gm PO Q15M PRN; Protocol PRN Reason: per Hypoglycemia Standing Ord. Vancomycin HCl 1,250 mg/ (Sodium Chloride) 250 mls @ 166.667 mls/hr IV Q12H [facility] Last Infusion: 12/25/24 12:15 Dose: Infused Insulin Human Lispro (Insulin Lispro 100 Unit/Ml 3 Ml Vial) 0 unit SUBCUT QIDACHS [facility]; Protocol Last Admin: 12/25/24 11:30 Dose: 4 unit Levothyroxine Sodium (Levothyroxine Sodium 150 Mcg Tablet) 150 mcg PO DAILY@0630 [facility] Last Admin: 12/25/24 05:38 Dose: 150 mcg Magnesium Hydroxide (Milk Of Magnesia 30 Ml Oral.Susp) 30 ml PO DAILY PRN PRN Reason: Constipation Melatonin (Melatonin 3 Mg Tablet) 6 mg PO BEDTIME PRN PRN Reason: Insomnia Metformin HCl (Metformin Hcl Er 500 Mg Tab.Er.24h) 500 mg PO DAILY [facility] Last Admin: 12/25/24 07:25 Dose: 500 mg Ondansetron HCl (Ondansetron Hcl 4 Mg/2 Ml Vial) 4 mg IVPUSH Q8H PRN PRN Reason: Nausea and Vomiting Pharmacy Consult (Consult Rx Vancomycin Dosing) 1 each MISCELLANE DAILY PRN PRN Reason: Consult order Sodium Chloride (0.9 % Sodium Chloride Flush 3 Ml Syringe) 3 ml IVFLUSH QSHIFT [facility] Last Admin: 12/25/24 07:26 Dose: 3 ml Vitamin D (Cholecalciferol (Vitamin D3) 25 Mcg Tablet) 50 mcg PO DAILY [facility] Last Admin: 12/25/24 07:25 Dose: 50 mcg <KERRI Jeffrey Last Filed: 12/25/24 13:47> Home medications: Home Medications ?Medication ?Instructions ?Recorded ?Confirmed ?Last Taken ?Type metformin 500 mg tablet,extended 500 mg PO DAILY 04/2812/23/24 Unknown History release 24 hr <KERRI Jeffrey Last Filed: 12/25/24 13:47> Physical Exam 2 Vital Signs: Vital Signs: Last Vital Signs Temp 97.3 F 12/25/24 07:38 Pulse 78 12/25/24 07:38 Resp 18 12/25/24 07:38 BP 128/74 12/25/24 07:38 Pulse Ox 95 12/25/24 07:38 O2 Del Method Room Air 12/25/24 07:38 BMI result Body Mass Index 38.0 <KERRI Jeffrey Last Filed: 12/25/24 13:47> Const: General: comfortable and no acute distress <KERRI Jeffrey Last Filed: 12/25/24 13:47> Orientation/consciousness: patient oriented x3 <KERRI Jeffrey Last Filed: 12/25/24 13:47> HEENT: Head images: 1. 7 x 5 cm area of induration, small punctate area with minimal drainage. Tender to palpation, no redness, no warmth. No palpable fluctuance. Unable to express fluid. <Sedrick Díaz PA-C - Last Filed: 12/25/24 13:47> Neuro: General: patient oriented x3 <KERRI Jeffrey Last Filed: 12/25/24 13:47> Results Labs Result diagrams: 12/24/24 06:32 12/25/24 05:38 <KERRI Jeffrey Last Filed: 12/25/24 13:47> Labs: Abnormal lab results 12/24/24 12/24/24 12/24/24 Range/Units 15:44 20:12 20:45 POC Glucose 132 H 185 H (60-115) mg/dL Random Vancomycin 8.0 L (15-20) mcg/mL 12/25/24 12/25/24 Range/Units 07:15 11:15 POC Glucose 145 H 218 H (60-115) mg/dL Random Vancomycin (15-20) mcg/mL BMP 12/25/24 05:38 Creatinine 0.68 All other labs normal. <KERRI Jeffrey Last Filed: 12/25/24 13:47> Assessment and Plan (1) Cellulitis: Qualifiers: Laterality: right Site of cellulitis: extremity Site of cellulitis of extremity: lower extremity Qualified Code(s): L03.115 - Cellulitis of right lower limb <Sedrick Díaz PA-C [place] Last Filed: 12/25/24 13:47> Status: Acute <Sedrick Díaz PA-C [place] Last Filed: 12/25/24 13:47> 49 year old male with a history of T2DM, Hypothyroid, kidney stones, seen in consult for a posterior neck abscess. Patient 1st noticed this about a week ago, became painful swollen. Was seen in the ED over the weekend, discharged on doxycycline and cephalexin, without resolution. This began draining over the weekend and he subsequently returned to the ED, was admitted for IV antibiotics. Has been on IV vanco. CT scan showing soft tissue swelling, no fluid collection, bedside ultrasound x2 showing no fluid collection. The area was attempted to be drained with a needle without any production of fluid. This has been draining some small amounts of fluid since. Continues to cause him pain, has not changed in size. On exam there was a 7 x 5 cm area of induration which appears to be more of a phlegmon and a true abscess formation. The cellulitis surrounding the area appears improved at this time, remains tender I was unable to express any fluid from the area. No emergent surgical intervention needed at this time, hospitalist planning for discharge on Bactrim and Augmentin patient should follow up with us as an outpatient. Should continue with warm compresses 2 to 3 times a day. Keep this dressed as long as this is draining. If not resolving may need to have this surgically excised, will follow up in the office <Sedrick Díaz PA-C - Last Filed: 12/25/24 13:47> 49 year old male with a history of T2DM, Hypothyroid, kidney stones, seen in consult for a posterior neck abscess. Patient 1st noticed this about a week ago, became painful swollen. Was seen in the ED over the weekend, discharged on doxycycline and cephalexin, without resolution. This began draining over the weekend and he subsequently returned to the ED, was admitted for IV antibiotics. Has been on IV vanco. CT scan showing soft tissue swelling, no fluid collection, bedside ultrasound x2 showing no fluid collection. The area was attempted to be drained with a needle without any production of fluid. This has been draining some small amounts of fluid since. Continues to cause him pain, has not changed in size. On exam there was a 7 x 5 cm area of induration which appears to be more of a phlegmon and a true abscess formation. The cellulitis surrounding the area appears improved at this time, remains tender I was unable to express any fluid from the area. No emergent surgical intervention needed at this time, hospitalist planning for discharge on Bactrim and Augmentin patient should follow up with us as an outpatient. Should continue with warm compresses 2 to 3 times a day. Keep this dressed as long as this is draining. If not resolving may need to have this surgically excised, will follow up in the office Patient seen and examined and I concur with the above assessment and plan. Patient should follow up in our office in approximately 1 week for wound examination. Agree with discharge on oral antibiotics as well. Patient expressed understanding and agrees with the plan. <Gonsalo Jimenez MD - Last Filed: 12/25/24 15:01> Procedures Date of Service Date of Service: 12/25/24 <Sedrick Díaz PA-C - Last Filed: 12/25/24 13:47> 12/25/24 <Gonsalo Jimenez MD - Last Filed: 12/25/24 15:01>
--- NOTE | 2024-12-25 13:35 | HO.WOUND ---
Wound Consult: Initial 49 yr old male [place] to [facility] [place] 12[place]23[place]24 - See progress notes and H&P for detailed history. Wound consult placed for posterior neck abscess. Patient agreeable to assessment and photo documentation. Patient reports about 1 week duration, presented to ED and was d/cd on oral antibiotics, area began to drain and did not improve, but got larger so he presented back to the ED 12/23. Patient reports no history of similar. Posterior neck Etiology: abscess Measurements: 0.2cm x 0.2cm x 0.1cm Wound Bed:moist pink/yellow Drainage / Odor: scant purulent with gentle expression Edges: ? Ciara wound: ?area of induration felt with mild redness, no fluctuance Pain: yes Goals of Treatment: ? drainage absorption with durafiber Recommendations: Occipital/posterior neck: cleanse with saline, apply durafiber, cover with foam, change daily and PRN Re-consult wound care Nurse for wound deterioration or wound changes.
[2024-12-25 14:06] VITALS: BP 132/77; PULSE 88; RESP 18; TEMP 36.4; O2SAT 96
--- NOTE | 2024-12-25 14:13 | P.DS_ITS ---
DS: Providers Provider Date of Service: 12/25/24 Date of admission: 12/23/24 12:57 Date of discharge: 12/25/24 Primary care physician: LOUANN Brown Consults: 12/23/24 13:04 Consult to Infectious Diseases Routine Consulting Provider: [facility] Reason for consultation: cellulitis 12/25/24 08:59 Consult to Wound Care Routine Consulting Provider: [facility] W[facility] Reason for consultation: possible I/D of occipital wound 12/25/24 09:16 Consult to General Surgery Routine Consulting Provider: [facility] Sur[facility] Reason for consultation: I&D of occipital wound Has provider been notified: No Attending physician on discharge: Carlos Abrams Discharging clinician: Carlos Abrams DS: Diagnosis Discharge Diagnosis (1) Cellulitis: Status: Acute DS: Summary Hospital Course Hospital Course: 49-year-old male who presented to ED for occipital scalp infection. Patient st ated that began on Tuesday 12/19, CT scan negative for abscess or gas in soft tissues. Prescribed Keflex and doxycycline, however after failed treatment, presented to the hospital, complaining of discharge as well as subjective fevers. The ED patient had needle placement with no drainage, started on IV vancomycin. Today patient with spontaneous drainage, cultures obtained, patient states that he is feeling better, we will discharge with p.o. Augmentin which will cover anaerobes as well as Bactrim for MRSA coverage, patient advice to follow up with surgery and PCP. Patient was given information as well on current management, advised on avoiding clippers in the future. Folliculitis w/ failed outpatient tx Located to occipital area Soft tissue neck CT on 12/20/2024 showed soft tissue edema with no discrete abscess, will repeat US with no abscess -wound culture obtained -surgery consulted, follow up as outpatient transitioned from Vanc IV to PO augmentin BID and Bactrim BID to complete 7 extra days. monitor for any worsening secretions, fevers continue w/ wound care Diabetes mellitus type 2, chronic Continue metformin, diabteic diet Hypothyroidism Continue levothyroxine Normocytic anemia monitor for any bleeding, follow up w/ PCP All new and continued medications were discussed in depth with the patient, and new prescriptions were given directly to patient and/or verification of the prescriptions were sent to patient's preferred pharmacy directly. All side effects were discussed. Follow-up instructions were given. Patient voiced understanding. Patient was given the opportunity ask questions and express concerns, all of which were answered to their satisfaction. Patient was instructed to follow-up with his PCP within 3 to 10 days of discharge and head to the nearest emergency room or call 911 if symptoms worsen or new symptoms develop. This is a summary of the patient's stay; for more complete details please see chart. More than 35 minutes was spent with patient regarding workup, diagnosis and follow-up. Time Attestation Discharge Coordination Time (in mins): greater than 35 minutes Quality: Safe Use of Opioids Does Pt have an Active Cancer Diagnosis on the Problem List?: No Quality: Stroke Does the patient have a stroke diagnosis?: No Physical Exam Exam: Exam: General: AxOx3, No acute distress Head: AT/NC, neck folliculitis with mild secretion ENT: Moist mucous membranes Neck: supple CVS; RRR, S1 S2 normal Lungs: Clear bilateral breath sounds, no wheezes or crackles Abd: Soft non tender, non distended Ext: No edema and no calf tenderness MSK: moving all 4 limbs Skin: No cyanosis or edema Psych: Cooperative with exam Neurology: no focal deficit Vital Signs: Vital Signs: Last Vital Signs Temp 97.6 F 12/25/24 14:06 Pulse 88 12/25/24 14:06 Resp 18 12/25/24 14:06 BP 132/77 12/25/24 14:06 Pulse Ox 96 12/25/24 14:06 O2 Del Method Room Air 12/25/24 14:06 BMI result Body Mass Index 38.0 DS: Data Data Completed and Pending Labs on day of discharge: Laboratory Results - last 24 hr 12/24/24 12/24/24 12/24/24 15:44 20:12 20:45 Creatinine Estim Creat Clear Calc Estimated GFR POC Glucose 132 H 185 H Random Vancomycin 8.0 L 12/25/24 12/25/24 12/25/24 05:38 07:15 11:15 Creatinine 0.68 Estim Creat Clear Calc 202.1 Estimated GFR > 60 POC Glucose 145 H 218 H Random Vancomycin Preliminary micro results at discharge 12/23/24 11:10 Blood Culture - Preliminary Blood - Venous No growth after 48 hours. 12/23/24 11:05 Blood Culture - Preliminary Blood - Venous No growth after 48 hours. Discharge Plan Discharge Anticipated Discharge Date/Time: 12/25/24 13:55 Patient Disposition: Home, Self-Care Discharge Diagnosis: Folliculitis, T2DM Referrals: Gonsalo Jean Baptiste FNP- [Primary Care Provider, Internal Medicine] - 1 Week Gonsalo Jimenez MD [Physician, General Surgery] - 1 Week Discharge Medications: New amoxicillin-pot clavulanate 875-125 mg tablet 1 tab PO BID 7 Days Qty: 14 0RF sulfamethoxazole-trimethoprim [Bactrim DS] 800-160 mg tablet 1 tab PO BID 7 Days Qty: 14 0RF Continued (DME) blood-glucose meter [FreeStyle Lite Meter] Kit See Rx Instructions .Route Qty: 1 0RF Rx Instructions: Use to check blood sugar twice a day: fasting and a random Jardiance 10 mg tablet 10 mg PO DAILY 90 Days Qty: 90 3RF Januvia 25 mg tablet 25 mg PO DAILY 90 Days Qty: 90 3RF (DME) lancets [FreeStyle Lancets] 28 gauge misc See Rx Instructions .Route Qty: 200 1RF Rx Instructions: Use to check blood sugar twice a day: fasting and a random cholecalciferol (vitamin D3) 50 mcg (2,000 unit) tablet 50 mcg PO DAILY Qty: 60 5RF atorvastatin 10 mg tablet 10 mg PO DAILY 90 Days Qty: 90 1RF (DME) FreeStyle Nicole 14 Day [place] Misc See Rx Instructions .Route Qty: 1 5RF Rx Instructions: tid (DME) FreeStyle Nicole 14 Day Sensor Kit See Rx Instructions .Route Qty: 1 7RF Rx Instructions: tid testing metformin 500 mg tablet extended release 24 hr 500 mg PO DAILY (DME) FreeStyle Lite Strips Strip See Rx Instructions .Route Qty: 100 2RF Rx Instructions: Use to check blood sugar twice a day: fasting and a random levothyroxine 150 mcg tablet 150 mcg PO DAILY 90 Days Qty: 90 3RF Discontinued cephalexin 500 mg capsule 500 mg PO Q6H 7 Days Qty: 28 0RF Rx Instructions: prescribed 12/20/24 for 7 days doxycycline hyclate 100 mg tablet 100 mg PO BID 7 Days Qty: 14 0RF Rx Instructions: prescribed 12/20/24 for 7 days Discharge Orders: Discharge Order (Routine); Ordered 12/25/24 Ordered By: Carlos Abrams Activity on Discharge: As tolerated Stand Alone Forms: Patient Portal Discharge page Print Language: Nigerien Care Plan Goals: continue antibiotics, follow up with outpatient PCP, wait for wound culture Health Concerns: folliculitis/cellulitis Plan of Treatment: continue Augmentin and bactrim, follow up with wound culture results, wound care, PCP and Surgery follow up Assessment: 49-year-old male who presented to ED for occipital scalp infection. Patient stated that began on Tuesday 12/19, CT scan negative for abscess or gas in soft tissues. Prescribed Keflex and doxycycline, however after failed treatment, presented to the hospital, complaining of discharge as well as subjective fevers. The ED patient had needle placement with no drainage, started on IV vancomycin. Today patient with spontaneous drainage, cultures obtained, patient states that he is feeling better, we will discharge with p.o. Augmentin which will cover anaerobes as well as Bactrim for MRSA coverage, patient advice to follow up with surgery and PCP. Patient was given information as well on current management, advised on avoiding clippers in the future. Patient Instructions: Folliculitis (DC)
--- NOTE | 2024-12-25 14:33 | MHC.CM.PN ---
DP: PT HAS BEEN MEDICALLY CLEARED FOR DC HOME, NO SERVICES. CAR IN LOT.
[2024-12-27 19:38] LABS: HIV RNA PCR Qn Copies Not Detected Copies/mL; HIV RNA PCR Qn Log Copies Not Detected Log cps/mL
== END 2024-12-25 14:42 | disposition home or self-care (01) ==
LOC: HO.ED 10:06 → HO.EDOVER 13:36 → HO.S3 20:07 → HO.EDOVER 12-24 13:23 → HO.S3 12-24 13:23
PROVIDERS: Admitting Provider Nurse Practitioner Acute Care; Emergency Provider Emergency Medicine; PCP Nurse Practitioner Family; Visit Provider Student in an Organized Health Care Education/Training Program
DX: L03.811 Cellulitis of head [any part, except face] (principal); L30.9 Dermatitis, unspecified; E03.9 Hypothyroidism, unspecified; D50.8 Other iron deficiency anemias; L73.9 Follicular disorder, unspecified; K76.0 Fatty (change of) liver, not elsewhere classified; M54.2 Cervicalgia; Z23 Encounter for immunization; Z79.899 Other long term (current) drug therapy
CPT/HCPCS: 36415; 76536; 80048; 80053; 80202; 82565; 82947; 83605; 83735; 85025; 85027; 87040; 87070; 87077; 87186; 87205; 87536; 87900; 90471; 90656; 96365; 96366; 96372; 99221; 99285; J1650; J3373; J3374

== ENCOUNTER 2024-12-23 12:57 | Outpatient (BNV) | payer MEDICAID, SELFPAY | END 2024-12-24 17:00 | PROVIDERS: Admitting Provider Nurse Practitioner Acute Care; Emergency Provider Emergency Medicine; PCP Nurse Practitioner Family; Visit Provider Radiology Diagnostic Radiology | DX: M54.81 Occipital neuralgia (principal); L53.9 Erythematous condition, unspecified | CPT/HCPCS: 76536 ==

== ENCOUNTER → 2024-12-23 12:57 | Outpatient (BNV) | payer MEDICAID, SELFPAY | PROVIDERS: Admitting Provider Nurse Practitioner Acute Care; Emergency Provider Emergency Medicine; PCP Nurse Practitioner Family; Visit Provider Nurse Practitioner Acute Care | DX: E11.9 Type 2 diabetes mellitus without complications (principal) | CPT/HCPCS: 99223 ==

== ENCOUNTER → 2024-12-23 12:57 | Outpatient (BNV) | payer MEDICAID, SELFPAY | PROVIDERS: Admitting Provider Nurse Practitioner Acute Care; Emergency Provider Emergency Medicine; PCP Nurse Practitioner Family | DX: L03.115 Cellulitis of right lower limb (principal) | CPT/HCPCS: 99222 ==

== ENCOUNTER → 2024-12-23 12:57 | Outpatient (BNV) | payer MEDICAID, SELFPAY | PROVIDERS: Admitting Provider Nurse Practitioner Acute Care; Emergency Provider Emergency Medicine; PCP Nurse Practitioner Family; Visit Provider Internal Medicine | DX: L30.9 Dermatitis, unspecified (principal) | CPT/HCPCS: 99222 ==

== ENCOUNTER 2024-12-31 10:16 | Outpatient (AMB) | payer MEDICAID, SELFPAY ==
--- NOTE | 2024-12-31 10:36 | A.OFFVIS_ITS ---
Vital Signs 3 12/31/24 10:42 Height 6 ft 4 in Weight 312 lb BMI 38.0 BP 149/88 H Blood Pressure Location Rt brachial Position Sitting Pulse 85 Intake Visit Reasons: abscess of neck Intake Note: [place] [facility] [place] here today to follow up abscess on posterior neck. Has 3more days of Bactrim, Augmentin. 7d course. Patient c/o: site itchy, feels firm and solid. Denies oozing, bleeding. Manager Infrastructure Required: No Accompanied by: Self / Same As Patient Allergies No Known Allergies (No Known Allergies*) Allergy (Verified 12/31/24 10:42) HPI HPI abscess of neck: Details: He is doing well reports that the areas improving. States that the size is smaller, no longer causes him pain and is now itchy. He denies drainage from the site, denies fevers at home. He continues to take antibiotics that he was discharged with. Has been doing warm compresses about 1 time per day [facility] Medical History Hepatomegaly Type 2 diabetes mellitus Fatty liver DM (diabetes mellitus), type 2 with ophthalmic complications Kidney stones Hypothyroid Surgical History Hx of colonoscopy History of total right knee replacement (~09/2019) History of arthroscopy of right knee (~03/29/16) Family History Father Stroke Heart attack Low blood pressure Mother No problems noted. Daughter No problems noted. 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 5 x 2 cm area of induration, no erythema, no drainage, no fluctuance. Nontender Neuro General: patient oriented x3 Assessment & Plan Assessment & Plan (1) Neck abscess: Comment: Posterior Code(s): L02.11 - Cutaneous abscess of neck Category: Medical Plan 49-year-old male with a history of hypothyroid, kidney stones, diabetes on metformin, Januvia, Jardiance presenting to the office following admission to the hospital for posterior neck cellulitis, abscess. We were consulted for this patient while he was admitted for this issue, there was no fluid able to be drained at that time. Was discharged with Bactrim and Augmentin. He has been taking this as prescribed, still has a day or 2 left. He reports improvement in the area overall but there still remains a hard area that is now smaller than when we saw him. It is no longer painful, but is itchy. He has been continuing with once daily warm compresses. He denies any fevers at home denies any drainage from the site. On exam there was a 5 x 2 cm area of induration in the posterior neck. I am unable to appreciate any fluctuance, drainage the cellulitis appears resolved at this point. There was no indication for incision and drainage of the site at this time. Recommended continuing antibiotics, advised him to increase warm compresses to 2-3 times per day. This may resolve on its own with the supportive care, we will see him back in 2 weeks. If this is not resolving may need to schedule for excision down the road. He is agreeable to this plan, he will call with any concerns or questions prior Coding Level of Care Code New Pt Level 4 (77182) Diagnoses Neck abscess L02.11
[2024-12-31 10:42] VITALS: BP 149/88; PULSE 85; BMI 38.0
--- OUTSIDE RECORDS SUMMARY | 2024-12-31 11:51 | XMS_ITS | Clinical Summary ---
Author Organization [employer] Address [address] [place] [address] [address] [place] [address] Care Team Providers Care Pricing Actuary Name Role Phone Unavailable Primary Care Provider [...] Most Recently Relevant to Health Maintenance Insurance [facility]
--- OUTSIDE RECORDS SUMMARY | 2024-12-31 11:51 | XMS_ITS | Encounter Summary ---
Author Organization [employer] Address [address] [place] [address] [address] [address] Care Team Providers Care Stopper Grinder Name Role Phone Unavailable Primary Care Provider Unavailabl e Encounter Details Date Type Department Care Team (Latest Contact Info) Description 07/19/2021 Abstract [facility] CONVERSIONS Dental, Provider, DDS Social History [...]
--- OUTSIDE RECORDS SUMMARY | 2024-12-31 11:51 | XMS_ITS | Encounter Summary ---
Author Organization [employer] Address [address] [place] [address] [address] [address] Care Team Providers Care Supervisor Cook House Name Role Phone Unavailable Primary Care Provider Unavailabl e Reason for Visit * Reason Comments Med Refill Encounter Details Date Type Department Care Team (Late st Contact Info) Description 06/21/2024 Refill [facility] ADULT DENTAL [address] [place] [address] Carlos Cerna DDS [address] [place] [address] Social History Tobacco Use Types Packs/Day Years [...]
--- OUTSIDE RECORDS SUMMARY | 2024-12-31 11:51 | XMS_ITS | Encounter Summary ---
Author Organization [employer] Address [address] [place] [address] [place] [address] Care Team Providers Care Leaf Stamper Name Role Phone Unavailable Primary Care Provider Unavailabl e Reason for Visit * Reason Onset Date Comments insurance 03/19/2024 Encounter Details Date Type Department Care Team ([facility] st Contact Info) Description 03/19/2024 Telephone [facility] ADULT DENTAL [address] [place] [address] Marcial Tamez insurance Social History Tobacco Use [...]
--- OUTSIDE RECORDS SUMMARY | 2024-12-31 11:51 | XMS_ITS | Encounter Summary ---
Author Organization [employer] Address [address] [place] [address] [address] [address] Care Team Providers Care Devops Consultant Name Role Phone Unavailable Primary Care Provider Unavailabl e Encounter Details Date Type Department Care Team (Latest Contact Info) Description 10/09/2018 Abstract [facility] CONVERSIONS Dental, Provider, DDS Social History Tobacco [...]
--- OUTSIDE RECORDS SUMMARY | 2024-12-31 11:51 | XMS_ITS | Data Portability ---
Author Organization [place] - [facility] [id number] Address [address] [place] [address] Assessment No assessment recorded. Plan of Treatment [...] Address Organization Details Recorded Time Diabetes mellitus [id number] Active Sparkle Magee null, [place] - [facility] 4 10:53:58 Problem Notes None recorded. Procedures Surgical History Date Name Laterality Status Provider Name and Address Organization Details Recorded Time 4 OC-UDS Send Out Template NON DOT completed Sparkle Magee [place] - [facility] 01/16/2024 11:01:18 4 OC-DOT PHYSICAL completed Sparkle Magee [place] - [facility] 01/16/2024 10:51:17 Imaging [...] % 64 /min 16 /min 33.2 kg/m2 774295. 72 g 138/86 mm[Hg] Sparkle Magee [place] - [facility] 10:51:52 Social History [...] ICD10 Code Diagnosis IMO Codes Diagnosis Note [id number] [address] [address] [address] [place] [address] 03/02/2021 08:39:21 03/02/2021 12:07:20 [id number] ROBBIN Stephen [address] [place] [address] 01/16/2024 10:31:17 01/16/2024 11:27:13 History and physical examination, occupation [id number] Z02.1 The patient was given a 1 year DOT certificat ion given. Controlled DM2 Refer to scanned DOT physical exam forms and DOT certificat e for exam findings. 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
== END 2024-12-31 10:46 | disposition home or self-care (01) ==
PROVIDERS: PCP Nurse Practitioner Family
DX: L02.11 Cutaneous abscess of neck (principal)
CPT/HCPCS: 99214

== ENCOUNTER → 2024-12-31 10:16 | Outpatient (BNVA) | payer MEDICAID, SELFPAY | PROVIDERS: PCP Nurse Practitioner Family | DX: L02.11 Cutaneous abscess of neck (principal) | CPT/HCPCS: 99212 ==

== ENCOUNTER 2025-01-08 12:45 | Outpatient (AMB) | payer MEDICAID, SELFPAY ==
--- NOTE | 2025-01-08 12:49 | A.OFFPC_ITS ---
Vital Signs 01/08/25 12:50 Height 6 ft 4 in Weight 312 lb BMI 38.0 BP 138/86 Blood Pressure Location Lt brachial Position Sitting Pulse 86 Pulse Source Pulse Oximeter Pulse Oximetry (%) 96 Intake Visit Reasons: HDF ~ Post hospital discharge FU Allergies No Known Allergies (No Known Allergies*) Allergy (Verified 01/08/25 12:51) Tobacco use date assessed: 05/06/24 Dental Screening Dental Screen Date: 05/06/24 HPI HPI Comments History of Present Illness Details Patient is a 49-year-old male here for a hospital discharge follow-up. December 23, patient presented to the [facility] emergency department for an infection on his scalp which he says started 4 days prior. He had a CT scan that was negative for an abscess or gas in the soft tissues and he was prescribed Keflex and doxycycline on December 19, apparently the wound got worse and it but he had discharge and fevers so he went to the emergency department. In the ED, they tried to drain it they started him on IV vanco and he was admitted. Wound cultures were obtained and surgery was consulted. Blood cultures had no growth. Wound cultures grew MRSA that is resistant to penicillin. He was transitioned to p.o. Augmentin and Bactrim for 7 days and he was discharged home on Dec 25. He was told to follow up with surgery outpatient. Today, he tells me the wound is smaller, he has had no drainage or fevers. He took both antibiotics in full. He has follow up with surgery in one week. He has no other complaints and it just asking for some refills on medications. He acknowledges he has not had a thyroid check in awhile but knows there is a lab ordered so he is planning on getting that done today. [facility] Medical History Hepatomegaly Type 2 diabetes mellitus Fatty liver DM (diabetes mellitus), type 2 with ophthalmic complications Kidney stones Hypothyroid Surgical History Hx of colonoscopy History of total right knee replacement (~09/2019) History of arthroscopy of right knee (~03/29/16) Family History Father Stroke Heart attack Low blood pressure Mother No problems noted. Daughter No problems noted. 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 Cognitive needs: No Hearing needs: No Vision needs: No Questionnaire Thrive Questionnaire Date Thrive assessed: 05/06/24 I am a: Patient What is your living situation today?: I have a steady place to live Within the past 12 months, did the food you bought not last and you didn't have the money to get more?: Never true Within the past 12 months, did you worry whether your food would run out before you got money to buy more?: I choose not to answer this question Do you have trouble paying for medicines?: Yes Do you have trouble getting transportation to medical appointments?: No Do you have trouble paying your heating and electricity bill?: Yes Do you have trouble taking care of your child, family member or friend?: No Do you have trouble with day-to-day activities such as bathing, preparing meals, shopping, managing finances, etc.?: No Are you currently unemployed and looking for a job?: No Are you interested in more education?: No Please select the resources that you would like help with: None Currently or been in a relationship where the following occur: I choose not to answer THRIVE Score: 1 AUDIT C Alcohol Use Questionnaire (AUDIT-C) 1. How often do you have a drink containing alcohol?: Never 3. How often do you have six or more drinks on one occasion?: Never Total Score: 0 Score Reviewed/Action Taken: Yes SHAGUFTA-7 AMB Questionnaire SHAGUFTA-7 Date SHAGUFTA - 7 assessed: 05/06/24 Source: Developed by Drs. Domingo Estrada, Kayleigh Menjivar, Andrea Stevens and colleagues, with an educational salinas from [employer]. Review of Systems Const All systems reviewed & are unremarkable except as noted in HPI and below Physical exam (Primary Care) Vital Signs: Last Vital Signs Pulse 86 01/08/25 12:50 BP 138/86 01/08/25 12:50 Pulse Ox 96 01/08/25 12:50 BMI result Body Mass Index 38.0 Tobacco/Smoking Status: Tobacco use Status Tobacco use date assessed 05/06/24 01/08/25 12:52 Patient Tobacco Use Status Tobacco use Unknown 01/08/25 12:52 e-Cigarette/Vaping Use Never Used 01/08/25 12:52 Thrive Assessment: Date of Thrive Assessment Date Thrive assessed 05/06/24 01/08/25 12:52 Currently or been in a relationship where the following occur: I choose not to answer Const General: cooperative, healthy appearing, comfortable, no acute distress and well developed Orientation/consciousness: patient oriented x3 Limitations: no limitations HENMT Other: Occipital skull with palpable soft 1.5 cm round area of presumed residual infection, no drainage, erythema or warmth noted. Ears: hearing grossly normal bilaterally General nose exam: Normal external nose present Face and sinus: Yes normal facial exam Eyes General: appearance normal, both eyes and all related structures Neck Neck: Yes normal visual inspection and Yes full ROM Resp Effort & Inspection: normal respiratory effort and able to speak in complete sentences Skin General skin exam: no rashes or lesions noted Neuro General: patient oriented x3 Extrem General: Yes normal to inspection Coding Level of Care Code Est Pt Level 3 (23245) Diagnoses Hospital discharge follow-up Z09 Neck abscess L02.11 Assessment & Plan Assessment & Plan (1) Hospital discharge follow-up: Comment: Code(s): Z09 - Encounter for follow-up examination after completed treatment for conditions other than malignant neoplasm Category: Medical Plan: - Wound appears to be healing well with no signs or symptoms of infection. - Sent refills, as requested. However told patient he needs to get his thyroid rechecked before we could refill his medication as his last TSH was undetectable 1 year ago and he never had the lab repeated. (2) Neck abscess: Comment: Posterior Code(s): L02.11 - Cutaneous abscess of neck Category: Medical Plan: as above Medications: Refilled atorvastatin 10 mg PO DAILY 90 tabs 1RF 90 days sitagliptin phosphate (Januvia) 25 mg PO DAILY 90 tabs 3RF 90 days empagliflozin (Jardiance) 10 mg PO DAILY 90 tabs 3RF 90 days E11.9 - Type 2 diabetes mellitus without complications blood sugar diagnostic [facility] Use to check blood sugar twice a day: fasting and a random 100 ea 2RF E11.9 - Type 2 diabetes mellitus without complications
[2025-01-08 12:50] VITALS: BP 138/86; PULSE 86; O2SAT 96; BMI 38.0
--- OUTSIDE RECORDS SUMMARY | 2025-01-08 15:53 | XMS_ITS | Encounter Summary ---
Author Organization [employer] Address [address] [place] [address] [address] [address] Care Team Providers Care Picker Machine Operator Name Role Phone Unavailable Primary Care Provider Unavailabl e Encounter Details Date Type Department Care Team (Latest Contact Info) Description 10/09/2018 Abstract [facility] CONVERSIONS Dental, Provider, DDS Social History [...]
--- OUTSIDE RECORDS SUMMARY | 2025-01-08 15:53 | XMS_ITS | Encounter Summary ---
Author Organization [employer] Address [address] [place] [address] [address] [address] Care Team Providers Care Hedis Review Nurse Name Role Phone Unavailable Primary Care Provider Unavailabl e Reason for Visit * Reason Onset Date Comments insurance 03/19/2024 Encounter Details Date Type Department Care Team ([facility] st Contact Info) Description 03/19/2024 Telephone [facility]ULT [facility]AL [address] [place] [address] Marcial Tamez insurance Social History Tobacco Use [...]
--- OUTSIDE RECORDS SUMMARY | 2025-01-08 15:53 | XMS_ITS | Encounter Summary ---
Author Organization [email or web address] Address [address] [place] [address] [address] [address] Care Team Providers Care Packer Insulation Name Role Phone Unavailable Primary Care Provider Unavailabl e Reason for Visit * Reason Comments Med Refill Encounter Details Date Type Department Care Team (Late st Contact Info) Description 06/21/2024 Refill [facility] ADULT DENTAL [address] [place] [address] Carlos Cerna DDS [address] [place] [address] Social History Tobacco Use Types Packs/Day Years [...]
--- OUTSIDE RECORDS SUMMARY | 2025-01-08 15:53 | XMS_ITS | Clinical Summary ---
Author Organization [employer] Address [address] [place] [address] [address] [place] [address] Care Team Providers Care Cement Cutter Name Role Phone Unavailable Primary Care Provider [...] Most Recently Relevant to Health Maintenance Insurance [facility]
--- OUTSIDE RECORDS SUMMARY | 2025-01-08 15:53 | XMS_ITS | Encounter Summary ---
Author Organization [employer] Address [address] [place] [address] [address] [address] Care Team Providers Care Circuit Board Drafter Name Role Phone Unavailable Primary Care Provider Unavailabl e Encounter Details Date Type Department Care Team (Latest Contact Info) Description 07/19/2021 Abstract [facility] CONVERSIONS Dental, Provider, DDS Social History [...]
--- OUTSIDE RECORDS SUMMARY | 2025-01-08 15:53 | XMS_ITS | Data Portability ---
Author Organization [place] - [facility] [address] Address [address] [place] [address] Assessment No assessment recorded. Plan of Treatment [...] Address Organization Details Recorded Time Diabetes mellitus [id number] Active [place], [place] - [facility] 4 10:53:58 Problem Notes None recorded. Procedures Surgical History Date Name Laterality Status Provider Name and Address Organization Details Recorded Time 4 OC-UDS Send Out Template NON DOT completed [place] [facility] 01/16/2024 11:01:18 4 OC-DOT PHYSICAL completed [place] [facility] 01/16/2024 10:51:17 Imaging [...] % 64 /min 16 /min 33.2 kg/m2 321123. 72 g 138/86 mm[Hg] [place] [place] [facility] 10:51:52 Social History [...] ICD10 Code Diagnosis IMO Codes Diagnosis Note [id number] [address] [address] [address] [place] [address] 03/02/2021 08:39:21 03/02/2021 12:07:20 [id number] ROBBIN Stephen [address] [place] [address] 01/16/2024 10:31:17 01/16/2024 11:27:13 History and physical examination, occupation 190484105 Z02.1 The patient was given a 1 year DOT certificat ion given. Controlled DM2 Refer to scanned DOT physical exam forms and DOT certificat e for exam findings. 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
== END 2025-01-08 15:41 | disposition home or self-care (01) ==
LOC: HO.HMCC 12:46
PROVIDERS: PCP Nurse Practitioner Family; Visit Provider Physician Assistant
DX: Z09 Encounter for follow-up examination after completed treatment for conditions other than malignant neoplasm (principal); L02.11 Cutaneous abscess of neck

== ENCOUNTER 2025-01-08 12:45 | Outpatient (REF) | payer MEDICAID, SELFPAY ==
[2025-01-08 16:19] LABS: MANUAL DIFF FLAG NO
[2025-01-08 16:25] LABS: Hematocrit 37.2 % (42.0-52.0); Hemoglobin 12.2 g/dl (14.0-18.0); Imm Gran Abs Auto 0.01 X10*3/uL (0.00-0.03); Imm Gran Pct Auto 0.2 % (0.0-0.4); Lymphocytes Absolute Auto 2.3 X10*3/uL (1.2-4.9); Mean Corpuscular HGB Conc 32.8 g/dl (31.0-36.0); Mean Corpuscular Hemoglobin 32.8 pg (27.0-33.0); Mean Corpuscular Volume 100.0 fL (80.0-98.0); NRBC Abs Auto 0.000 X10*3/uL (0.0-0.012); NRBC Pct Auto 0.0 /100WBC (0.0-0.2); Platelet Count 135 X10*3/uL (160-400); Red Blood Count 3.72 X10*6/uL (4.60-5.80); White Blood Count 5.6 X10*3/uL (4.8-10.8)
[2025-01-08 16:55] LABS: Alanine Aminotransferase 56 U/L (0-40); Albumin Level 4.6 g/dL (3.5-5.0); Alkaline Phosphatase 81 U/L (39-117); Aspartate Amino Transferase 74 U/L (5-37); Cholesterol 150 mg/dL (<200); HDL Cholesterol 39 mg/dL (>40); Total Protein 7.6 g/dL (6.5-8.0); Triglycerides 230 mg/dL (<150)
[2025-01-08 17:17] LABS: Free T4 (Free Thyroxine) 0.93 ng/dL (0.71-1.85)
[2025-01-08 17:19] LABS: Thyroid Stimulating Hormone 4.16 uIU/mL (0.32-4.0)
== END 2025-01-08 12:46 | disposition home or self-care (01) ==
LOC: HO.HMGCLDS 12:45
PROVIDERS: Nurse Practitioner Adult Health; PCP Nurse Practitioner Family; Visit Provider Nurse Practitioner Family
DX: Z09 Encounter for follow-up examination after completed treatment for conditions other than malignant neoplasm (principal); Z12.5 Encounter for screening for malignant neoplasm of prostate; L02.11 Cutaneous abscess of neck; E11.9 Type 2 diabetes mellitus without complications; E66.9 Obesity, unspecified; E03.9 Hypothyroidism, unspecified; Z68.38 Body mass index [BMI] 38.0-38.9, adult
CPT/HCPCS: 36415; 80061; 80076; 84153; 84439; 84443; 85025; 99212

== ENCOUNTER 2025-02-06 11:39 | Outpatient (AMB) | payer OTHER, SELFPAY ==
[2025-02-06 11:44] VITALS: BP 144/88; PULSE 70; O2SAT 96; BMI 38.3
--- NOTE | 2025-02-06 11:44 | A.OFFVIS_ITS ---
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 Officer Required: No Accompanied by: Self / Same As Patient Allergies No Known Allergies (No Known Allergies*) Allergy (Verified 02/06/25 11:57) Medication List - Last Reconciled 02/06/25 by Nikki Swanson PA-C atorvastatin 10 mg PO DAILY 90 days blood sugar diagnostic (FreeStyle Lite Strips) Use to check blood sugar twice a day: fasting and a random blood-glucose meter (FreeStyle Lite Meter kit) Use to check blood sugar twice a day: fasting and a random cholecalciferol (vitamin D3) 50 mcg PO DAILY empagliflozin (Jardiance) 10 mg PO DAILY 90 days flash glucose scanning reader (FreeStyle Nicole 14 Day [place]) tid flash glucose sensor (FreeStyle Nicole 14 Day Sensor kit) tid testing lancets (FreeStyle Lancets) Use to check blood sugar twice a day: fasting and a random levothyroxine 150 mcg PO DAILY 90 days metformin ER 500 mg PO DAILY HPI HPI T2DM: Details: Patient is a 49-year-old male with a significant past medical history of hypertension, hyperlipidemia, hepatomegaly, elevated LFTs and type 2 diabetes presenting today for a consultation regarding his type 2 diabetes. He previously was following with my colleague but has not been seen in about 7 months. Endo: Dm-most recent A1c 6.1. He was diagnosed with diabetes 2022. He is currently managed with Jardiance 10 mg daily, metformin 500 mg daily and Tradjenta 5 mg daily. 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 Hypoglycemia- denies, knows how to treat blood sugars Hyperglycemia- denies CV: Blood pressure today in the office is 144/88 he is currently on. Cholesterol is managed with atorvastatin 10 mg [facility] Medical History Hepatomegaly Type 2 diabetes mellitus Fatty liver DM (diabetes mellitus), type 2 with ophthalmic complications Kidney stones Hypothyroid Surgical History Hx of colonoscopy History of total right knee replacement (~09/2019) History of arthroscopy of right knee (~03/29/16) Family History Father Stroke Heart attack Low blood pressure Mother No problems noted. Daughter No problems noted. 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 Cognitive needs: No Hearing needs: No Vision needs: No Physical Exam Vital Signs: Last Vital Signs Pulse 70 02/06/25 11:44 BP 144/88 H 02/06/25 11:44 Pulse Ox 96 02/06/25 11:44 Oxygen Delivery Method Room Air 02/06/25 11:44 BMI result Body Mass Index 38.3 Const Orientation/consciousness: patient oriented x3 HEENT Ears: hearing grossly normal bilaterally Neck Thyroid: Thyroid normal Lymphatic: no lymphadenopathy noted Resp Auscultation: clear to auscultation bilaterally Cardio Rate: regular rate Rhythm: regular rhythm Heart sounds: S1 normal heart sound present and S2 normal heart sound present Skin General skin exam: no rashes or lesions noted Neuro General: patient oriented x3, gait normal and no focal motor deficits Results AMB Hemoglobin A1c AMB Hemoglobin A1c 6.1 % Last Edit by SARAHI Hernandez on 02/06/25 12:09 Results Reviewed Results Reviewed: Laboratory Tests 12/25/24 12/25/24 01/08/25 05:38 11:15 13:43 Creatinine 0.68 Estimated GFR > 60 POC Glucose 218 H Triglycerides 230 H Cholesterol 150 LDL Cholesterol, Calc 65 HDL Cholesterol 39 L Assessment & Plan Assessment & Plan (1) Type 2 diabetes mellitus: Code(s): E11.9 - Type 2 diabetes mellitus without complications Category: Medical Plan: continue metformin and jardiance stop trajenta start trulicity. we discussed risks and benefits and adverse effects of the medication short term follow up. Orders: Orders AMB Hemoglobin A1c Today E11.9 - Type 2 diabetes mellitus without complications, Z13.9 - Encounter for screening, unspecified Medications: New dulaglutide (Trulicity) 0.75 mg (0.5 mL) subcut QWEEK 2 mL 3RF metformin ER 500 mg PO DAILY 90 tabs 1RF Refilled empagliflozin (Jardiance) 10 mg PO DAILY 90 tabs 3RF 90 days E11.9 - Type 2 diabetes mellitus without complications blood sugar diagnostic (FreeStyle Lite Strips) Use to check blood sugar twice a day: fasting and a random 100 ea 2RF E11.9 - Type 2 diabetes mellitus without complications Discontinued flash glucose sensor (FreeStyle Nicole 14 Day Sensor kit) Discontinued Reason: Doctor's Order tid testing 1 ea 7RF E11.9 - Type 2 diabetes mellitus without complications flash glucose scanning reader (FreeStyle Nicole 14 Day [place]) Discontinued Reason: Doctor's Order tid 1 ea 5RF E11.9 - Type 2 diabetes mellitus without complications Coding Level of Care Code Est Pt Level 4 (14441) Add On Problem Visit Only Diagnoses Type 2 diabetes mellitus E11.9
[2025-02-06 11:54] LABS: Glucose, Whole Blood 117 mg/dL (60-115)
== END 2025-02-06 12:12 | disposition home or self-care (01) ==
LOC: HO.ENCR 11:39
PROVIDERS: PCP Nurse Practitioner Family; Visit Provider Physician Assistant
DX: Z13.9 Encounter for screening, unspecified (principal); E11.9 Type 2 diabetes mellitus without complications

== ENCOUNTER → 2025-02-06 11:39 | Outpatient (BNVA) | payer OTHER, SELFPAY | PROVIDERS: PCP Nurse Practitioner Family; Visit Provider Physician Assistant | DX: E11.9 Type 2 diabetes mellitus without complications (principal); Z79.84 Long term (current) use of oral hypoglycemic drugs | CPT/HCPCS: 82947; 83036; 99212 ==